=== PATIENT | male | born 1940 | race Caucasian/White ===

== ENCOUNTER → 2018-01-26 08:08 | Outpatient (CLI) | payer MEDICARE, OTHER, SELFPAY ==
[2018-01-26 09:56] LABS: AST(SGOT) 19 U/L (15-37); Alanine Aminotransfer ALT/SGPT 27 U/L (16-61); Albumin, Serum 3.6 g/dL (3.2-5.0); Alkaline Phosphatase 99 U/L (45-117); Bilirubin, Direct 0.08 mg/dL (0.00-0.30); Cholesterol 124 mg/dL (200); Globulin 3.7 g/dL (2.2-4.2); High Density Lipoprotein 25 mg/dL; Protein, Total 7.3 g/dL (6.4-8.2); Triglycerides 168 mg/dL; Very Low Density Lipoprotein 34 mg/dL (5-40)
== END ==
PROVIDERS: Family Provider Family Medicine; PCP Family Medicine; Visit Provider Physician Assistant Medical
DX: E78.5 Hyperlipidemia, unspecified (principal)
CPT/HCPCS: 36415; 80061; 80076

== ENCOUNTER → 2018-05-08 14:08 | Outpatient (CLI) | payer MEDICARE, OTHER, SELFPAY ==
[2018-05-08 14:47] LABS: Absolute Lymphocyte Count 2.24 X10^3/ul (0.83-4.51); Absolute Neutrophil Count 4.7 X10^3/uL (2.0-7.7); Basophil# 0.02 X10^3/uL; Basophil% 0.3 % (0-1); Eosinophil# 0.39 X10^3/uL; Eosinophils% 4.9 % (0-5); Hemoglobin 13.6 g/dl (13.0-16.5); Lymphocyte # 2.24 X10^3/ul (4.0); Lymphocyte % 28.4 % (19-41); Mean Corpuscular Hgb 27.9 pg (27.0-32.0); Monocyte# 0.56 X10^3/uL; Monocyte% 7.1 % (0-10); Neutrophil # 4.66 X10^3/uL (2.7-7.7); Neutrophil % 59.2 % (47-70); Platelet Count 246 K/mm3 (150-450); Red Blood Count 4.88 M/mm3 (4.6-6.2); White Blood Count 7.9 K/mm3 (4.4-11.0)
[2018-05-08 14:50] LABS: POSITIVE COUNT NO; POSITIVE DIFFERENTIAL NO; POSITIVE MORPHOLOGY NO
[2018-05-08 14:59] LABS: Anion Gap 8 (5-15); BUN 22 mg/dL (7-18); BUN/Creat Ratio 13.3 RATIO (10-20); Chloride 106 mmol/L (98-107); Creatinine, Serum 1.66 mg/dL (0.70-1.30); EST Glomerular Filtration Rate 43 mL/min (>60); Est Glom Filt Rate - Afr Amer 52 mL/min (>60); Glucose 273 mg/dL (74-106); Potassium 4.2 mmol/L (3.5-5.1); Sodium Level 138 mmol/L (136-145)
== END ==
PROVIDERS: Family Provider Family Medicine; PCP Family Medicine; Referring Provider Physician Assistant Medical; Visit Provider Physician Assistant Medical
DX: I10 Essential (primary) hypertension (principal); E78.5 Hyperlipidemia, unspecified; I25.10 Atherosclerotic heart disease of native coronary artery without angina pectoris
CPT/HCPCS: 36415; 80048; 85025

== ENCOUNTER → 2018-05-14 05:49 | Outpatient (CLI) | payer MEDICARE, OTHER, SELFPAY ==
--- NOTE | 2018-05-14 08:59 | STRESSREP ---
Stress Test Report Exercise myocardial perfusion stress test. 77-year-old male with a history of chest pain. Stress protocol: Resting EKG demonstrates sinus rhythm with a rate of 56 bpm normal intervals and noted resting blood pressure 148/62 mmHg. The patient exercised according to regular Phuc protocol for a total duration of 7 minutes and 16 seconds. The maximum heart rate attained was 137 bpm which is 94% of maximum predicted heart rate the maximum workload was 8.9 metabolic equivalents. At rest there were no ST or T wave changes noted suggest ischemia peak exercise upsloping ST changes only were noted with no meet the criteria for ischemia. No clinical angina was noted. The resting blood pressures 148/62 with a peak blood pressure 182/72 mmHg. Myocardial perfusion protocol. 11.0 mCi of the dictation by sestamibi was injected at rest. The patient exercised according to regular Phuc protocol for 7 minutes and 16 seconds and at peak exercise 33.0 mCi of technetium 99m sestamibi was injected stress images were obtained stress and rest images were reconstructed and compared in the short axis vertical long horizontal long axis. Gated images were also obtained for next Perfusion SPECT analysis: Review of the stress images demonstrate normal uptake of tracer noted in all areas of myocardium. The resting images similarly demonstrate normal uptake of tracer noted in all areas of myocardium. No areas of reversibility are noted suggest ischemia. Gated SPECT analysis: The gated ejection fraction is noted to be 59%. Conclusion: Normal exercise myocardial perfusion stress test at a moderate workload. Preserved ejection fraction.
== END ==
PROVIDERS: Family Provider Family Medicine; PCP Family Medicine; Referring Provider Internal Medicine Cardiovascular Disease; Visit Provider Internal Medicine Cardiovascular Disease
DX: R07.9 Chest pain, unspecified (principal); I25.10 Atherosclerotic heart disease of native coronary artery without angina pectoris
CPT/HCPCS: 78452; 93017; A9500; A4216

== ENCOUNTER 2019-08-07 20:05 | Observation (INO) | payer MEDICARE, OTHER, SELFPAY ==
[2019-01-25 08:36] VITALS: BMI 28.8
[2019-08-07 20:07] VITALS: BP 159/62; PULSE 77; RESP 18; TEMP 36.9; O2SAT 98; BMI 29.1
--- NOTE | 2019-08-07 20:39 | RAD_ITS ---
STUDY: X-RAY CHEST REASON FOR EXAM: Male, 78 years old. Chest and back pain TECHNIQUE: Single AP portable view of the chest. COMPARISON: October 21, 2011 FINDINGS: There are monitoring devices. The lungs are clear and expanded. There is no demonstrated pleural abnormality. Normal size heart. Normal mediastinum and ramya. Normal visualized pulmonary arteries. Normal visualized aortic arch and descending thoracic aorta. Normal visualized thoracic spine. There is degenerative osteoarthritis of the bilateral shoulders. There is no demonstrated abnormality of the visualized soft tissue structures of the upper abdomen. RAD/Chest 1 View (Portable) IMPRESSION: No acute cardiopulmonary disease. Electronically Signed: Mitchell Pizarro MD at 21:14 EST , Service support ,
--- NOTE | 2019-08-07 20:39 | EKG12_ITS ---
Test Reason : CP Blood Pressure : / mmHG Vent. Rate : 074 BPM Atrial Rate : 074 BPM P-R Int : 152 ms QRS Dur : 086 ms QT Int : 382 ms P-R-T Axes : 016 031 021 degrees QTc Int : 424 ms Normal sinus rhythm Normal ECG Confirmed by RONY MARSHALL, STAN ([id number]), editorial clerk TANYA KNIGHT ([id number]) on 08/09/2019 2:14:59 PM Referred By: Brian Larios Confirmed By:STAN URIBE MD
[2019-08-07 21:24] VITALS: BP 148/73; PULSE 70; RESP 18; O2SAT 95
[2019-08-07 21:29] LABS: Absolute Lymphocyte Count 2.62 X10^3/uL (0.83-4.51); Absolute Neutrophil Count 6.4 X10^3/uL (2.0-7.7); Basophil# 0.03 X10^3/uL; Basophil% 0.3 % (0-1); Eosinophil# 0.57 X10^3/uL; Eosinophils% 5.4 % (0-5); Hematocrit 37.4 % (40-54); Hemoglobin 12.7 g/dL (13.0-16.5); Lymphocyte # 2.62 X10^3/ul (4.0); Lymphocyte % 24.7 % (19-41); Mean Corpuscular Hgb 28.2 pg (27.0-32.0); Mean Corpuscular Volume 83.1 fL (80-94); Mean Platelet Vol. 10.3 fl (6.2-12.0); Monocyte# 0.92 X10^3/uL; Monocyte% 8.7 % (0-10); NRBC Flagged by Analyzer 0 % (0-5); Neutrophil # 6.42 X10^3/uL (2.7-7.7); Neutrophil % 60.5 % (47-70); Platelet Count 224 K/mm3 (150-450); RBC Distribution Width CV 12.7 % (11.6-14.6); RBC Distribution Width SD 38.3 fl (35.1-43.9); White Blood Count 10.6 K/mm3 (4.4-11.0)
[2019-08-07 21:36] LABS: ALB/GLOB Ratio 0.9 RATIO (0.9-2.4); AST(SGOT) 17 U/L (15-37); Alanine Aminotransfer ALT/SGPT 30 U/L (16-61); Albumin, Serum 3.6 g/dL (3.2-5.0); Alkaline Phosphatase 96 U/L (45-117); Anion Gap 8 (5-15); BUN 16 mg/dL (7-18); Chloride 106 mmol/L (98-107); Creatinine, Serum 1.45 mg/dL (0.70-1.30); EST Glomerular Filtration Rate 50 mL/min (>60); Est Glom Filt Rate - Afr Amer 61 mL/min (>60); Estimated Creatinine Clearance 44.75 ml/min; Globulin 3.8 g/dL (2.2-4.2); Glucose 237 mg/dL (74-106); Lipase 219 U/L (73-393); Potassium 4.3 mmol/L (3.5-5.1); Protein, Total 7.4 g/dL (6.4-8.2); Sodium Level 136 mmol/L (136-145)
--- NOTE | 2019-08-07 22:13 | ED.DCSUM_ITS ---
- ER Visit Summary Date of Service: 08/07/19 Chief Complaint: Chest pain History of Present Illness: The patient is a 78 M with bilateral upper chest pain that radiates to his shoulders. It started this morning. Nothing seemed to bring it on. Nothing makes it worse. Nothing makes it better. He took some aspirin. He has a history of hypertension, hyperlipidemia, coronary disease. Last stress test was May 2018 and it was normal. Denies any history of PE or DVT. Denies any history of aortic disease. He is not having any GI symptoms or complaints. Physical Examination: Afebrile and vital signs unremarkable. Alert and oriented. No acute distress. Heart regular. Lungs clear. Abdomen soft nontender. Skin is normal in color. Extremities nontender with no edema. Pulses strong and equal. Test Results: EKG shows sinus rhythm at a rate of 74. No sign of ischemia or infarction pattern. Hemoglobin 12.7, glucose 237, creatinine 1.45, hepatic panel and lipase normal. Troponin normal. Chest x-ray showed nothing acute. Emergency Department Course and Treatment: EKG was done and the patient was placed on a monitor. I treated him with aspirin, but he declined as he had taken it prior to arrival. Pain was subsiding. His work-up was all fairly unremarkable. Because of his age, risk factors, symptoms, I am recommending observation and will contact the hospitalist. His last stress test was normal in May 2018. Treatment Plan: As above Disposition: PCU observation Impression: 1. Chest pain This note was generated with [employer] dictation software. It may contain incorrect words, spelling, and punctuation that were not noted in review of the chart prior to signing ED Disposition - Plan for ED Patient: Referrals: Shivam Cullen MD [Primary Care Provider] -
--- NOTE | 2019-08-07 22:16 | HP.PCM_ITS ---
Problem List (1) Anginal equivalent Status: Acute (2) History of coronary artery stent placement Status: Chronic Comment: PCI-CUATE of proximal to mid RCA w/ 4.0 x 38 mm Ion Stent 05/31/2011 (3) Essential (primary) hypertension Status: Chronic (4) Hyperlipidemia Status: Chronic Qualifiers: Hyperlipidemia type: pure hypercholesterolemia Qualified Code(s): E78.00 - Pure hypercholesterolemia, unspecified; E78.0 - Pure hypercholesterolemia (5) Atherosclerotic heart disease of [place] coronary artery without angina pectoris Status: Chronic Qualifiers: [place] vs. transplanted heart: [place] heart Qualified Code(s): I25.10 - Atherosclerotic heart disease of [place] coronary artery without angina pectoris Comment: PCI-CUATE of proximal to mid RCA w/ 4.0 x 38 mm Ion Stent 05/31/2011 History of Present Illness Date of Admission: 08/07/19 Chief Complaint: Chest Pain The patient is a 78 year old M with a significant history of CAD status post stent; diabetes mellitus; hyperlipidemia and hypertension who presents at the emergency department with chest pain. He described his chest pain as a feeling of gas that begins from his epigastric region and goes to his chest and even into his bilateral shoulders. His chest pain started several hours before presentation. A day before presentation patient ate sauerkraut before going to sleep. When he woke up in the morning his chest pain started at about 6 AM. Patient attributes his chest pain to the sauerkraut that he ate On the day of presentation he took his usual daily dose of baby aspirin in the morning and and a dose of baby aspirin not too long before coming to emergency department. As such he refused any more aspirin at the emergency department. Chest pain increases when he coughs and when he take a deep breath. He took some ruel amy which he thinks helped improve the chest pain. He denies any shortness of breath; nausea; vomiting or diaphoresis. Past Medical History Past Medical History (Chronic Problems): Chronic Problems (Last Reviewed 08/08/19 @ 02:18 by Brian Larios MD) History of coronary artery stent placement (Chronic 05/31/11) PCI-CUATE of proximal to mid RCA w/ 4.0 x 38 mm Ion Stent 05/31/2011 Essential (primary) hypertension (Chronic) Hyperlipidemia (Chronic) Atherosclerotic heart disease of [place] coronary artery without angina pectoris (Chronic) PCI-CUATE of proximal to mid RCA w/ 4.0 x 38 mm Ion Stent 05/31/2011 Medical History: Medical History (Last Reviewed 08/08/19 @ 02:20 by Brian aLrios MD) Essential (primary) hypertension (Chronic) I10 Hyperlipidemia (Chronic) E78.5 Atherosclerotic heart disease of [place] coronary artery without angina pectoris (Chronic) I25.10 PCI-CUATE of proximal to mid RCA w/ 4.0 x 38 mm Ion Stent 05/31/2011 GERD (gastroesophageal reflux disease) K21.9 Type II diabetes mellitus E11.9 Allergies sulfamethoxazole [From Bactrim] Allergy (Severe, Verified 08/07/19 20:06) Shortness of breath severe itching and SOB trimethoprim [From Bactrim] Allergy (Severe, Verified 08/07/19 20:06) Shortness of breath severe itching and SOB acyclovir Allergy (Verified 08/07/19 20:06) Shortness of breath cetirizine HCl [From Zyrtec] Allergy (Verified 08/07/19 20:06) Rash doxepin [Doxepin] Allergy (Verified 08/07/19 20:06) Other fluoxetine HCl [From Prozac] Allergy (Verified 08/07/19 20:06) Other hydromorphone HCl [From Dilaudid] Allergy (Verified 08/07/19 20:06) Other levofloxacin [From Levaquin] Allergy (Verified 08/07/19 20:06) Other losartan [Losartan] Allergy (Verified 08/07/19 20:06) Other ramipril Allergy (Verified 08/07/19 20:06) Other venlafaxine HCl [From Effexor] Allergy (Verified 08/07/19 20:06) Other fluvoxamine maleate [From Luvox] Adverse Reaction (Verified 08/07/19 20:06) Other gemfibrozil [From Lopid] Adverse Reaction (Verified 08/07/19 20:06) Unknown metoprolol Adverse Reaction (Verified 08/07/19 20:06) Other nefazodone HCl [From Serzone] Adverse Reaction (Verified 08/07/19 20:06) Nausea/Vom/Diarrhea nortriptyline [Nortriptyline] Adverse Reaction (Verified 08/07/19 20:06) Other trazodone Adverse Reaction (Verified 08/07/19 20:06) Nausea/Vom/Diarrhea MOLD Adverse Reaction (Uncoded 08/07/19 20:06) Unknown Home Medications: Ambulatory Orders Medication Instructions Recorded Aspirin E.C. [Ecotrin] 81 mg PO DAILY@0800 04/14/14 Pravastatin [Pravachol] 80 mg PO DAILY 04/14/14 amlodipine 10 mg tablet 10 mg PO QDAY 09/05/17 cyanocobalamin (vitamin B-12) 1,000 mcg PO QDAY 09/05/17 1,000 mcg tablet insulin glargine 100 unit/mL 18 unit SC QDAY 09/05/17 subcutaneous solution multivitamin 1 tab PO QDAY 09/05/17 nitroglycerin 0.4 mg sublingual 0.4 mg SUBLINGUAL Q5-15M PRN 09/05/17 tablet valsartan 80 mg tablet 80 mg PO QDAY 09/05/17 clonazepam 0.5 mg tablet 0.5 mg PO BID tab 09/07/17 glipizide 5 mg tablet, extended 5 mg PO DAILY 90 Days #90 tab 05/08/18 release 24 hr metformin 500 mg tablet 1,000 mg PO BIDCM tab 05/08/18 pantoprazole 40 mg tablet,delayed 40 mg PO DAILY #30 tab 02/06/19 release clopidogrel 75 mg tablet 75 mg PO DAILY #30 tab 03/19/19 Surgical History: Surgical History (Last Reviewed 08/08/19 @ 02:18 by Brian Larios MD) History of coronary artery stent placement (Chronic) Onset Date: 05/31/11 Z95.5 PCI-CUATE of proximal to mid RCA w/ 4.0 x 38 mm Ion Stent 05/31/2011 History of left heart catheterization Onset Date: 10/22/11 Z98.890 80% stenosis in the distal LAD. Patent pie-existing stent in the proximal to mid RCA Surgical History: angioplasty, appendectomy, cholecystectomy Smoking Status: Never smoker - *Family History Maternal Family History: Family History (Last Reviewed 08/08/19 @ 02:04 by Brian Larios MD) Father S/P CABG (coronary artery bypass graft), Onset Age: 74 CAD (coronary artery disease) Myocardial infarction Sudden cardiac Mother Diabetes CAD (coronary artery disease) Sudden cardiac Myocardial infarction History Items: No pertinent history Review of Systems Constitutional: Denies: Chills, Fever, Weight Change HEENT: Denies: Head Aches, Sinus Congestion, Sinus Drainage Cardiovascular: Reports: Chest Pain. Denies: Palpitations Respiratory: Denies: Cough, Shortness of breath at rest, Sputum production Gastrointestinal: Reports: Abdominal Pain, Dyspepsia. Denies: Nausea, Vomiting Genitourinary: Denies: Dysuria Musculoskeletal: Reports: Shoulder Pain. Denies: Joint Pain, Joint Tenderness Skin: Denies: Rash, Wounds Neurological: Denies: Numbness, Tingling, Focal weakness Psychiatric: Denies: Anxiety, Depression, Homicidal Ideations, Suicidal Ideations Hematologic/ Lymphatic: Denies: Easy Bruising, Easy Bleeding VTE Information - Inpt Only VTE Present on Admission: No VTE Mechan Device Prophylaxis: SCD's VTE Pharm Prophylaxis ordered?: No Patient Problems: Active and Suspected Problems (Last Reviewed 08/08/19 @ 02:18 by Brian Larios MD) Anginal equivalent (Acute) - Physical Exam Vitals/I&O's: Vital Signs Temp Pulse Resp BP Pulse Ox 98.5 F 70 18 148/73 H 95 08/07/19 20:07 08/07/19 21:24 08/07/19 21:24 08/07/19 21:24 08/07/19 21:24 Oxygen Delivery Method Room Air Weight: 92.1 kg Body Mass Index (BMI) 29.1 Finger Stick Blood Glucose 124 General: Alert, Oriented x3, Cooperative HEENT: Atraumatic, PERRLA, EOMI, Normocephalic Neck: Supple, Trachea Midline Lungs: Clear to auscultation, Normal air movement Cardiovascular: Regular rate, Regular Rhythm, Normal S1, Normal S2, No murmurs Abdomen: Bowel Sounds Present, Soft, Non Tender Extremities: No edema, Capillary Refill Less than 3 Seconds Skin: No rashes, No breakdown Musculoskeletal: No Tenderness to Palpation of Joints or Extremities Neurological: Cranial nerves II-XII grossly intact Psych/Mental Status: Normal Affect, Appropriate Laboratory Results 08/07/19 20:30: WBC 10.6, RBC 4.50 L, Hgb 12.7 L, Hct 37.4 L, MCV 83.1, MCH 28.2, MCHC 34.0, RDW Std Deviation 38.3, RDW Coeff of Cristobal 12.7, Plt Count 224, MPV 10.3, Immature Gran % (Auto) 0.400, Neut % (Auto) 60.5, Lymph % (Auto) 24.7, Mccone % (Auto) 8.7, Eos % (Auto) 5.4 H, Baso % (Auto) 0.3, Absolute Neuts (auto) 6.4, Absolute Lymphs (auto) 2.62, Nucleated RBC % 0 08/07/19 20:30: Sodium 136, Potassium 4.3, Chloride 106, Carbon Dioxide 22.0, Anion Gap 8, BUN 16, Creatinine 1.45 H, Estim Creat Clear Calc 44.75, Est GFR (MDRD) Af Amer 61, Est GFR (MDRD) Non-Af 50 L, BUN/Creatinine Ratio 11.0, Glucose 237 H, Calcium 9.0, Total Bilirubin 0.20, AST 17, ALT 30, Alkaline Phosphatase 96, Troponin I < 0.015, Total Protein 7.4, Albumin 3.6, Globulin 3.8, Albumin/Globulin Ratio 0.9, Lipase 219 Assessment/Plan All Active Problems (Last Reviewed 08/08/19 @ 02:18 by Brian Larios MD) Anginal equivalent (Acute) The patient is a 78 year old M with a significant history of CAD status post stent; diabetes mellitus; hyperlipidemia and hypertension who presents to the emergency department with pain in his epigastric area that radiates to his chest and to his shoulder consistent with anginal equivalent. Anginal equivalent Place on a monitored bed at PCU CXR independently reviewed confirms no acute cardiopulmonary process. EKG independently reviewed confirms sinus rhythm ASA 81 mg p.o. daily continued SL NTG 0.4 mg prn as needed for chest pain We will check lipid panel. Statin: On home pravastatin 80 mg p.o. daily; continued Anti-P2Y12 Receptor antibody: Plavix continued Valsartan continued Serial cardiac enzymes Stat EKG as needed for chest pain Treadmill stress test in the AM if the cardiac enzymes are negative GERD At home patient take Protonix 40 mg daily. Escalate Protonix to 40 mg twice daily for now. Hypertension On presentation his blood pressure was not within goal. Amlodipine and valsartan continued. Trend blood pressure and adjust blood pressure medication as necessary. 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 Patient with hyperglycemia De-escalate dose of long acting insulin since patient will be n.p.o. for stress test. Glipizide continued. Metformin held since it is too early in his admission. Accu-Cheks a.c. and at bedtime and covered with short acting insulin per protocol. Chronic kidney disease stage III CKD Likely from Diabetic nephropathy On presentation his creatinine was 1.45. This is within baseline. Anxiety disorder Wilfridonoeryn continued DVT prophylaxis SCD while planning for cardiac work up for chest pain Code Visit Inpatient E&M: 26726 Init Hosp L3
[2019-08-07 22:38] VITALS: BP 161/77; PULSE 66; RESP 21; O2SAT 97
[2019-08-07 23:05] VITALS: BP 147/68; PULSE 65; RESP 18; TEMP 36.3; O2SAT 98
--- NOTE | 2019-08-07 23:06 | EKG12_ITS ---
Test Reason : CP ADMIT Blood Pressure : / mmHG Vent. Rate : 063 BPM Atrial Rate : 063 BPM P-R Int : 168 ms QRS Dur : 088 ms QT Int : 404 ms P-R-T Axes : 016 041 027 degrees QTc Int : 413 ms Normal sinus rhythm Normal ECG When compared with ECG of 07-AUG-2019 20:15, MANUAL COMPARISON REQUIRED, DATA IS UNCONFIRMED Confirmed by NOE MARSHALL, MANUELITO ([id number]), senior editor TURNER EVANS ([id number]) on 08/13/2019 9:20:21 AM Referred By: Brian Larios Confirmed By:MANUELITO LIU MD
[2019-08-07 23:15] VITALS: PULSE 71
[2019-08-07 23:18] VITALS: BMI 29.0
[2019-08-07 23:24] VITALS: BMI 29.0
[2019-08-07] MEDS: Acetaminophen 325 MG Tablet 650 MG PO (23:43)
[2019-08-07] MEDS: Pantoprazole Sodium 40 MG Tablet PO (23:43)
[2019-08-07 23:51] LABS: Bedside Glucose 96 mg/dL (70-110)
[2019-08-08 02:08] LABS: Absolute Lymphocyte Count 2.37 X10^3/uL (0.83-4.51); Absolute Neutrophil Count 5.5 X10^3/uL (2.0-7.7); Basophil# 0.03 X10^3/uL; Basophil% 0.3 % (0-1); Eosinophil# 0.66 X10^3/uL; Hematocrit 35.4 % (40-54); Hemoglobin 11.9 g/dL (13.0-16.5); Lymphocyte # 2.37 X10^3/ul (4.0); Mean Corp Hgb Conc 33.6 g/dL (32-36); Mean Corpuscular Hgb 27.9 pg (27.0-32.0); Mean Corpuscular Volume 82.9 fL (80-94); Mean Platelet Vol. 9.7 fl (6.2-12.0); Monocyte# 0.89 X10^3/uL; Monocyte% 9.4 % (0-10); NRBC Flagged by Analyzer 0 % (0-5); Neutrophil # 5.49 X10^3/uL (2.7-7.7); Platelet Count 204 K/mm3 (150-450); RBC Distribution Width CV 12.8 % (11.6-14.6); RBC Distribution Width SD 38.5 fl (35.1-43.9); Red Blood Count 4.27 M/mm3 (4.6-6.2); White Blood Count 9.5 K/mm3 (4.4-11.0)
[2019-08-08 02:37] LABS: Anion Gap 8 (5-15); BUN 17 mg/dL (7-18); Calcium,Total 9.1 mg/dL (8.5-10.1); Chloride 109 mmol/L (98-107); Cholesterol 121 mg/dL (200); Creatinine, Serum 1.31 mg/dL (0.70-1.30); EST Glomerular Filtration Rate 56 mL/min (>60); Est Glom Filt Rate - Afr Amer 68 mL/min (>60); Estimated Creatinine Clearance 47.22 ml/min; Glucose 109 mg/dL (74-106); High Density Lipoprotein 24 mg/dL; Potassium 4.1 mmol/L (3.5-5.1); Sodium Level 138 mmol/L (136-145); Triglycerides 246 mg/dL; Very Low Density Lipoprotein 49 mg/dL (5-40)
[2019-08-08 03:15] VITALS: PULSE 66
[2019-08-08 05:15] VITALS: BP 145/68; PULSE 68; RESP 16; TEMP 36.7; O2SAT 98
[2019-08-08] MEDS: Aspirin E.C. 81 MG Tablet PO (05:19)
[2019-08-08] MEDS: Acetaminophen 325 MG Tablet 650 MG PO (05:45)
[2019-08-08 06:40] LABS: Bedside Glucose 139 mg/dL (70-110)
[2019-08-08 07:27] VITALS: PULSE 74
[2019-08-08 08:14] VITALS: O2SAT 96
[2019-08-08 09:30] VITALS: BP 141/79; PULSE 79; RESP 18; TEMP 36.9; O2SAT 97
--- NOTE | 2019-08-08 11:40 | DCINST_ITS ---
- Discharge Diagnoses Current Active Problems: Current Active and Chronic Problems (Last Reviewed 08/08/19 @ 02:20 by Brian Larios MD) Anginal equivalent (Acute) You will use the following diet at home:: Calorie/Carbohydrate Controlled (specify 1200, 1400, etc) - 1600 ADA diet, Cardiac Your food should be the consistency of: Regular Discharge Activity: May Not Drive - for 1 week Weight Bearing Status: Weight bearing as tolerated Call your doctor if you observe: Fever of 101 or Higher, Coldness, Increased Pain, Numbness or Tingling, Inability to urinate, Inability to have a bowel movement, Shortness of breath, Dizziness, Fainting spells, Swelling in the ankles, Chest pain, Increased palpitations (irregular heartbeat), Calf discomfort, Uncontrolled pain Allergies/Adverse Reactions: Allergies sulfamethoxazole [From Bactrim] Allergy (Severe, Verified 08/07/19 20:06) Shortness of breath severe itching and SOB trimethoprim [From Bactrim] Allergy (Severe, Verified 08/07/19 20:06) Shortness of breath severe itching and SOB acyclovir Allergy (Verified 08/07/19 20:06) Shortness of breath cetirizine HCl [From Zyrtec] Allergy (Verified 08/07/19 20:06) Rash doxepin [Doxepin] Allergy (Verified 08/07/19 20:06) Other fluoxetine HCl [From Prozac] Allergy (Verified 08/07/19 20:06) Other hydromorphone HCl [From Dilaudid] Allergy (Verified 08/07/19 20:06) Other levofloxacin [From Levaquin] Allergy (Verified 08/07/19 20:06) Other losartan [Losartan] Allergy (Verified 08/07/19 20:06) Other ramipril Allergy (Verified 08/07/19 20:06) Other venlafaxine HCl [From Effexor] Allergy (Verified 08/07/19 20:06) Other fluvoxamine maleate [From Luvox] Adverse Reaction (Verified 08/07/19 20:06) Other gemfibrozil [From Lopid] Adverse Reaction (Verified 08/07/19 20:06) Unknown metoprolol Adverse Reaction (Verified 08/07/19 20:06) Other nefazodone HCl [From Serzone] Adverse Reaction (Verified 08/07/19 20:06) Nausea/Vom/Diarrhea nortriptyline [Nortriptyline] Adverse Reaction (Verified 08/07/19 20:06) Other trazodone Adverse Reaction (Verified 08/07/19 20:06) Nausea/Vom/Diarrhea MOLD Adverse Reaction (Uncoded 08/07/19 20:06) Unknown Medications to take at Discharge Aspirin E.C. [Ecotrin] 81 mg PO DAILY@0800 04/14/14 amlodipine 10 mg tablet 10 mg PO QDAY 09/05/17 cyanocobalamin (vitamin B-12) 1,000 mcg tablet 1,000 mcg PO QDAY 09/05/17 multivitamin 1 tab PO QDAY 09/05/17 nitroglycerin 0.4 mg sublingual tablet 0.4 mg SUBLINGUAL Q5-15M PRN 09/05/17 valsartan 80 mg tablet 80 mg PO QDAY 09/05/17 clonazepam 0.5 mg tablet 0.5 mg PO BID tab 09/07/17 pantoprazole 40 mg tablet,delayed release 40 mg PO DAILY #30 tab 02/06/19 clopidogrel 75 mg tablet 75 mg PO DAILY #30 tab 03/19/19 Atorvastatin Calcium [Lipitor] 80 mg PO QHS #30 tab 08/08/19 Glipizide [Glucotrol Xl] 10 mg PO BREAKFAST 90 Days #90 tab 08/08/19 Insulin Glargine,Hum.rec.anlog [Lantus] 15 unit SUBCUT QDAY #0 08/08/19 metFORMIN HCl [Glucophage] 500 mg PO BIDCM #0 tab 08/08/19 The following prescriptions were given: Atorvastatin Calcium [Lipitor] 80 mg PO QHS #30 tab Transmission Status: Pending to [facility] Primary Care Physician: Shivam Cullen MD [Primary Care Provider] - Please follow up with your Primary Care Physician in: in 2 week Test Results: Test results from this visit will be discussed in further detail at your follow- up appointment, if applicable. Please Follow Up With: Eamon Duque MD When: as scheduled.
--- NOTE | 2019-08-08 12:15 | STRESSREP_ITS ---
Stress Test Report Exercise myocardial perfusion stress test. 78-year-old man with a history of chest pain. Stress protocol: Resting EKG demonstrates normal sinus rhythm with a rate of 71 bpm normal intervals are noted resting blood pressures 152/76 mmHg. The patient exercised according to regular Phuc protocol for a total duration of 6 minutes and 15 s econds. The maximum heart rate was 137 bpm which was 95% of maximum predicted heart rate the maximum workload was 7.3 metabolic equivalents. At rest there were no ST or T wave changes noted suggest ischemia peak exercise upsloping ST changes were noted with no meet the criteria for ischemia. No clinical angina was noted the test was terminated due to attainment of target heart rate and leg discomfort. Myocardial perfusion protocol. 11.5 mCi of technetium 99m sestamibi was injected at rest. The patient exercised according to regular Phuc protocol for a total duration of 6 minutes and 15 seconds at peak exercise 35.0 mCi of technetium 99m sestamibi was injected stress images were obtained stress and rest images were reconstructed in comparing the short axis vertical and horizontal long axis. Gated images were also obtained Perfusion SPECT analysis: Review of the stress images demonstrate normal uptake of tracer noted in all areas of myocardium the rest images similar demonstrate normal uptake of tracer noted in all areas of myocardium. No areas of reversibility are noted suggest ischemia no previous infarct is noted. Gated SPECT analysis: The gated ejection fraction is noted to be 62%. Conclusion: Normal exercise myocardial perfusion stress test at a moderate workload. Preserved ejection fraction.
[2019-08-08] MEDS: Cyanocobalamin 500 MCG Tablet 1000 MCG PO (12:38)
[2019-08-08] MEDS: Pantoprazole Sodium 40 MG Tablet PO (12:38)
[2019-08-08] MEDS: glipiZIDE XL 5 MG Tablet PO (12:38)
[2019-08-08] MEDS: Multivitamins,Therapeutic Tablet 1 TABLET PO (12:38)
[2019-08-08] MEDS: Clopidogrel Bisulfate 75 MG Tablet PO (12:39)
[2019-08-08] MEDS: amLODIPine 10 MG Tablet PO (12:39)
[2019-08-08] MEDS: clonazePAM 0.5 MG Tablet PO (12:43)
[2019-08-08 12:46] LABS: Bedside Glucose 160 mg/dL (70-110)
--- NOTE | 2019-08-08 13:11 | PCM.DC.SUM ---
Discharge Date and Diagnosis Date of Admission: 08/07/19 Date of Discharge: 08/08/19 - Primary Discharge Diagnosis Active and Suspected Problems (Last Reviewed 08/08/19 @ 02:20 by Brian Larios MD) Anginal equivalent (Acute) - Secondary Discharge Diagnosis Chronic Problems (Last Reviewed 08/08/19 @ 02:20 by Brian Larios MD) History of coronary artery stent placement (Chronic 05/31/11) PCI-CUATE of proximal to mid RCA w/ 4.0 x 38 mm Ion Stent 05/31/2011 Essential (primary) hypertension (Chronic) Hyperlipidemia (Chronic) Atherosclerotic heart disease of [place] coronary artery without angina pectoris (Chronic) PCI-CUATE of proximal to mid RCA w/ 4.0 x 38 mm Ion Stent 05/31/2011 Hospital Course and Treatment Imaging Results: 08/08/19 05:55 Nuclear Stress Test - Treadmil [NM] AM (NON MEDS) Operations: - - Umbilical wound debridement with excision of mesh and small bowel fistula repair x 2 Summary of Care Provided: The patient is a 79 year old M with a significant history of CAD status post stent; diabetes mellitus; hyperlipidemia and hypertension who was admitted through ER for chest pain with radiation to left shoulder, epigastric pain consistent with angina equivalent. 1. Atypical chest pain acute coronary syndrome ruled out. Serial troponin enzymes were negative. Patient had nuclear stress test which was negative for stress-induced ischemia. EKG showed normal sinus rhythm. Chest x-ray no acute cardiopulmonary process. Patient discharged on home medications. GERD: Stable. On Protonix 40 mg twice daily Hypertension: Blood pressure was controlled. 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 The presided XL dose increased to 10 mg daily. Lantus insulin dose increased to 15 units subcu daily. Chronic kidney disease stage III CKD Likely from Diabetic nephropathy On presentation his creatinine was 1.45. This is within baseline. Patient creatinine improved to 1.31. Dyslipidemia: Patient triglyceride is 246, VLDL 49, HDL 24: Patient is on pravastatin 80 mg daily. It seems pravastatin is not controlling his cholesterol. Statin changed to atorvastatin 80 mg daily. Patient does not have history of myalgia or other side effect of statin. Anxiety disorder Klonopin continued Discharge medication reconciliation done. Discharge follow-up instructions completed. Discharge process discussed with the patient and all questions were answered to patient's satisfaction. Holding metformin, good glucose control with glipizide and Lantus insulin and statin was discussed with the patient and patient's . Total time spent, exact 35 minutes on discharge meds reconciliation, examination, review of imaging and blood test and discussion with the patient on follow-up instructions. Laboratory Results 08/07/19 20:30: WBC 10.6, RBC 4.50 L, Hgb 12.7 L, Hct 37.4 L, MCV 83.1, MCH 28.2, MCHC 34.0, RDW Std Deviation 38.3, RDW Coeff of Cristobal 12.7, Plt Count 224, MPV 10.3, Immature Gran % (Auto) 0.400, Neut % (Auto) 60.5, Lymph % (Auto) 24.7, [place] % (Auto) 8.7, Eos % (Auto) 5.4 H, Baso % (Auto) 0.3, Absolute Neuts (auto) 6.4, Absolute Lymphs (auto) 2.62, Nucleated RBC % 0 08/07/19 20:30: Sodium 136, Potassium 4.3, Chloride 106, Carbon Dioxide 22.0, Anion Gap 8, BUN 16, Creatinine 1.45 H, Estim Creat Clear Calc 44.75, Est GFR (MDRD) Af Amer 61, Est GFR (MDRD) Non-Af 50 L, BUN/Creatinine Ratio 11.0, Glucose 237 H, Calcium 9.0, Total Bilirubin 0.20, AST 17, ALT 30, Alkaline Phosphatase 96, Troponin I < 0.015, Total Protein 7.4, Albumin 3.6, Globulin 3.8, Albumin/Globulin Ratio 0.9, Lipase 219 08/07/19 23:42: POC Glucose 96 08/07/19 23:49: Troponin I < 0.015 08/08/19 02:05: Sodium 138, Potassium 4.1, Chloride 109 H, Carbon Dioxide 21.0, Anion Gap 8, BUN 17, Creatinine 1.31 H, Estim Creat Clear Calc 47.22, Est GFR (MDRD) Af Amer 68, Est GFR (MDRD) Non-Af 56 L, BUN/Creatinine Ratio 13.0, Glucose 109 H, Calcium 9.1, Troponin I < 0.015, Triglycerides 246 H, Cholesterol 121, LDL Cholesterol 48, VLDL Cholesterol 49 H, HDL Cholesterol 24 L 08/08/19 02:05: WBC 9.5, RBC 4.27 L, Hgb 11.9 L, Hct 35.4 L, MCV 82.9, MCH 27.9, MCHC 33.6, RDW Std Deviation 38.5, RDW Coeff of Cristobal 12.8, Plt Count 204, MPV 9.7, Immature Gran % (Auto) 0.300, Neut % (Auto) 58.0, Lymph % (Auto) 25.0, [place] % (Auto) 9.4, Eos % (Auto) 7.0 H, Baso % (Auto) 0.3, Absolute Neuts (auto) 5.5, Absolute Lymphs (auto) 2.37, Nucleated RBC % 0 08/08/19 06:34: POC Glucose 139 H 08/08/19 12:38: POC Glucose 160 H Subjective: Seen and examined. Patient does not have chest pain. Hemodynamically stable. Serial troponins are negative - Physical Exam Vitals/I&O's: Vital Signs Temp Pulse Resp BP Pulse Ox 98.5 F 79 18 141/79 H 97 08/08/19 09:30 08/08/19 09:30 08/08/19 09:30 08/08/19 09:30 08/08/19 09:30 Oxygen Delivery Method Room Air Weight: 196 lb 10.437 oz Body Mass Index (BMI) 29.0 Finger Stick Blood Glucose 124 Intake and Output for Last 24 Hours 08/06/19 08/07/19 08/08/19 23:59 23:59 23:59 Intake Total 240 / 240 Balance 240 / 240 General: Alert, Oriented x3, Cooperative HEENT: Atraumatic, PERRLA, EOMI, Normocephalic Neck: Supple, No JVD, Negative Carotid Bruits, - - CABG scar. Lungs: Clear to auscultation, Normal air movement, No rhonchi, No wheeze, No rales Cardiovascular: Regular rate, Regular Rhythm, Normal S2, No murmurs Abdomen: Bowel Sounds Present, Soft, Non Tender, Non-Distended Extremities: No edema, Capillary Refill Less than 3 Seconds Skin: No rashes, No breakdown Musculoskeletal: No Tenderness to Palpation of Joints or Extremities, Arthritic Changes Neurological: Cranial nerves II-XII grossly intact Psych/Mental Status: Normal Affect, Appropriate Laboratory Results 08/07/19 20:30: WBC 10.6, RBC 4.50 L, Hgb 12.7 L, Hct 37.4 L, MCV 83.1, MCH 28.2, MCHC 34.0, RDW Std Deviation 38.3, RDW Coeff of Cristobal 12.7, Plt Count 224, MPV 10.3, Immature Gran % (Auto) 0.400, Neut % (Auto) 60.5, Lymph % (Auto) 24.7, [place] % (Auto) 8.7, Eos % (Auto) 5.4 H, Baso % (Auto) 0.3, Absolute Neuts (auto) 6.4, Absolute Lymphs (auto) 2.62, Nucleated RBC % 0 08/07/19 20:30: Sodium 136, Potassium 4.3, Chloride 106, Carbon Dioxide 22.0, Anion Gap 8, BUN 16, Creatinine 1.45 H, Estim Creat Clear Calc 44.75, Est GFR (MDRD) Af Amer 61, Est GFR (MDRD) Non-Af 50 L, BUN/Creatinine Ratio 11.0, Glucose 237 H, Calcium 9.0, Total Bilirubin 0.20, AST 17, ALT 30, Alkaline Phosphatase 96, Troponin I < 0.015, Total Protein 7.4, Albumin 3.6, Globulin 3.8, Albumin/Globulin Ratio 0.9, Lipase 219 08/07/19 23:42: POC Glucose 96 08/07/19 23:49: Troponin I < 0.015 08/08/19 02:05: Sodium 138, Potassium 4.1, Chloride 109 H, Carbon Dioxide 21.0, Anion Gap 8, BUN 17, Creatinine 1.31 H, Estim Creat Clear Calc 47.22, Est GFR (MDRD) Af Amer 68, Est GFR (MDRD) Non-Af 56 L, BUN/Creatinine Ratio 13.0, Glucose 109 H, Calcium 9.1, Troponin I < 0.015, Triglycerides 246 H, Cholesterol 121, LDL Cholesterol 48, VLDL Cholesterol 49 H, HDL Cholesterol 24 L 08/08/19 02:05: Sodium Cancelled, Potassium Cancelled, Chloride Cancelled, Carbon Dioxide Cancelled, Anion Gap Cancelled, BUN Cancelled, Creatinine Cancelled, Estim Creat Clear Calc Cancelled, Est GFR (MDRD) Af Amer Cancelled, Est GFR (MDRD) Non-Af Cancelled, BUN/Creatinine Ratio Cancelled, Glucose Cancelled, Calcium Cancelled 08/08/19 02:05: WBC 9.5, RBC 4.27 L, Hgb 11.9 L, Hct 35.4 L, MCV 82.9, MCH 27.9, MCHC 33.6, RDW Std Deviation 38.5, RDW Coeff of Cristobal 12.8, Plt Count 204, MPV 9.7, Immature Gran % (Auto) 0.300, Neut % (Auto) 58.0, Lymph % (Auto) 25.0, [place] % (Auto) 9.4, Eos % (Auto) 7.0 H, Baso % (Auto) 0.3, Absolute Neuts (auto) 5.5, Absolute Lymphs (auto) 2.37, Nucleated RBC % 0 08/08/19 06:34: POC Glucose 139 H 08/08/19 12:38: POC Glucose 160 H Current Medications Acetaminophen (Tylenol) 650 mg PO Q6H PRN PRN PRN Reason: Pain Score 1-10/Temp > 100.7 F Last Admin: 08/08/19 05:45 Dose: 650 mg Documented by: Amlodipine Besylate (Norvasc) 10 mg PO DAILY [facility] Last Admin: 08/08/19 12:39 Dose: 10 mg Documented by: Aspirin (Ecotrin) 81 mg PO DAILY@0800 [facility] Last Admin: 08/08/19 05:19 Dose: 81 mg Documented by: Clonazepam (Klonopin) 0.5 mg PO BID [facility] Last Admin: 08/08/19 12:43 Dose: 0.5 mg Documented by: Clopidogrel Bisulfate (Plavix) 75 mg PO DAILY [facility] Last Admin: 08/08/19 12:39 Dose: 75 mg Documented by: Cyanocobalamin (Vitamin B12) 1,000 mcg PO DAILY [facility] Last Admin: 08/08/19 12:38 Dose: 1,000 mcg Documented by: [facility] Last Admin: 08/08/19 12:38 Dose: 5 mg Documented by: Glucagon () 1 mg IM .X1 PRN PRN Reason: Hypoglycemia Sodium Chloride () 250 mls @ 15 mls/hr IV .[id number] PRN PRN Reason: Saline Flush Sodium Chloride () 250 mls @ 15 mls/hr IV .[id number] PRN PRN Reason: Additional IVPB Infusion Dextrose (Dextrose 10%-Water) 250 mls @ 999 mls/hr IV .Q16M PRN; Protocol PRN Reason: HYPOGLYCEMIA Insulin Glargine (Lantus ([facility])) 12 units SC DAILY [facility] Last Admin: 08/08/19 12:39 Dose: 12 u Documented by: Insulin Human Lispro (Humalog Kwikpen ([facility])) 0 unit SC ACHS [facility]; Protocol Last Admin: 08/08/19 13:03 Dose: Not Given Documented by: Multivitamins (Multivitamin) 1 tablet PO DAILY@0800 [facility] Last Admin: 08/08/19 12:38 Dose: 1 tablet Documented by: Nitroglycerin (Nitrostat) 0.4 mg SUBLINGUAL Q5M PRN PRN Reason: CARDIAC/CHEST PAIN Pantoprazole Sodium (Protonix) 40 mg PO BID [facility] Last Admin: 08/08/19 12:38 Dose: 40 mg Documented by: Pravastatin Sodium (Pravachol) 80 mg PO QHS [facility] Sodium Chloride () 10 - 40 ml IV UD PRN PRN Reason: SALINE FLUSH Valsartan (Diovan) 80 mg PO DAILY [facility] Discharge Activity: May Not Drive - for 1 week Weight Bearing Status: Weight bearing as tolerated Call your doctor if you observe: Fever of 101 or Higher, Coldness, Increased Pain, Numbness or Tingling, Inability to urinate, Inability to have a bowel movement, Shortness of breath, Dizziness, Fainting spells, Swelling in the ankles, Chest pain, Increased palpitations (irregular heartbeat), Calf discomfort, Uncontrolled pain Home Medications: Medications to take at Discharge Aspirin E.C. [Ecotrin] 81 mg PO DAILY@0800 04/14/14 amlodipine 10 mg tablet 10 mg PO QDAY 09/05/17 cyanocobalamin (vitamin B-12) 1,000 mcg tablet 1,000 mcg PO QDAY 09/05/17 multivitamin 1 tab PO QDAY 09/05/17 nitroglycerin 0.4 mg sublingual tablet 0.4 mg SUBLINGUAL Q5-15M PRN 09/05/17 valsartan 80 mg tablet 80 mg PO QDAY 09/05/17 clonazepam 0.5 mg tablet 0.5 mg PO BID tab 09/07/17 pantoprazole 40 mg tablet,delayed release 40 mg PO DAILY #30 tab 02/06/19 clopidogrel 75 mg tablet 75 mg PO DAILY #30 tab 03/19/19 Atorvastatin Calcium [Lipitor] 80 mg PO QHS #30 tab 08/08/19 Glipizide [Glucotrol Xl] 10 mg PO BREAKFAST 90 Days #90 tab 08/08/19 Insulin Glargine,Hum.rec.anlog [Lantus] 15 unit SUBCUT QDAY #0 08/08/19 metFORMIN HCl [Glucophage] 500 mg PO BIDCM #0 tab 08/08/19 Following Prescrptions Were Given to Patient: Atorvastatin Calcium [Lipitor] 80 mg PO QHS #30 tab Transmission Status: Received by [facility] [facility] Primary Care Physician: Shivam Cullen MD [Primary Care Provider] - Please follow up with your Primary Care Physician in: in 2 week Please Follow Up With: Eamon Duque MD When: as scheduled. Medical Necessity - Tobacco Use Smoking Status: Former smoker Tobacco Use: Cigars Meaningful Use Info Meaningful Use Diagnoses (Choose all that apply): None applicable Code Visit OBSV E&M: 09028 Observation care discharge
--- NOTE | 2019-08-08 14:25 | PHA.DC.MR ---
Pharmacy Service has performed discharge medication reconciliation for this patient. Home Medications Aspirin E.C. [Ecotrin] 81 mg PO DAILY@0800 04/14/14 amlodipine 10 mg tablet 10 mg PO QDAY 09/05/17 cyanocobalamin (vitamin B-12) 1,000 mcg tablet 1,000 mcg PO QDAY 09/05/17 multivitamin 1 tab PO QDAY 09/05/17 nitroglycerin 0.4 mg sublingual tablet 0.4 mg SUBLINGUAL Q5-15M PRN 09/05/17 valsartan 80 mg tablet 80 mg PO QDAY 09/05/17 clonazepam 0.5 mg tablet 0.5 mg PO BID tab 09/07/17 pantoprazole 40 mg tablet,delayed release 40 mg PO DAILY #30 tab 02/06/19 clopidogrel 75 mg tablet 75 mg PO DAILY #30 tab 03/19/19 Atorvastatin Calcium [Lipitor] 80 mg PO QHS #30 tab 08/08/19 Glipizide [Glucotrol Xl] 10 mg PO BREAKFAST 90 Days #90 tab 08/08/19 Insulin Glargine,Hum.rec.anlog [Lantus] 15 unit SUBCUT QDAY #0 08/08/19 metFORMIN HCl [Glucophage] 500 mg PO BIDCM #0 tab 08/08/19 The patient's discharge medication list was reviewed for discrepancies and discrepancies were resolved.
== END 2019-08-08 13:10 | disposition home or self-care (01) ==
LOC: ED 21:08 → PCU 22:39
PROVIDERS: Admitting Provider Hospitalist; Emergency Provider Emergency Medicine; Family Provider Family Medicine; PCP Family Medicine; Referring Provider Hospitalist; Visit Provider Internal Medicine
DX: I25.118 Atherosclerotic heart disease of native coronary artery with other forms of angina pectoris (principal); E78.5 Hyperlipidemia, unspecified; K21.9 Gastro-esophageal reflux disease without esophagitis; I12.9 Hypertensive chronic kidney disease with stage 1 through stage 4 chronic kidney disease, or unspecified chronic kidney disease; N18.3 Chronic kidney disease, stage 3 (moderate); F41.9 Anxiety disorder, unspecified; E11.22 Type 2 diabetes mellitus with diabetic chronic kidney disease; Z79.899 Other long term (current) drug therapy; Z79.82 Long term (current) use of aspirin; Z79.02 Long term (current) use of antithrombotics/antiplatelets; Z79.4 Long term (current) use of insulin; Z87.891 Personal history of nicotine dependence
CPT/HCPCS: 36415; 71045; 78452; 80048; 80053; 80061; 82962; 83690; 84484; 85025; 93005; 93017; 97161; 99218; 99285; A9500; A4216; G0378

== ENCOUNTER 2020-03-26 17:54 | Emergency (ER) | payer MEDICARE, OTHER, SELFPAY ==
[2020-01-30 09:28] VITALS: BMI 28.2
[2020-03-26 17:54] VITALS: BP 150/74; PULSE 59; RESP 18; TEMP 36.6; O2SAT 98; BMI 27.7
--- NOTE | 2020-03-26 18:37 | EKG12_ITS ---
Test Reason : DIZZY Blood Pressure : / mmHG Vent. Rate : 054 BPM Atrial Rate : 054 BPM P-R Int : 164 ms QRS Dur : 084 ms QT Int : 436 ms P-R-T Axes : 000 039 037 degrees QTc Int : 413 ms Sinus bradycardia Otherwise normal ECG Confirmed by RIA MARSHALL, PEYMAN ([id number]), news video editor TURNER EVANS ([id number]) on 04/03/2020 11:18:46 A M Referred By: MARYCRUZ Confirmed By:DONI ROLLINS MD
--- NOTE | 2020-03-26 18:50 | RAD_ITS ---
STUDY: X-RAY CHEST REASON FOR EXAM: Male, 79 years old. DIZZINESS TECHNIQUE: PA and lateral views of the chest. COMPARISON: August 07, 2019 FINDINGS: The lungs are clear and expanded. There is no demonstrated pleural abnormality. There are coronary artery endovascular stent(s) present. Normal mediastinum and ramya. Normal visualized pulmonary arteries. Normal visualized aortic arch and descending thoracic aorta. Normal visualized thoracic spine. Normal visualized ribs, clavicles, and shoulders. There are surgical clips in the right upper abdomen. RAD/Chest PA and Lateral IMPRESSION: Degenerative changes, as described above. No demonstrated acute cardiopulmonary process. Electronically Signed: Mitchell Pizarro MD at 19:10 EDT , Service support ,
--- NOTE | 2020-03-26 19:36 | CT_ITS ---
STUDY: CTA HEAD AND NECK WITH CONTRAST REASON FOR EXAM: Male, 79 years old. DIZZY PAIN IN BACk OF HEAD AND NECK. RADIATION DOSAGE (If Supplied By Facility): CTDIvol = ( 31.02 ) mGy, DLP = ( 1518.36 ) mGycm TECHNIQUE: CT angiography was performed with a multi-detector CT scanner. Data acquisition was obtained from the skull base through the vertex following intravenous administration of 100ml isovue 370. MIP images were reconstructed from the axial data set. Post-processing of the angiographic images was performed, with multiplanar reformation and 3D reconstruction. Individualized dose optimization techniques were used for this CT. COMPARISON: No relevant priors. FINDINGS: Normal bilateral petrous carotid arteries. Normal right cavernous carotid artery with a normal supraclinoid bifurcation. Normal left cavernous carotid artery with a normal supraclinoid bifurcation. Normal right A1 segments of the anterior cerebral artery. Normal left A1 segments of the anterior cerebral artery. Normal intact anterior communicating artery (ACOM). Normal bilateral A2 segments of the anterior cerebral arteries. There is an accessory anterior cerebral artery. Normal right M1 and M2 segments of the middle cerebral arteries, with a normal M1 bifurcation. Normal left M1 and M2 segments of the middle cerebral arteries, with a normal M1 bifurcation. Normal right posterior communicating artery (PCOM). Normal left posterior communicating artery (PCOM). Normal bilateral vertebral arteries. Normal basilar artery with a normal basilar bifurcation. The visualized bilateral superior cerebellar (SCA) arteries are normal. Normal bilateral P1, P2 and visualized P3 segments of the posterior cerebral arteries. There is no demonstrated aneurysm of the [place]. There is involutional change with atrophy and periventricular microangiopathy of the visualized brain. AORTIC ARCH: Normal visualized aortic arch. Normal origins of the brachiocephalic, left common carotid, and left subclavian arteries. RIGHT CAROTID ARTERIES: Normal right common carotid artery (CCA). Normal right common carotid bulb. Normal origin of the right internal carotid (ICA) artery without a hemodynamically significant stenosis. Normal visualized cervical portion of the right internal carotid artery. Normal origin of the right external carotid artery (ECA). LEFT CAROTID ARTERIES: Normal left common carotid artery (CCA). There is mild atherosclerotic plaque formation with minimal narrowing of the left carotid bulb. Normal origin of the left internal carotid (ICA) artery without a hemodynamically significant stenosis. Normal visualized cervical portion of the left internal carotid artery. Normal origin of the left external carotid artery (ECA). VERTEBRAL ARTERIES: Normal bilateral vertebral arteries. CT/CTA Head AND Neck W/ Contrast IMPRESSION: No aneurysm or high-grade narrowing. Intracranial structures demonstrate involutional change. Electronically Signed: Mitchell Pizarro MD at 21:01 EDT , Service support ,
--- NOTE | 2020-03-26 19:37 | ED.VIS.GEN ---
History of Present Illness Chief Complaint: Dizziness Informant: Patient Onset: Days Timing: Intermittent Narrative: Patient presents secondary to intermittent dizziness. 1 week ago he got up around 3 AM to go the bathroom. He states when he laid back down in bed the room started spinning. He got up and sat in his chair and when he woke in the morning the symptoms seem to be resolved. Over the past week he has had intermittent very mild similar symptoms. He had some nausea the first episode, but none since. Patient was seen by ENT yesterday and he reports a normal exam at that time. He did state they tilted me way back on a table and turned my head side to side but were unable to re-create my dizziness. Patient does complain of some posterior neck pain that he has had chronically but it is somewhat worse over the past week. - Past Medical History (1) GERD (gastroesophageal reflux disease) Status: Chronic (2) Atherosclerotic heart disease of [place] coronary artery without angina pectoris Status: Chronic (3) Essential (primary) hypertension Status: Chronic (4) History of coronary artery stent placement Status: Chronic Comment: PCI-CUATE of proximal to mid RCA w/ 4.0 x 38 mm Ion Stent 05/31/2011 (5) Hyperlipidemia Status: Chronic Past Medical History - Allergies and Home Meds Allergies/Adverse Reactions: Allergies sulfamethoxazole [From Bactrim] Allergy (Severe, Verified 03/26/20 17:59) Shortness of breath severe itching and SOB trimethoprim [From Bactrim] Allergy (Severe, Verified 03/26/20 17:59) Shortness of breath severe itching and SOB acyclovir Allergy (Verified 03/26/20 17:59) Shortness of breath cetirizine HCl [From Zyrtec] Allergy (Verified 03/26/20 17:59) Rash doxepin [Doxepin] Allergy (Verified 03/26/20 17:59) Other fluoxetine HCl [From Prozac] Allergy (Verified 03/26/20 17:59) Other hydromorphone HCl [From Dilaudid] Allergy (Verified 03/26/20 17:59) Other levofloxacin [From Levaquin] Allergy (Verified 03/26/20 17:59) Other losartan [Losartan] Allergy (Verified 03/26/20 17:59) Other ramipril Allergy (Verified 03/26/20 17:59) Other venlafaxine HCl [From Effexor] Allergy (Verified 03/26/20 17:59) Other fluvoxamine maleate [From Luvox] Adverse Reaction (Verified 03/26/20 17:59) Other gemfibrozil [From Lopid] Adverse Reaction (Verified 03/26/20 17:59) Unknown metoprolol Adverse Reaction (Verified 03/26/20 17:59) Other nefazodone HCl [From Serzone] Adverse Reaction (Verified 03/26/20 17:59) Nausea/Vom/Diarrhea nortriptyline [Nortriptyline] Adverse Reaction (Verified 03/26/20 17:59) Other trazodone Adverse Reaction (Verified 03/26/20 17:59) Nausea/Vom/Diarrhea MOLD Adverse Reaction (Uncoded 03/26/20 17:59) Unknown Primary Care Physician: Shivam Cullen MD [Primary Care Provider] - Prior records reviewed: Yes Surgical History: angioplasty, appendectomy, cholecystectomy Lives: Spouse/ Significant Other Smoking Status: Former smoker - Family History Maternal Family History: Family History (Last Reviewed 01/30/20 @ 10:[address] Eamon Duque MD) Father S/P CABG (coronary artery bypass graft), Onset Age: 74 CAD (coronary artery disease) Myocardial infarction Sudden cardiac Mother Diabetes CAD (coronary artery disease) Sudden cardiac Myocardial infarction Family History: Reports: No pertinent history Review of Systems General: Denies: Chills, Fever Eyes: Denies: Visual changes - bilaterally ENT: Denies: Bilateral ear pain Cardiovascular: Denies: Chest pain, Palpitations Respiratory: Denies: Dyspnea, Cough Gastrointestinal: Reports: Nausea. Denies: Abdominal pain, Vomiting Musculoskeletal: Reports: Neck pain Skin: Denies: Rash Neurological: Denies: Headache Hematologic: Denies: Easy bruising, Easy bleeding Allergy: Denies: Uticaria Physical Exam Vital Signs/Narrative: Vital Signs Temp Pulse Resp BP Pulse Ox 03/26/20 17:54 98 F 59 L 18 150/74 H 98 Inital Vital Signs reviewed: Yes General: Well nourished, Well developed Head: Normocephalic Eyes: Perrl, EOMI ENT: Moist mucous membranes Neck: Supple Cardiovascular: Regular rate, Regular rhythm Respiratory: No distress, CTA bilaterally Abdomen: Soft, Nontender Skin: Normal color Neurological: Alert, Oriented x3, Normal Strength, Normal Sensation Psychological: Normal affect Diagnostic/Tx/Re-eval Impressions Chest X-Ray 03/26/20 18:50 IMPRESSION: Degenerative changes, as described above. No demonstrated acute cardiopulmonary process. Electronically Signed: Mitchell Pizarro MD at 19:10 EDT , Service support , Head/Neck CTA 03/26/20 19:36 IMPRESSION: No aneurysm or high-grade narrowing. Intracranial structures demonstrate involutional change. Electronically Signed: Mitchell Pizarro MD at 21:01 EDT , Service support , 03/26/20 18:50 Chest PA and Lateral [RAD] Stat 03/26/20 19:36 CTA Head AND Neck W/ Contrast [CT] Stat Laboratory Results 03/26/20 03/26/20 03/26/20 19:26 19:26 19:26 WBC 10.4 RBC 4.66 Hgb 13.4 Hct 39.5 L MCV 84.8 MCH 28.8 MCHC 33.9 RDW Std Deviation 37.5 RDW Coeff of Cristobal 12.4 Plt Count 260 MPV 9.7 Immature Gran % (Auto) 0.400 Neut % (Auto) 56.3 Lymph % (Auto) 29.5 [place] % (Auto) 8.0 Eos % (Auto) 5.2 H Baso % (Auto) 0.6 Absolute Neuts (auto) 5.8 Absolute Lymphs (auto) 3.06 Nucleated RBC % 0 PT 12.5 INR 1.0 APTT 27.8 Sodium 138 Potassium 4.0 Chloride 108 H Carbon Dioxide 25.0 Anion Gap 5 BUN 24 H Creatinine 1.51 H Estim Creat Clear Calc 40.97 Est GFR (MDRD) Af Amer 58 L Est GFR (MDRD) Non-Af 48 L BUN/Creatinine Ratio 15.9 Glucose 135 H Calcium 9.1 - EKG Initial EKG Interpretation: Sinus Bradycardia - Sinus bradycardia 54 bpm. No acute ischemia. - Medical Decision Making Patient was given IV fluids in the ED. CTA head and neck is unremarkable. I believe his symptoms are consistent with peripheral vertigo. He will be given a prescription for Antivert that he can use. He is to follow with his primary care physician. ED Disposition - Plan for ED Patient: Disposition: Home or Assisted Living Diagnosis: Vertigo Instructions: ED BPV Vertigo Prescriptions: Meclizine HCl [Antivert] 0.5 - 1 tab PO 4X/DAY PRN PRN #20 tab PRN Reason: Dizziness Transmission Status: Pending to [facility] [facility] Referrals: Shivam Cullen MD [Primary Care Provider] - 1 Week
[2020-03-26 19:41] LABS: Absolute Lymphocyte Count 3.06 X10^3/uL (0.83-4.51); Absolute Neutrophil Count 5.8 X10^3/uL (2.0-7.7); Basophil# 0.06 X10^3/uL; Basophil% 0.6 % (0-1); Eosinophil# 0.54 X10^3/uL; Eosinophils% 5.2 % (0-5); Hematocrit 39.5 % (40-54); Hemoglobin 13.4 g/dL (13.0-16.5); Lymphocyte # 3.06 X10^3/ul (4.0); Lymphocyte % 29.5 % (19-41); Mean Corp Hgb Conc 33.9 g/dL (32-36); Mean Corpuscular Hgb 28.8 pg (27.0-32.0); Mean Corpuscular Volume 84.8 fL (80-94); Mean Platelet Vol. 9.7 fl (6.2-12.0); Monocyte# 0.83 X10^3/uL; NRBC Flagged by Analyzer 0 % (0-5); Neutrophil # 5.83 X10^3/uL (2.7-7.7); Neutrophil % 56.3 % (47-70); Platelet Count 260 K/mm3 (150-450); RBC Distribution Width CV 12.4 % (11.6-14.6); RBC Distribution Width SD 37.5 fl (35.1-43.9); Red Blood Count 4.66 M/mm3 (4.6-6.2); White Blood Count 10.4 K/mm3 (4.4-11.0)
[2020-03-26 19:49] LABS: Anion Gap 5 (5-15); BUN 24 mg/dL (7-18); BUN/Creat Ratio 15.9 RATIO (10-20); Calcium,Total 9.1 mg/dL (8.5-10.1); Chloride 108 mmol/L (98-107); Creatinine, Serum 1.51 mg/dL (0.70-1.30); EST Glomerular Filtration Rate 48 mL/min (>60); Est Glom Filt Rate - Afr Amer 58 mL/min (>60); Estimated Creatinine Clearance 40.97 ml/min; Glucose 135 mg/dL (74-106); Sodium Level 138 mmol/L (136-145)
[2020-03-26 19:50] LABS: Prothrombin Time (Protime)PT. 12.5 SECONDS (11.7-14.9)
[2020-03-26 19:51] LABS: Partial Thromboplast Time 27.8 Seconds (24.1-36.2)
[2020-03-26 19:58] VITALS: BP 164/64; PULSE 73; RESP 22
[2020-03-26] MEDS: 0.9% Normal Saline 1,000 ML 50 ML IV (19:59)
--- NOTE | 2020-03-26 20:06 | ED.RN ---
discussed [facility] order with Dr. Gilliam. Orders to discontinue
[2020-03-26] MEDS: Meclizine 12.5 MG Tablet PO (22:39)
[2020-03-26 22:42] VITALS: BP 177/66; PULSE 56; RESP 18
== END 2020-03-26 22:47 | disposition home or self-care (01) ==
PROVIDERS: Emergency Provider Emergency Medicine; PCP Family Medicine
DX: R42 Dizziness and giddiness (principal); E78.5 Hyperlipidemia, unspecified; I10 Essential (primary) hypertension; I25.10 Atherosclerotic heart disease of native coronary artery without angina pectoris; M54.2 Cervicalgia; R00.1 Bradycardia, unspecified; R11.0 Nausea; K21.9 Gastro-esophageal reflux disease without esophagitis; Z82.49 Family history of ischemic heart disease and other diseases of the circulatory system; Z87.891 Personal history of nicotine dependence; Z88.1 Allergy status to other antibiotic agents; Z88.2 Allergy status to sulfonamides; Z88.5 Allergy status to narcotic agent; Z90.49 Acquired absence of other specified parts of digestive tract; Z95.5 Presence of coronary angioplasty implant and graft; M54.9 Dorsalgia, unspecified
CPT/HCPCS: 70496; 70498; 71046; 80048; 85025; 85610; 85730; 93005; 99285; J7030; Q9967; A4216

== ENCOUNTER → 2020-12-10 | Outpatient (CLI) | payer MEDICARE, OTHER, SELFPAY ==
[2020-12-10 12:33] LABS: Protein, Urine (Random) 26.4 mg/dL (<11.9); Protein:Creat Ratio 266 mg/g CRE (0-200)
== END | disposition home or self-care (01) ==
LOC: LABSPEC 11:59
PROVIDERS: PCP Family Medicine; Visit Provider Internal Medicine Nephrology
DX: N18.30 Chronic kidney disease, stage 3 unspecified (principal)
CPT/HCPCS: 82570; 84156

== ENCOUNTER → 2020-12-14 14:04 | Outpatient (CLI) | payer MEDICARE, OTHER, SELFPAY ==
--- NOTE | 2020-12-14 14:08 | US_ITS ---
STUDY: RENAL ULTRASOUND - COMPLETE REASON FOR EXAM: Male, 80 years old. Elevated BUN/creatinine TECHNIQUE: Ultrasound evaluation of the kidneys was performed with real-time and static leone-scale imaging. COMPARISON: None. FINDINGS: RIGHT KIDNEY: Normal location of the right kidney, which is normal in size. The right kidney measures 11 x 4.8 x 4.7 cm. There is a normal cortex of the right kidney. The renal cortex measures 1.4 cm. There is no right renal mass or cyst. There are no right renal calculi. There is no right hydronephrosis. DISTAL RIGHT URETER: There is non-visualization of the distal right ureter. There is no demonstrated right ureterovesical junction calculus. There is a visualized right ureteral jet. LEFT KIDNEY: Normal location of the left kidney, which is normal in size. The left kidney measures 9.97 x 5.50 x 5 cm. There is a normal cortex of the left kidney. The renal cortex measures 1.9 cm. There is a simple 0.9 cm midpole cyst. There are no left renal calculi. There is no left hydronephrosis. DISTAL LEFT URETER: There is non-visualization of the distal left ureter. There is no demonstrated left ureterovesical junction calculus. There is a visualized left ureteral jet. AORTA: There is no elongation or tortuosity of the abdominal aorta. I.V.C.: The IVC is patent. BLADDER: The bladder is sonographically normal US/Kidney and Bladder IMPRESSION: No suspicious sonographic findings, simple left renal cyst, no specific follow-up needed Electronically Signed: Drew Mosqueda MD at 10:38 EDT , Service support ,
== END ==
PROVIDERS: PCP Family Medicine; Referring Provider Internal Medicine Nephrology; Visit Provider Internal Medicine Nephrology
DX: N18.30 Chronic kidney disease, stage 3 unspecified (principal)
CPT/HCPCS: 76770

== ENCOUNTER → 2020-12-30 09:57 | Outpatient (CLI) | payer MEDICARE, OTHER, SELFPAY ==
[2020-12-30 10:59] LABS: Albumin, Serum 3.5 g/dL (3.2-5.0); BUN 24 mg/dL (7-18); BUN/Creat Ratio 14.9 RATIO (10-20); Calcium,Total 8.5 mg/dL (8.5-10.1); Chloride 106 mmol/L (98-107); Creatinine, Serum 1.61 mg/dL (0.70-1.30); EST Glomerular Filtration Rate 44 mL/min (>60); Est Glom Filt Rate - Afr Amer 54 mL/min (>60); Glucose 265 mg/dL (74-106); Potassium 4.3 mmol/L (3.5-5.1); Sodium Level 136 mmol/L (136-145)
== END ==
PROVIDERS: PCP Family Medicine; Visit Provider Internal Medicine Nephrology
DX: N18.30 Chronic kidney disease, stage 3 unspecified (principal)
CPT/HCPCS: 36415; 80069

== ENCOUNTER → 2021-05-12 09:54 | Outpatient (CLI) | payer MEDICARE, OTHER, SELFPAY ==
--- NOTE | 2021-05-12 09:55 | VDLE_ITS ---
Reason For Study: Swelling RIGHT LEFT CFV is compressible, spontaneous, phasic, GSV is normal. competent and demonstrates normal CFV is compressible, spontaneous, phasic, augmentation. competent, and demonstrates normal Procedure augmentation. This is a venous duplex using B-mode, color FV is compressible, spontaneous, phasic, flow and spectral Doppler. competent and demonstrates normal Exam performed in department. augmentation. A preliminary report was called and/or faxed POP V is compressible, spontaneous, phasic, to Liliana. competent and demonstrates normal augmentation. T/P Trunk is compressible. PTV is compressible. LT PerV is compressible. VL/Venous Duplex US, Unilateral Interpretation Summary There is no evidence of left lower extremity deep vein thrombosis. Left great s aphenous vein appears patent and compressible segmentally. Normal flow patterns right common femoral vein Ordering Physician: Toribio Higgins Referring Physician: Sav Cullen Performed By: Shabana Almaraz RVT
[2021-05-12 11:10] LABS: Albumin, Serum 3.4 g/dL (3.2-5.0); BUN 26 mg/dL (7-18); BUN/Creat Ratio 16.4 RATIO (10-20); Calcium,Total 8.8 mg/dL (8.5-10.1); Chloride 107 mmol/L (98-107); Creatinine, Serum 1.59 mg/dL (0.70-1.30); EST Glomerular Filtration Rate 45 mL/min (>60); Est Glom Filt Rate - Afr Amer 54 mL/min (>60); Glucose 163 mg/dL (74-106); Phosphorus 3.6 mg/dL (2.5-4.9); Potassium 4.6 mmol/L (3.5-5.1); Sodium Level 138 mmol/L (136-145)
[2021-05-12 12:14] LABS: Protein, Urine (Random) 37.7 mg/dL (<11.9); Protein:Creat Ratio 227 mg/g CRE (0-200)
== END ==
PROVIDERS: Internal Medicine Nephrology; PCP Family Medicine; Referring Provider Surgery; Visit Provider Surgery
DX: M79.605 Pain in left leg (principal); M79.89 Other specified soft tissue disorders; N18.31 Chronic kidney disease, stage 3a; E11.22 Type 2 diabetes mellitus with diabetic chronic kidney disease
CPT/HCPCS: 36415; 80069; 82570; 84156; 93971

== ENCOUNTER 2021-05-28 07:32 | Day surgery (SDC) | payer MEDICARE, OTHER, SELFPAY ==
[2021-05-28 08:22] VITALS: BP 137/68; PULSE 67; RESP 18; TEMP 35.9; O2SAT 98; BMI 27.3
--- NOTE | 2021-05-28 08:26 | HP.PCM_ITS ---
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 Required: No Is patient in pain?: No Allergies sulfamethoxazole [From Bactrim] Allergy (Severe, Verified 05/12/21 09:15) Shortness of breath trimethoprim [From Bactrim] Allergy (Severe, Verified 05/12/21 09:15) Shortness of breath acyclovir Allergy (Verified 05/12/21 09:15) Shortness of breath cetirizine HCl [From Zyrtec] Allergy (Verified 05/12/21 09:15) Rash doxepin [Doxepin] Allergy (Verified 05/12/21 09:15) Other fluoxetine HCl [From Prozac] Allergy (Verified 05/12/21 09:15) Other hydromorphone HCl [From Dilaudid] Allergy (Verified 05/12/21 09:15) Other levofloxacin [From Levaquin] Allergy (Verified 05/12/21 09:15) Other losartan [Losartan] Allergy (Verified 05/12/21 09:15) Other ramipril Allergy (Verified 05/12/21 09:15) Other venlafaxine HCl [From Effexor] Allergy (Verified 05/12/21 09:15) Other fluvoxamine maleate [From Luvox] Adverse Reaction (Verified 05/12/21 09:15) Other gemfibrozil [From Lopid] Adverse Reaction (Verified 05/12/21 09:15) Unknown metoprolol Adverse Reaction (Verified 05/12/21 09:15) Other nefazodone HCl [From Serzone] Adverse Reaction (Verified 05/12/21 09:15) Nausea/Vom/Diarrhea nortriptyline [Nortriptyline] Adverse Reaction (Verified 05/12/21 09:15) Other trazodone Adverse Reaction (Verified 05/12/21 09:15) Nausea/Vom/Diarrhea MOLD Adverse Reaction (Uncoded 01/28/21 09:32) Unknown Medications aspirin 81 mg PO DAILY@0800 14 [History Confirmed 05/12/21] amlodipine 10 mg tablet 10 mg PO QDAY 09/05/17 [History Confirmed 05/12/21] cyanocobalamin (vitamin B-12) 1,000 mcg tablet 1,000 mcg PO QDAY 09/05/17 [History Confirmed 05/12/21] multivitamin 1 tab PO QDAY 09/05/17 [History Confirmed 05/12/21] clonazepam 0.5 mg tablet 0.5 mg PO BID tab 09/07/17 [History Confirmed 05/12/21] atorvastatin 80 mg PO QHS #30 tab 08/08/19 [Rx Confirmed 05/12/21] insulin glargine 15 unit SUBCUT QDAY #0 08/08/19 [Rx Confirmed 05/12/21] dicyclomine 10 mg capsule 10 mg PO TID cap 01/30/20 [History Confirmed 05/12/21] nitroglycerin 0.4 mg sublingual tablet 0.4 mg SUBLINGUAL Q5-15M PRN #25 tab 11/09/20 [Rx Confirmed 05/12/21] clopidogrel 75 mg tablet 75 mg PO DAILY #90 tablet 11/12/20 [Rx Confirmed 05/12/21] pantoprazole 40 mg tablet,delayed release 40 mg PO DAILY #30 tab 01/05/21 [Rx Confirmed 05/12/21] finasteride 5 mg tablet 5 mg PO DAILY tab 01/28/21 [History Confirmed 05/12/21] glipizide 10 mg tablet, extended release 24 hr 10 mg PO DAILY tab 01/28/21 [History Confirmed 05/12/21] valsartan 80 mg tablet 80 mg PO BID #180 tab 02/02/21 [Rx Confirmed 05/12/21] [facility] Medical History (Updated 05/12/21 @ 09:[address] Toribio Higgins MD) Atherosclerotic heart disease of [place] coronary artery without angina pectoris BPH (benign prostatic hyperplasia) CKD (chronic kidney disease) stage 3, GFR 30-59 ml/min Essential (primary) hypertension GERD (gastroesophageal reflux disease) History of DVT (deep vein thrombosis) History of intestinal obstruction Hyperlipidemia Left leg pain Neuralgia Obstructive sleep apnea Swelling of left lower extremity TIA (transient ischemic attack) Type II diabetes mellitus Surgical History History of appendectomy History of cholecystectomy History of coronary artery stent placement (05/31/11) History of herniorrhaphy History of left heart catheterization (10/22/11) Family History Father , age 79 of [place] S/P CABG (coronary artery bypass graft), Onset Age: 74 CAD (coronary artery disease) Myocardial infarction Sudden cardiac Mother , age not mentioned, sudden cardiac Diabetes CAD (coronary artery disease) Sudden cardiac Myocardial infarction Social History Smoking Status: Former smoker HPI HPI HPI: JESUS CASTANEDA, is a 80 M who presents to the office today for surgical consultation regarding abdominal pain. 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 She had previously had a mesh repair at that area in 2001. The mesh was removed and the bowel loops were repaired. He has a history of cholecystectomy umbilical hernia repair 2001 appendectomy 1992. He had a right inguinal hernia repair 2009 and then the umbilical small bowel fistula surgery April 15, 2014 he was admitted to the hospital Dr. Get Velasquez consulted April 21, 2015 because of abdominal pain. An etiology of the abdominal pain was not determined at that time. The patient is currently being referred by Dr. Sav Cullen because of ongoing concerns regarding abdominal pain. The patient is being treated with Protonix twice daily because of a complaint of abdominal pain and burning sensation in his chest. He was additionally complaining of bloating and lightheadedness. The most recent colonoscopy was recorded October 2009. As of May 03, 2021 hemoglobin A1c was 8.5. White blood cell count was 6.3 and hemoglobin 13.5 with hematocrit of 39.8 and a platelet count of 200,000. Liver function tests were normal except for an alkaline phosphatase of 184. BUN is 23 and creatinine 1.87. Potassium was 4.5 Patient states that he will have bouts of significant pain. After eating he will get nauseated sweaty almost feel like he is going to faint and then he will move his bowels and that will pass. He states that he will have in the morning frequent small bowel movements that incompletely empty. This is been a change in his bowel habit. He claims he previously was on Metformin and after being taken off of that he improved but now symptoms are increasing. He states that several days ago he was in so much discomfort he almost went to the emergency room. He denies bright red blood per rectum or melena. He has not had any weight loss. He has not had COVID-19. He received one of the vaccinations and developed a red blotchy response and so was told not to have the second dosing. 3 weeks ago while mowing the lawn he had his left foot drop into a hole. He has ankle pain and swelling of the left leg. He is complaining of buttock and sacral pain from where he fell. ROS General General: No weight change, appetite, fatigue, colon cancer, breast cancer or weakness HEENT HEENT: No difficulty swallowing, eye injury, eye surgery, swollen glands or hoarseness Endo Endocrine: Yes diabetes mellitus; No thyroid disease, thyroid cancer, Hair loss, heat intolerance or cold intolerance Musc Musculoskeletal: Yes back problems and arthritis; No rheumatoid arthritis, gout or joint pain Cardio Cardiovascular: Yes heart disease, high blood pressure and heart stent; No murmur, pacemaker, atrial fibrillation, heart attack, palpitations, shortness of breat with exertion or chest pain Psych Psychiatric: No depression, anxiety or hearing voices Resp Respiratory: No shortness of breath, No sleep apnea, Yes cough, No COPD, No asthma, No emphysema and No wheezing Gastro Gastrointestinal: Yes abdominal pain, No nausea or vomiting, Yes diarrhea, No constipation, No blood in stool, Yes acid reflux, No hemorrhoids, No ulcers, No gallbladder problem and No black,tarry stools Art Hematologic: Yes blood thinners, No blood disorders, No bleeding, No anemia and Yes blood clots Neuro Neurologic: No weakness Exam Const General: cooperative, healthy appearing, comfortable and no acute distress Nutritional Appearance: overweight Orientation: alert and awake [facility] Head: normal to inspection Eyes General: appearance normal, both eyes and all related structures Resp Effort & Inspection: normal respiratory effort Auscultation: clear to auscultation bilaterally Cardio Rate: regular rate Rhythm: regular rhythm GI Palpation: soft and no hepatosplenomegaly Other: Healed transverse incision right lower quadrant from perforated appendicitis. Healed umbilical incision Generally mildly distended with diffuse nonspecific left-sided tenderness. Bowel sounds present unremarkable Musc Cervical Spine: normal cervical lordosis Neuro General: patient alert and patient awake Extrem Other: Tender left ankle. 1+ swelling left distal lower leg. No palpable cords left calf Psych Appearance: grossly normal Assessment and Plan Assessment and Plan (1) Swelling of left lower extremity: Status: Acute (2) Left leg pain: Status: Acute (3) Abdominal pain: Status: Acute (4) Change in bowel habit: Status: Acute Orders: Orders: Venous Duplex US, Unilateral Today M79.89, M79.605 Plan - Dr. Toribio Higgins MD: The patient has history of trauma to the left lower extremity. He has a remote history of DVT of that left lower extremity that occurred during care for his ruptured appendicitis. He had a very prolonged postoperative course. I recommend to him a left lower extremity venous duplex scan to assess for possible left lower extremity DVT at this time. The patient's abdominal pain episode of unclear etiology. I propose for him a combined esophagogastroduodenoscopy and colonoscopy with possible biopsy or polypectomy as indicated. He has had a change of bowel habits. He has generalized pain. Almost sounds like possible intermittent partial obstruction however that would not explain the epigastric component over the change of stool caliber. The patient has chronic renal insufficiency. I would propose for him if he has another severe bout of abdominal pain that at that setting we get an oral contrasted CT scan of the abdomen and pelvis. I would not recommend IV contrast because of his chronic renal failure. He has had a previous cholecystectomy and previous appendectomy so those would not be etiologic. It is possible that he is having intermittent bouts of small bowel obstruction. He has had an opportunity ask and have questions answered. I appreciate the ongoing opportunity of assisting with surgical care. Copy: Dr. Sav Higgins M.D., F.A.C.S. I have re-examined the patient. There are no clinical changes since date of exam.
[2021-05-28] MEDS: Lactated Ringers 1,000 ML 100 ML IV (08:34)
[2021-05-28 08:40] LABS: Bedside Glucose 144 mg/dL (70-110)
--- NOTE | 2021-05-28 09:00 | EGD_PTH ---
PATIENT: JESUS CASTANEDA LOC: EN U#:[id number] AGE/SX: 80/M ROOM: RE05/28/[address]: Dr. Toribio Higgins MD : 1940 BED: DIS: 05/28/2021 SPEC #: [id number] RECD: 05/28/21 10:01 STATUS: ELEONORA MICHELE #: [id number] MONA: 05/28/21 09:[address]: Toribio Higgins DEPT: SURGICAL PATHOLOGY RECD BY: Ana Pizarro ENTERED: 05/28/21 11:41 SP TYPE: EGD BIOPSY [facility] DR: Dr. Shivam Cullen MD Tissues: A - Gastric mucous membrane B - Stomach, NOS C - Esophagus, NOS Procedures: Special Stain Group II Surgery Specimen Level IV Alcian Blue/PAS (control) HEADER OPERATION: Colonoscopy, EGD ([facility] [place]) PRE-OP DIAGNOSIS: Abdominal pain, change of bowel habit TISSUE SUBMITTED: A ? Biopsy antrum for H. pylori and path, B ? Biopsy greater curvature polyp, C ? Biopsy distal esophagus MICROSCOPIC DIAGNOSIS A. Gastric antrum, biopsy: Mild chronic gastritis. See comment. B. Stomach, greater curvature polyp, biopsy: Polypoid fragments of benign gastric mucosa with minimal chronic inflammation. C. Distal esophagus, biopsy: Fragment of benign squamous mucosa. No evidence of goblet cell metaplasia. See comment. AM:shea 05/31/2021 COMMENT A. The results of immunohistochemistry for Helicobacter pylori will be reported separately ([id number]). C. Alcian blue/PAS stain with matched control supports the above diagnosis. MICROSCOPIC DESCRIPTION Slides are reviewed. GROSS DESCRIPTION A - Received in fixative is one container labeled with the patient's name and designated antrum biopsy. The specimen consists of one irregular fragment of light perez soft tissue that measures 0.5 x 0.5 x 0.1 cm. The specimen is totally submitted in one cassette. B - Received in fixative is one container labeled with the patient's name and designated greater curvature polyp biopsy. The specimen consists of one irregular fragment of light perez soft tissue that measures 0.5 x 0.3 x 0.1 cm. The specimen is totally submitted in one cassette. C - Received in fixative is one container labeled with the patient's name and designated biopsy distal esophagus. The specimen consists of one irregular fragment of light perez soft tissue that measures 0.3 x 0.3 x 0.1 cm. The specimen is totally submitted in one cassette. / SJ:rg 05/28/21 TC:3 CPT: 22752 x3, [id number]
--- NOTE | 2021-05-28 09:00 | IMM_PTH ---
PATIENT: JESUS CASTANEDA LOC: EN U#:[id number] AGE/SX: 80/M ROOM: RE05/28/[address]: Dr. Toribio Higgins MD : 1940 BED: DIS: 05/28/2021 SPEC #: [id number] RECD: 05/28/21 14:07 STATUS: ELEONORA REJosué #: [id number] MONA: 05/28/21 09:[address]: Toribio Higgins DEPT: IMMUNOHISTOCHEMISTRY RECD BY: Elizabeth Roque ENTERED: 05/28/21 14:07 SP TYPE: IMMUNO OTHR DR: Dr. Shivam Cullen MD Tissues: A - Stomach, NOS Procedures: H Pylori (initial) PHYSICIAN & INSTITUTION [place] [id number] SPECIMEN INFORMATION: Tissue Source: A ? Antrum biopsy Clinical Info: Abdominal pain, change of bowel habit Specimen Number: [id number] CPT code: 12240 METHODOLOGY: Deparaffinized sections of prefer/formalin-fixed tissue or PAP/DQ stained slides are incubated with monoclonal/polyclonal antibodies/oligonucleotide probes. Localization is made via biotin free immunoperoxidase method. Appropriate controls are performed and reacted as expected. Results on target cell population are indicated in the following table: RESULTS: ANTIBODY / CLONE RESULT Block A H Pylori (polyclonal) negative These tests were developed and their performance characteristics determined by [facility]. They may not have been cleared or approved by the U.S. Food and Drug Administration. The FDA has determined that such clearance or approval is not necessary. INTERPRETATION: A. Antrum biopsy: Negative for Helicobacter pylori organisms. AM:shea 05/31/2021
[2021-05-28 09:45] VITALS: BP 101/53; BP 137/68; PULSE 67; RESP 16; TEMP 36.2; O2SAT 98
--- NOTE | 2021-05-28 09:46 | OP.CCLET_ITS ---
05/28/2021 Shivam Cullen Re : Upper GI endoscopy procedure for Jeet Elkins Marvar Subhash This procedure was performed on Friday, May 28, 2021. My impressions and recommendations are as follows: Impressions : - Reflux esophagitis. Biopsied. - Small hiatal hernia. - Gastritis. Biopsied. - Normal examined duodenum. - Multiple gastric polyps. Resected and retrieved. Recommendations : - Await pathology results. - Use sucralfate tablets 1 gram PO QID. - Continue present medications. My findings are described in the full procedure note, which is enclosed. If I can be of further assistance, please feel free to contact me at Doctor phone number(s): Work: . Sincerely, Toribio Higgins MD 05/28/2021 9:45:49 AM This report has been signed electronically.
--- NOTE | 2021-05-28 09:46 | OP.EGD_ITS ---
Patient Name: Jeet Elkins Procedure Date: 05/28/2021 9:10 AM Date of : 1940 Age: 80 Procedure: Upper GI endoscopy Indications: Epigastric abdominal pain Providers: Toribio Higgins MD Referring MD: Toribio Higgins MD Medicines: See the Anesthesia note for documentation of the administered medications Complications: No immediate complications. Procedure: Pre-Anesthesia Assessment: - Prior to the procedure, a History and Physical was performed, and patient medications and allergies were reviewed. The patient's tolerance of previous anesthesia was also reviewed. The risks and benefits of the procedure and the sedation options and risks were discussed with the patient. All questions were answered, and informed consent was obtained. Prior Anticoagulants: The patient has taken no previous anticoagulant or antiplatelet agents. ASA Grade Assessment: II - A patient with mild systemic disease. After reviewing the risks and benefits, the patient was deemed in satisfactory condition to undergo the procedure. After obtaining informed consent, the endoscope was passed under direct vision. Throughout the procedure, the patient's blood pressure, pulse, and oxygen saturations were monitored continuously. The Endoscope was introduced through the mouth, and advanced to the second part of duodenum. The upper GI endoscopy was accomplished without difficulty. The patient tolerated the procedure well. Scope In: 9:17:53 AM Scope Out: 9:23:07 AM Total Procedure Duration Time 0 hours 5 minutes 14 seconds Findings: Esophagitis with no bleeding was found 39 cm from the incisors. Biopsies were taken with a cold forceps for histology. A small hiatal hernia was present. Localized moderate inflammation characterized by adherent blood was found in the gastric body. Biopsies were taken with a cold forceps for histology. The examined duodenum was normal. Multiple 2 mm sessile polyps with no stigmata of recent bleeding were found on the greater curvature of the stomach. The polyp was removed with a cold biopsy forceps. Resection and retrieval were complete. Impression: - Reflux esophagitis. Biopsied. - Small hiatal hernia. - Gastritis. Biopsied. - Normal examined duodenum. - Multiple gastric polyps. Resected and retrieved. Recommendation: - Await pathology results. - Use sucralfate tablets 1 gram PO QID. - Continue present medications. Procedure Code(s): --- Professional --- 88006, Esophagogastroduodenoscopy, flexible, transoral; with biopsy, single or multiple Diagnosis Code(s): --- Professional --- K21.0, Gastro-esophageal reflux disease with esophagitis K44.9, Diaphragmatic hernia without obstruction or gangrene K29.70, Gastritis, unspecified, without bleeding K31.7, Polyp of stomach and duodenum R10.13, Epigastric pain CPT copyright 2017 [employer]. All rights reserved. The codes documented in this report are preliminary and upon gas analyst review may be revised to meet current compliance requirements. Toribio Higgins MD 05/28/2021 9:45:49 AM This report has been signed electronically. Number of Addenda: 0 Note Initiated On: 05/28/2021 9:10 AM
--- NOTE | 2021-05-28 09:49 | OP.COLON_ITS ---
Patient Name: Jeet Elkins Procedure Date: 05/28/2021 9:24 AM Date of : 1940 Age: 80 Procedure: Colonoscopy Indications: Generalized abdominal pain Providers: Toribio Higgins MD Referring MD: Toribio Higgins MD Patient Profile: Last Colonoscopy: 10 years ago. Complications: No immediate complications. Procedure: Pre-Anesthesia Assessment: - Prior to the procedure, a History and Physical was performed, and patient medications and allergies were reviewed. The patient's tolerance of previous anesthesia was also reviewed. The risks and benefits of the procedure and the sedation options and risks were discussed with the patient. All questions were answered, and informed consent was obtained. Prior Anticoagulants: The patient has taken no previous anticoagulant or antiplatelet agents. ASA Grade Assessment: II - A patient with mild systemic disease. After reviewing the risks and benefits, the patient was deemed in satisfactory condition to undergo the procedure. After I obtained informed consent, the scope was passed under direct vision. Throughout the procedure, the patient's blood pressure, pulse, and oxygen saturations were monitored continuously. The pediatric colonoscope was introduced through the anus and advanced to the cecum, identified by appendiceal orifice and ileocecal valve. The colonoscopy was performed without difficulty. The patient tolerated the procedure well. The quality of the bowel preparation was good. The ileocecal valve was photographed. Scope In: 9:26:20 AM Scope Withdrawal Time 0 hours 7 minutes 13 seconds Scope Out: 9:39:04 AM Total Procedure Duration Time 0 hours 12 minutes 44 seconds Findings: The digital rectal exam findings include non-thrombosed external hemorrhoids, non-thrombosed internal hemorrhoids and internal hemorrhoids that prolapse with straining, but spontaneously regress to the resting position (Grade II). Pertinent negatives include normal prostate (size, shape, and consistency). The colon (entire examined portion) appeared normal. Impression: - Non-thrombosed external hemorrhoids, non-thrombosed internal hemorrhoids and internal hemorrhoids that prolapse with straining, but spontaneously regress to the resting position (Grade II) found on digital rectal exam. - The entire examined colon is normal. - No specimens collected. Recommendation: - Discharge patient to home. - Resume previous diet. - Continue present medications. - Repeat colonoscopy is not recommended due to current age (66 years or older) for screening purposes. Procedure Code(s): --- Professional --- 36183, Colonoscopy, flexible; diagnostic, including collection of specimen(s) by brushing or washing, when performed (separate procedure) Diagnosis Code(s): --- Professional --- K64.1, Second degree hemorrhoids K64.4, Residual hemorrhoidal skin tags R10.84, Generalized abdominal pain CPT copyright 2017 [employer]. All rights reserved. The codes documented in this report are preliminary and upon joy operator helper review may be revised to meet current compliance requirements. Toribio Higgins MD 05/28/2021 9:49:17 AM This report has been signed electronically. Number of Addenda: 0 Note Initiated On: 05/28/2021 9:24 AM
--- NOTE | 2021-05-28 09:49 | OP.CCLET_ITS ---
05/28/2021 Shivam Cullen Re : Colonoscopy procedure for Jeet Rosales Subhash This procedure was performed on Friday, May 28, 2021. My impressions and recommendations are as follows: Impressions : - Non-thrombosed external hemorrhoids, non-thrombosed internal hemorrhoids and internal hemorrhoids that prolapse with straining, but spontaneously regress to the resting position (Grade II) found on digital rectal exam. - The entire examined colon is normal. - No specimens collected. Recommendations : - Discharge patient to home. - Resume previous diet. - Continue present medications. - Repeat colonoscopy is not recommended due to current age (66 years or older) for screening purposes. My findings are described in the full procedure note, which is enclosed. If I can be of further assistance, please feel free to contact me at Doctor phone number(s): Work: . Sincerely, Toribio Higgins MD 05/28/2021 9:49:17 AM This report has been signed electronically.
[2021-05-28 09:50] VITALS: BP 117/68; BP 137/68; PULSE 69; RESP 16; O2SAT 98
[2021-05-28 09:55] VITALS: BP 131/63; BP 137/68; PULSE 74; RESP 16; O2SAT 98
[2021-05-28 10:00] VITALS: BP 124/67; BP 137/68; PULSE 74; RESP 16; TEMP 36.6; O2SAT 97
[2021-05-28 10:35] VITALS: BP 137/68
== END 2021-05-28 10:38 ==
LOC: EN 07:35 → AC 07:36
PROVIDERS: PCP Family Medicine; Referring Provider Surgery; Visit Provider Surgery
PROC: 0DJD8ZZ Inspection of Lower Intestinal Tract, Via Natural or Artificial Opening Endoscopic (ICD-10-PCS; CPT 45378; principal; 2021-05-28 08:55)
DX: K29.50 Unspecified chronic gastritis without bleeding (principal); K64.1 Second degree hemorrhoids; K44.9 Diaphragmatic hernia without obstruction or gangrene; K31.7 Polyp of stomach and duodenum; K64.4 Residual hemorrhoidal skin tags; K21.00 Gastro-esophageal reflux disease with esophagitis, without bleeding; I25.10 Atherosclerotic heart disease of native coronary artery without angina pectoris; N40.0 Benign prostatic hyperplasia without lower urinary tract symptoms; I12.9 Hypertensive chronic kidney disease with stage 1 through stage 4 chronic kidney disease, or unspecified chronic kidney disease; E11.22 Type 2 diabetes mellitus with diabetic chronic kidney disease; N18.30 Chronic kidney disease, stage 3 unspecified; K21.9 Gastro-esophageal reflux disease without esophagitis; E78.5 Hyperlipidemia, unspecified; G47.33 Obstructive sleep apnea (adult) (pediatric); Z86.718 Personal history of other venous thrombosis and embolism; Z87.19 Personal history of other diseases of the digestive system; Z86.73 Personal history of transient ischemic attack (TIA), and cerebral infarction without residual deficits; Z79.4 Long term (current) use of insulin; Z79.82 Long term (current) use of aspirin; Z79.899 Other long term (current) drug therapy; Z87.891 Personal history of nicotine dependence
CPT/HCPCS: 43239; 45378; 82962; 87426; 88305; 88313; 88342; C9803; J7120; J2405

== ENCOUNTER → 2021-06-14 14:37 | Outpatient (CLI) | payer MEDICARE, OTHER, SELFPAY ==
--- NOTE | 2021-06-14 14:46 | CT_ITS ---
STUDY: CT ABDOMEN AND PELVIS WITHOUT CONTRAST REASON FOR EXAM: Male, 80 years old. Abdominal pain RADIATION DOSAGE (If Supplied By Facility): CTDIvol = ( 14.23 ) mGy, DLP = ( 718.07 ) mGycm TECHNIQUE: Transaxial images were obtained from the dome of the diaphragm to the symphysis pubis without oral contrast, and without intravenous contrast. Sagittal and coronal images were reconstructed. Individualized dose optimization techniques were used for this CT. COMPARISON: Comparison is made with prior study 04/21/2015. FINDINGS: The visualized lung bases are unremarkable. Coronary artery calcification. Normal liver. There are surgical clips in the gallbladder fossa consistent with a prior cholecystectomy. Normal spleen. Normal pancreas. Normal bilateral adrenal glands. Stable appearance of a 2 cm x 2.4 cm hypodense nodule in the anterior medial portion of the right kidney suggestive of a cyst. Minimal peripheral calcification is seen along its peripheral posterior wall. This is unchanged. Normal left kidney. There is a small hiatal hernia. Normal small intestine. Large amount of fecal material is seen in the right hemicolon. Scattered sigmoid diverticula. The appendix is visualized and appears normal. There is diffuse atherosclerotic calcification of the abdominal aorta, without a demonstrated aneurysm. Normal inferior vena cava. Normal retroperitoneum. Normal urinary bladder. There are prostatic calcifications. Normal abdominal wall. There are diffuse degenerative changes of the visualized lumbar spine. CT/Abdomen/Pel W ORAL Cont Only IMPRESSION: Stable examination. No acute abnormality is seen. Electronically Signed: Raj Perez MD at 15:28 EST , Service support ,
== END ==
PROVIDERS: PCP Family Medicine; Visit Provider Physician Assistant
DX: R10.9 Unspecified abdominal pain (principal)
CPT/HCPCS: 74176

== ENCOUNTER → 2021-08-04 15:08 | Outpatient (CLI) | payer MEDICARE, OTHER, SELFPAY ==
[2021-08-04 15:40] LABS: Basophil# 0.06 X10^3/uL; Basophil% 0.6 % (0-1); Eosinophil# 0.43 X10^3/uL; Eosinophils% 4.5 % (0-5); Hematocrit 39.6 % (40-54); Hemoglobin 13.5 g/dL (13.0-16.5); Mean Corp Hgb Conc 34.1 g/dL (32-36); Mean Corpuscular Hgb 28.2 pg (27.0-32.0); Mean Corpuscular Volume 82.7 fL (80-94); Mean Platelet Vol. 9.9 fl (6.2-12.0); Monocyte# 0.63 X10^3/uL; Monocyte% 6.6 % (0-10); NRBC Flagged by Analyzer 0 % (0-5); Neutrophil # 6.04 X10^3/uL (2.7-7.7); Platelet Count 221 K/mm3 (150-450); RBC Distribution Width CV 12.1 % (11.6-14.6); RBC Distribution Width SD 36.7 fl (35.1-43.9); Red Blood Count 4.79 M/mm3 (4.6-6.2); White Blood Count 9.6 K/mm3 (4.4-11.0)
[2021-08-04 15:55] LABS: BNP,B-Type NATRIURETIC PEPTIDE 44.9 pg/mL (0-100)
[2021-08-04 15:59] LABS: Anion Gap 6 (5-15); BUN 23 mg/dL (7-18); BUN/Creat Ratio 14.6 RATIO (10-20); Calcium,Total 8.8 mg/dL (8.5-10.1); Chloride 103 mmol/L (98-107); Creatinine, Serum 1.57 mg/dL (0.70-1.30); EST Glomerular Filtration Rate 46 mL/min (>60); Est Glom Filt Rate - Afr Amer 55 mL/min (>60); Glucose 202 mg/dL (74-106); Potassium 4.1 mmol/L (3.5-5.1); Sodium Level 136 mmol/L (136-145)
== END ==
PROVIDERS: PCP Family Medicine; Visit Provider Internal Medicine Cardiovascular Disease
DX: R06.02 Shortness of breath (principal)
CPT/HCPCS: 36415; 80048; 83880; 85025

== ENCOUNTER → 2021-12-13 | Outpatient (CLI) | payer MEDICARE, OTHER, SELFPAY ==
[2021-12-13 09:19] LABS: Protein, Urine (Random) 32.7 mg/dL (<11.9); Protein:Creat Ratio 264 mg/g CRE (0-200)
[2021-12-13 09:42] LABS: PTHIN 34.5 pg/mL (18.4-80.1)
[2021-12-13 09:47] LABS: Albumin, Serum 3.5 g/dL (3.2-5.0); BUN 26 mg/dL (7-18); BUN/Creat Ratio 18.4 RATIO (10-20); Calcium,Total 8.7 mg/dL (8.5-10.1); Chloride 108 mmol/L (98-107); Creatinine, Serum 1.41 mg/dL (0.70-1.30); EST Glomerular Filtration Rate 52 mL/min (>60); Est Glom Filt Rate - Afr Amer 62 mL/min (>60); Glucose 189 mg/dL (74-106); Potassium 4.2 mmol/L (3.5-5.1); Sodium Level 139 mmol/L (136-145)
== END | disposition home or self-care (01) ==
LOC: LAB 08:29
PROVIDERS: PCP Family Medicine; Referring Provider Internal Medicine Nephrology; Visit Provider Internal Medicine Nephrology
DX: N18.31 Chronic kidney disease, stage 3a (principal); E11.40 Type 2 diabetes mellitus with diabetic neuropathy, unspecified; E11.22 Type 2 diabetes mellitus with diabetic chronic kidney disease
CPT/HCPCS: 36415; 80069; 82570; 83970; 84156

== ENCOUNTER 2022-04-13 11:53 | Emergency (ER) | payer MEDICARE, OTHER, SELFPAY ==
[2022-04-13 11:54] VITALS: BP 150/58; PULSE 62; RESP 18; TEMP 37.1; O2SAT 98; BMI 27.8
[2022-04-13 12:10] VITALS: BMI 27.8
--- NOTE | 2022-04-13 12:56 | CT_ITS ---
STUDY: CT BRAIN WITHOUT CONTRAST REASON FOR EXAM: Male, 81 years old. Weakness. Dizziness and visual changes. RADIATION DOSAGE (If Supplied By Facility): CTDIvol = ( 47.06 ) mGy, DLP = ( 816.74 ) mGycm TECHNIQUE: Transaxial CT imaging of the brain was performed without administration of intravenous contrast material. Individualized dose optimization techniques were used for this CT. COMPARISON: Comparison is made with prior study dated 03/26/2020. FINDINGS: Normal soft tissue structures. Normal calvarium. There is mild cerebral atrophy with widening of the extra-axial spaces and ventricular dilatation. There are areas of decreased attenuation within the white matter tracts of the supratentorial brain, consistent with microvascular disease changes. Old lacunar infarct in the insular cortex of the right temporal lobe. Normal brainstem. Normal cerebellum. There is no intracranial hemorrhage. There are no findings of an acute ischemic infarction. Normal visualized paranasal sinuses. CT/Brain/Head without Contrast IMPRESSION: Chronic involutional changes of the brain. Electronically Signed: Raj Perez MD at 13:43 EDT ,
--- NOTE | 2022-04-13 12:57 | CT_ITS ---
STUDY: CT CERVICAL SPINE WITHOUT CONTRAST REASON FOR EXAM: Male, 81 years old. Cervical pain following a fall. RADIATION DOSAGE (If Supplied By Facility): CTDIvol = ( 19.73 ) mGy, DLP = ( 399.74 ) mGycm TECHNIQUE: High resolution transaxial imaging was performed without contrast material. Sagittal and coronal images were reconstructed. Individualized dose optimization techniques were used for this CT. COMPARISON: None FINDINGS: Normal craniovertebral junction. There are degenerative changes of the anterior atlantoaxial articulation. Normal odontoid process. There is straightening of the normal cervical lordosis. Normal vertebral bodies and posterior osseous elements. C2-3: Normal endplates. Normal disc height and morphology. Normal central canal and intervertebral neuroforamina. C3-4: Moderate degree of disc space narrowing and spondylosis. Uncovertebral arthrosis. Mild degree of left neural foraminal stenosis. C4-5: The disc spaces relatively well maintained. No evidence of a neural foraminal stenosis. C5-6: There is a marked degree of disc space narrowing with posterior spondylosis. Uncovertebral arthrosis. Mild degree of bilateral neural foraminal stenosis right greater than left. C6-7: Normal endplates. Normal disc height and morphology. Normal central canal and intervertebral neuroforamina. C7-T1: Normal endplates. Normal disc height and morphology. Normal central canal and intervertebral neuroforamina. Atherosclerotic plaque formation of the carotid bifurcations bilaterally. CT/Spine Cervical without Contras IMPRESSION: Multilevel degenerative changes, as described above. Electronically Signed: Raj Perez MD at 13:45 EDT ,
[2022-04-13 13:16] VITALS: BP 130/61; BP 134/90; BP 141/59; PULSE 56; PULSE 57; PULSE 68
[2022-04-13 13:18] LABS: Absolute Lymphocyte Count 1.82 X10^3/uL (0.83-4.51); Basophil# 0.06 X10^3/uL; Basophil% 0.6 % (0-1); Eosinophil# 0.36 X10^3/uL; Eosinophils% 3.6 % (0-5); Hematocrit 39.7 % (40-54); Hemoglobin 13.3 g/dL (13.0-16.5); Lymphocyte # 1.82 X10^3/ul (0.83-4.51); Lymphocyte % 18.1 % (19-41); Mean Corp Hgb Conc 33.5 g/dL (32-36); Mean Corpuscular Hgb 28.1 pg (27.0-32.0); Mean Corpuscular Volume 83.8 fL (80-94); Mean Platelet Vol. 10.1 fl (6.2-12.0); Monocyte% 7.9 % (0-10); NRBC Flagged by Analyzer 0 % (0-5); Neutrophil # 7.01 X10^3/uL (2.7-7.7); Neutrophil % 69.5 % (47-70); Platelet Count 249 K/mm3 (150-450); RBC Distribution Width CV 13.3 % (11.6-14.6); RBC Distribution Width SD 40.7 fl (35.1-43.9); Red Blood Count 4.74 M/mm3 (4.6-6.2); White Blood Count 10.1 K/mm3 (4.4-11.0)
[2022-04-13 13:34] LABS: AST(SGOT) 22 U/L (15-37); Alanine Aminotransfer ALT/SGPT 34 U/L (16-61); Albumin, Serum 3.6 g/dL (3.2-5.0); Alkaline Phosphatase 111 U/L (45-117); Anion Gap 7 (5-15); BUN 23 mg/dL (7-18); BUN/Creat Ratio 12.9 RATIO (10-20); Chloride 105 mmol/L (98-107); Creatinine, Serum 1.78 mg/dL (0.70-1.30); EST Glomerular Filtration Rate 39 mL/min (>60); Est Glom Filt Rate - Afr Amer 48 mL/min (>60); Estimated Creatinine Clearance 33.65 ml/min; Globulin 3.5 g/dL (2.2-4.2); Glucose 179 mg/dL (74-106); Lipase 252 U/L (73-393); Potassium 4.8 mmol/L (3.5-5.1); Protein, Total 7.1 g/dL (6.4-8.2); Sodium Level 138 mmol/L (136-145); Troponin-I HS 7 pg/mL (3.0-78.0)
--- NOTE | 2022-04-13 13:35 | RAD_ITS ---
STUDY: X-RAY CHEST REASON FOR EXAM: Male, 81 years old. Chest pain TECHNIQUE: Single AP portable view of the chest. COMPARISON: Comparison is made with prior study dated 03/26/2020. FINDINGS: EKG electrodes are seen. The lungs are clear and expanded. There is no demonstrated pleural abnormality. Normal size heart. Normal mediastinum and ramya. Normal visualized pulmonary arteries. There is atherosclerotic tortuosity of the aortic arch and descending thoracic aorta. There are degenerative changes of the visualized thoracic spine. Normal visualized ribs, clavicles, and shoulders. There is no demonstrated abnormality of the visualized soft tissue structures of the upper abdomen. RAD/Chest 1 View (Portable) IMPRESSION: No acute abnormality is seen. The lungs are clear. Electronically Signed: Raj Perez MD at 13:46 EDT ,
[2022-04-13 14:06] VITALS: PULSE 56; RESP 14; O2SAT 96
[2022-04-13 15:16] LABS: Mucous, Urine 0 SEEN /hpf (<or=2+); Red Blood Cells-Urine 0 SEEN /hpf (0-5); Squamous Epithelial Cells - UA 0 SEEN /hpf (0-5); White Blood Cells 0 SEEN /hpf (0-5)
[2022-04-13 15:24] LABS: Color, Urine Yellow (Yellow); Glucose, Dipstick Normal (Normal); Ketone-Dipstick Negative (Negative); Leukocyte Esterase-Dipstick Negative /ul (Negative); Nitrite-Dipstick Negative (Negative); Occult Blood-Urine Negative /ul (Negative); Protein-Dipstick Negative (Negative); Specific Gravity, Urine 1.005 (1.002-1.030); Urine Bilirubin Dipstick Negative (Negative); Urine Clarity Clear (Clear); Urine Urobilinogen Normal (Normal)
--- NOTE | 2022-04-13 15:32 | EDS_ITS ---
HPI History of Present Illness Chief Complaint: Neuro S/Sx Informant: patient Narrative Narrative: Patient is a 81-year-old male with history of hypertension, CKD 3, hyperlipidemia, coronary artery stent and dizziness presenting with multiple complaints. Patient states the past 4 to 5 days he has had numbness and tingling in the back of his head. Its more on the right side. Said sometimes his vision does not feel like his vision is focusing. This morning he felt a little nauseous. He felt like he might pass out this morning. He states he felt clammy yesterday. 2 nights ago he had about a 4 to 5-second episode of sharp chest pain. He has been belching more frequently. Today when he was at the grocery store he felt like he was going to pass out and his legs felt like rubber. He called his primary care doctor who felt that he be better served coming to the ER initially for evaluation to rule out any emergencies. Patient states when he lays down he feels fine. He currently has no complaints. He does, that about a week ago he was working on a car and was at an odd angle with his right arm and maybe that is why his neck in shoulder hurting in that area. [facility] Medical History Anxiety Arthritis Atherosclerotic heart disease of [place] coronary artery without angina pectoris BPH (benign prostatic hyperplasia) Cardiology follow-up encounter Chronic cough CKD (chronic kidney disease) stage 3, GFR 30-59 ml/min Diabetes DVT (deep venous thrombosis) Dysmetabolic syndrome X Easy bruising Essential (primary) hypertension Excessive bleeding Former smoker Gastric reflux GERD (gastroesophageal reflux disease) High cholesterol History of DVT (deep vein thrombosis) History of edema History of IBS History of intestinal obstruction History of pain when walking History of stress test Hyperlipidemia Hypertension Injury of head and neck Insulin dependent diabetes mellitus Left leg pain Neuralgia Obstructive sleep apnea Panic attack Rosacea Swelling of left lower extremity TIA (transient ischemic attack) Type II diabetes mellitus Wears dentures Wears glasses Wears hearing aid Home Medications aspirin 81 mg tablet,delayed release 81 mg PO DAILY@0800 heart health 04/14/14 [History Last Taken 04/13/22] amlodipine 10 mg tablet 10 mg PO DAILY blood pressure 09/05/17 [History Last Taken 04/13/22] cyanocobalamin (vitamin B-12) 1,000 mcg tablet (Vitamin B-12) 1,000 mcg PO DAILY vitamin 09/05/17 [History Last Taken 04/13/22] clonazepam 0.5 mg tablet 0.5 mg PO .SEE anxiety 09/07/17 [History Last Taken 04/12/22] dicyclomine 10 mg capsule 10 mg PO TID ibs 01/30/20 [History Last Taken 04/13/22] nitroglycerin 0.4 mg sublingual tablet 0.4 mg sublingual Q5-15M PRN pain #25 tabs 11/09/20 [Rx Last Taken Unknown] finasteride 5 mg tablet 5 mg PO DAILY prostate 01/28/21 [History Last Taken 04/12/22] pantoprazole 40 mg tablet,delayed release 40 mg PO BID 05/25/21 [History Last Taken 04/13/22] clopidogrel 75 mg tablet 75 mg PO DAILY #90 tabs 10/25/21 [Rx Last Taken 04/13/22] atorvastatin 80 mg tablet 80 mg PO DAILY 01/27/22 [History Last Taken 04/12/22] insulin glargine 100 unit/mL subcutaneous solution 26 unit subcut DAILY dm 01/27/22 [History Last Taken 04/13/22] cholecalciferol (vitamin D3) 50 mcg (2,000 unit) capsule 50 mcg PO DINNER 04/13/22 [History Last Taken 04/12/22] insulin lispro 100 unit/mL subcutaneous pen 8 unit subcut TIDCM dm 04/13/22 [History Last Taken 04/13/22] uwyhnuci-twk-qrqtw acid 300 mcg-lycopene 600 mcg-lutein 300 mcg tablet (Centrum Silver Men) 1 tab PO DAILY supplement 04/13/22 [History Last Taken 04/13/22] simethicone 80 mg chewable tablet 80 mg PO DAILY PRN PRN gas relief 04/13/22 [History Last Taken Unknown] sucralfate 1 gram tablet 1 g PO TID stomach 04/13/22 [History Last Taken 04/13/22] valsartan 320 mg tablet 320 mg PO DAILY heart 04/13/22 [History Last Taken 04/13/22] Allergy/AdvReac Type Severity Reaction Status Date / Time sulfamethoxazole Allergy Severe Shortness Verified 04/13/22 11:57 [From Bactrim] of breath trimethoprim [From Bactrim] Allergy Severe Shortness Verified 04/13/22 11:57 of breath acyclovir Allergy Shortness Verified 04/13/22 11:57 of breath cephalexin [From Keflex] Allergy Other Verified 04/13/22 11:57 cetirizine HCl [From Zyrtec] Allergy Rash Verified 04/13/22 11:57 doxepin [Doxepin] Allergy Other Verified 04/13/22 11:57 fluoxetine [From Prozac] Allergy Other Verified 04/13/22 11:57 fluoxetine HCl [From Prozac] Allergy Other Verified 04/13/22 11:57 hydromorphone HCl Allergy Other Verified 04/13/22 11:57 [From Dilaudid] levofloxacin [From Levaquin] Allergy Other Verified 04/13/22 11:57 losartan [Losartan] Allergy Other Verified 04/13/22 11:57 ramipril Allergy Other Verified 04/13/22 11:57 tamsulosin [From Flomax] Allergy Other Verified 04/13/22 11:57 venlafaxine HCl Allergy Other Verified 04/13/22 11:57 [From Effexor] alfuzosin AdvReac Abd Verified 04/13/22 11:57 cramps/diarrhea fluvoxamine maleate AdvReac Other Verified 04/13/22 11:57 [From Luvox] gemfibrozil [From Lopid] AdvReac Unknown Verified 04/13/22 11:57 metformin AdvReac Other Verified 04/13/22 11:57 metoprolol AdvReac Other Verified 04/13/22 11:57 mold AdvReac NEEDS Verified 04/13/22 11:57 FOLLOW-UP nefazodone HCl [From Serzone] AdvReac Nausea/Vom/ Verified 04/13/22 11:57 Diarrhea nortriptyline [Nortriptyline] AdvReac Other Verified 04/13/22 11:57 trazodone AdvReac Nausea/Vom/ Verified 04/13/22 11:57 Diarrhea Family History Father , age 79 of [place] S/P CABG (coronary artery bypass graft), Onset Age: 74 CAD (coronary artery disease) Myocardial infarction Sudden cardiac Mother , age not mentioned, sudden cardiac Diabetes CAD (coronary artery disease) Sudden cardiac Myocardial infarction Surgical History History of appendectomy History of cholecystectomy History of coronary artery stent placement (05/31/11) History of herniorrhaphy History of left heart catheterization (10/22/11) Social History Smoking Status: Former smoker ROS ROS ED Constitutional Constitutional ED: Reports sweats; Denies chills or fever(s) Eyes Eyes: Reports change in vision; Denies blurry vision or diplopia ENT ENT ED: Denies rhinorrhea or sore throat Cardiovascular Cardiovascular: Reports chest pain; Denies palpitations Respiratory/Chest Respiratory/Chest: Denies cough or dyspnea Gastrointestinal Gastrointestinal: Reports nausea; Denies abdominal pain, constipation, diarrhea or vomiting Genitourinary Genitourinary ED: Denies dysuria, hematuria or urinary frequency Musculoskeletal Musculoskeletal: Reports neck pain; Denies arthralgias or myalgias Integumentary Denies Abrasions or rash Neurologic Neurologic: Reports paresthesias; Denies headache(s) or weakness Psychiatric Psychiatric: Denies anxiety Hematologic/Lymphatic Hematologic/Lymphatic: Denies easy bleeding or easy bruising EXAM Physical Exam Const Vital Signs: 04/13/22 11:54 04/13/22 13:16 04/13/22 14:06 Temperature 98.7 F Temperature Source Temporal Pulse Rate 62 56 L Pulse Rate [Lying] 57 L Pulse Rate [Sitting (for 1 minute prior to obtaining)] 56 L Pulse Rate [Standing (for 1 minute prior to obtaining)] 68 Respiratory Rate 18 14 Blood Pressure 150/58 H Blood Pressure [Lying] 134/90 H Blood Pressure [Sitting (for 1 minute prior to obtaining)] 130/61 H Blood Pressure [Standing (for 1 minute prior to obtaining)] 141/59 H Blood Pressure Mean 88 Blood Pressure Mean [Lying] 104 Blood Pressure Mean [Sitting (for 1 minute prior to obtaining)] 84 Blood Pressure Mean [Standing (for 1 minute prior to obtaining)] 86 Pulse Ox 98 96 Oxygen Delivery Method Room Air Positive well nourished and well developed General Appearance ED: well developed and NAD HEENT Reports moist mucous membranes Negative for trauma Eyes PERRL and EOMs intact bilaterally Neck supple and no JVD Neck Narrative: No midline tenderness. Some mild right lateral tenderness to palpation Chest Wall inspection of chest normal and palpation of chest normal Resp normal respiratory effort and clear to auscultation bilaterally Cardio regular rate, regular rhythm and no murmurs GI normal to inspection, nondistended, normoactive bowel sounds and non-tender Extremity normal to inspection General Extremety ED: Negative for edema or tenderness General Extremity: Negative for edema Neuro oriented x3, CN's II-XII intact bilaterally and no sensory deficits noted Neuro Narrative: Normal coordination. NIH equals 0 Motor Exam: strength 5/5 throughout; Negative for general weakness Psych mental status grossly normal Skin no rashes or lesions noted MDM MDM MDM Narrative Medical decision making narrative: Patient is evaluated for multiple complaints including numbness on the back of his head, nausea and intermittent chest pain. Patient appears nontoxic in no acute distress. Vital signs are significant for only mild hypertension. Orthostatics are negative. Head CT, C-spine, CBC and high-sensitivity troponin are largely unremarkable. Creatinine is mildly elevated at 1.78 however this ap pears to be near his baseline. Urinalysis is normal with no signs of infection. Chest x-ray attempted by myself as well as radiology does not show any acute process. Patient does not have any acute ischemic EKG changes and has had since her troponin is 7. I do not think this is ACS. Patient is stable with ambulation in the ER. Will be discharged home to follow-up with primary care doctor. Not exactly sure what caused his symptoms but I do think he stable for outpatient follow-up and does not require admission at this time. He does comment that he is been having a little bit of neck and shoulder pain since working on car a week ago at an awkward angle. Is possible he has some muscle skeletal pain that is causing this numbness and discomfort in the back of his scalp. He is informed of this. Lab Data Attestation: I reviewed the patient's lab results. Labs: Laboratory Results - last 24 hr 04/13/22 04/13/22 04/13/22 12:57 12:57 15:12 WBC 10.1 RBC 4.74 Hgb 13.3 Hct 39.7 L MCV 83.8 MCH 28.1 MCHC 33.5 RDW Std Deviation 40.7 RDW Coeff of Cristobal 13.3 Plt Count 249 MPV 10.1 Immature Gran % (Auto) 0.300 Neut % (Auto) 69.5 Lymph % (Auto) 18.1 L [place] % (Auto) 7.9 Eos % (Auto) 3.6 Baso % (Auto) 0.6 Absolute Neuts (auto) 7.0 Absolute Lymphs (auto) 1.82 Nucleated RBC % 0 Sodium 138 Potassium 4.8 Chloride 105 Carbon Dioxide 26.0 Anion Gap 7 BUN 23 H Creatinine 1.78 H Estim Creat Clear Calc 33.65 Est GFR (MDRD) Af Amer 48 L Est GFR (MDRD) Non-Af 39 L BUN/Creatinine Ratio 12.9 Glucose 179 H Calcium 9.0 Total Bilirubin 0.30 AST 22 ALT 34 Alkaline Phosphatase 111 Troponin I High Sens 7 Total Protein 7.1 Albumin 3.6 Globulin 3.5 Albumin/Globulin Ratio 1.0 Lipase 252 Urine Color Yellow Urine Clarity Clear Urine pH 6.0 Ur Specific [place] 1.005 Urine Protein Negative Urine Glucose (UA) Normal Urine Ketones Negative Urine Occult Blood Negative Urine Nitrite Negative Urine Bilirubin Negative Urine Urobilinogen Normal Ur Leukocyte Esterase Negative Urine RBC 0 SEEN Urine WBC 0 SEEN Ur Squamous Epith Cells 0 SEEN Urine Bacteria RARE Urine Mucus 0 SEEN Radiography Diagnostic Testing: Clinical Impression(s) from Imaging Studies Brain CT 04/13/22 12:56 IMPRESSION: Chronic involutional changes of the brain. Electronically Signed: Raj Perez MD at 13:43 EDT Reading Location ID and State: [address] [place] [address] , Service support , Cervical Spine CT 04/13/22 12:57 IMPRESSION: Multilevel degenerative changes, as described above. Electronically Signed: Raj Perez MD at 13:45 EDT , Chest X-Ray 04/13/22 13:35 IMPRESSION: No acute abnormality is seen. The lungs are clear. Electronically Signed: Raj Perez MD at 13:46 EDT , Rhythm Strip Rhythm Strip: Sinus bradycardia Rate: 52 Ectopy: None EKG Initial EKG: Attestation: I personally reviewed and interpreted this EKG as follows: Interpretation: Sinus Bradycardia Comments: Sinus bradycardia at a rate of 52 with sinus arrhythmia Normal axis Normal intervals Normal ST segments Prior: Unchanged Discharge Plan Triage Chief Complaint: Neuro S/Sx ED Provider: Gloria Langley Dx/Rx/DC Orders Clinical Impression: Dizziness, Fatigue, Weakness Instructions: ED Weakness (Uncertain Cause) Prescriptions: No Action amlodipine 10 mg tablet 10 mg PO DAILY cyanocobalamin (vitamin B-12) [Vitamin B-12] 1,000 mcg tablet 1,000 mcg PO DAILY dicyclomine 10 mg capsule 10 mg PO TID finasteride 5 mg tablet 5 mg PO DAILY atorvastatin 80 mg tablet 80 mg PO DAILY aspirin 81 MG tablet 81 mg PO DAILY@0800 Label Comments: anticoagulation clonazepam 0.5 MG tablet 0.5 mg PO .SEE Label Comments: ANXIETY, TAKE 0.5 tab ON TU & FR AM, EVERY NIGHT EXCEPT MONDAY pantoprazole 40 mg tablet,delayed release (DR/EC) 40 mg PO BID insulin glargine 100 unit/mL solution 26 unit SC DAILY valsartan 320 mg tablet 320 mg PO DAILY Label Comments: take 1 tablet by mouth once daily simethicone 80 mg tablet,chewable 80 mg PO DAILY PRN PRN (Reason: gas relief) Label Comments: CHEW AND SWALLOW 1 tablet by mouth every 6 hours if needed insulin lispro [Humalog Pen] 100 unit/mL Insulin Pen 8 unit SUBCUT TIDCM cholecalciferol (vitamin D3) 50 mcg (2,000 unit) Capsule 50 mcg PO DINNER Centrum Silver Men 300-600-300 mcg Tablet 1 tab PO DAILY sucralfate 1 gram tablet 1 g PO TID nitroglycerin 0.4 mg tablet, sublingual 0.4 mg SUBLINGUAL Q5-15M PRN (Reason: pain) Qty: 25 3RF clopidogrel 75 mg tablet 75 mg PO DAILY Qty: 90 3RF Primary Care Provider: Shivam Cullen Referrals: Shivam Cullen MD [Primary Care Provider] - Activity Restrictions/Additional Instructions: Your work-up is normal today. The cause of your generalized weakness is not clear. Patient is drinking plenty of fluids. There is no obvious infection or stroke today. Disposition Disposition: Home, Self Care
--- NOTE | 2022-04-13 15:38 | EKG12_ITS ---
Test Reason : CHEST PAIN Blood Pressure : / mmHG Vent. Rate : 052 BPM Atrial Rate : 053 BPM P-R Int : 142 ms QRS Dur : 078 ms QT Int : 452 ms P-R-T Axes : 000 019 031 degrees QTc Int : 420 ms Sinus bradycardia with sinus arrhythmia Otherwise normal ECG Confirmed by RIA MARSHALL, PEYMAN ([id number]), food editor TURNER EVANS ([id number]) on 04/15/2022 11:52:20 AM Referred By: RICARDO Confirmed By:DONI ROLLINS MD
[2022-04-13 15:41] LABS: Bacteria RARE /hpf (None Seen)
[2022-04-13 16:07] VITALS: BP 139/88; PULSE 72; RESP 15; O2SAT 98
== END 2022-04-13 16:10 | disposition home or self-care (01) ==
PROVIDERS: Emergency Provider Emergency Medicine; PCP Family Medicine; Visit Provider Emergency Medicine
DX: R42 Dizziness and giddiness (principal); E11.22 Type 2 diabetes mellitus with diabetic chronic kidney disease; Z79.4 Long term (current) use of insulin; N18.30 Chronic kidney disease, stage 3 unspecified; R53.1 Weakness; M25.519 Pain in unspecified shoulder; E78.5 Hyperlipidemia, unspecified; R07.9 Chest pain, unspecified; E78.00 Pure hypercholesterolemia, unspecified; I12.9 Hypertensive chronic kidney disease with stage 1 through stage 4 chronic kidney disease, or unspecified chronic kidney disease; R14.2 Eructation; R53.83 Other fatigue; Z87.891 Personal history of nicotine dependence; I25.10 Atherosclerotic heart disease of native coronary artery without angina pectoris; G47.33 Obstructive sleep apnea (adult) (pediatric); Z95.5 Presence of coronary angioplasty implant and graft
CPT/HCPCS: 70450; 71045; 72125; 80053; 81001; 83690; 84484; 85025; 87811; 93005; 99285; J7030; A4216

== ENCOUNTER → 2022-04-25 | Outpatient (CLI) | payer MEDICARE, OTHER, SELFPAY ==
--- NOTE | 2022-04-25 18:54 | STRESSREP_ITS ---
Stress Test Report Exercise myocardial perfusion stress test. 81-year-old male with a history of chest pain. Stress protocol: Resting EKG demonstrates normal sinus rhythm with a rate of 58 bpm normal intervals are noted resting blood pressure is 138/66 mmHg. The patient exercised according to the regular Phuc protocol for total duration of 7 minutes and 31 seconds. Patient completed 1 minute and 31 seconds into stage III of the Phuc protocol the maximum heart rate attained was 131 bpm which was 92% of max impacted heart rate the maximum workload was 10.1 metabolic equivalents. At rest there were no ST or T wave changes noted suggest ischemia and at peak exercise upsloping ST changes were noted with did not meet the criteria for ischemia. No clinical angina was noted the peak blood pressure was 172/58 mmHg rate-pressure part was 22,100. Myocardial perfusion protocol. 11.6 mCi of technetium 99m sestamibi was injected at rest. The patient exe rcised according to regular Phuc protocol for 7-1/2 minutes and at peak exercise 33.4 mCi of technetium 99m sestamibi was injected stress images were obtained stress and rest images were reconstructed in comparing the short axis vertical long and horizontal long axis. Gated images were also obtained. Perfusion SPECT analysis: Review of the stress images demonstrate normal uptake of tracer noted in all areas of the myocardium. The resting images similar demonstrate normal uptake of tracer noted in all areas of the myocardium. No reversibility is noted to suggest ischemia no previous infarct is noted. Gated SPECT analysis: The gated ejection fraction is 64%. Conclusion: Normal exercise myocardial perfusion stress test at a moderate workload. Preserved ejection fraction.
== END | disposition home or self-care (01) ==
PROVIDERS: PCP Family Medicine; Referring Provider Internal Medicine Cardiovascular Disease; Visit Provider Internal Medicine Cardiovascular Disease
DX: R07.9 Chest pain, unspecified (principal); R53.83 Other fatigue; R42 Dizziness and giddiness; I25.10 Atherosclerotic heart disease of native coronary artery without angina pectoris; Z95.5 Presence of coronary angioplasty implant and graft
CPT/HCPCS: 78452; 93017; A9500; A4216

== ENCOUNTER → 2022-09-20 | Outpatient (CLI) | payer MEDICARE, OTHER, SELFPAY ==
[2022-09-20 08:48] LABS: Hematocrit 40.6 % (40-54); Hemoglobin 13.4 g/dL (13.0-16.5); Mean Corpuscular Hgb 28.2 pg (27.0-32.0); Mean Corpuscular Volume 85.3 fL (80-94); Mean Platelet Vol. 10.1 fl (6.2-12.0); Platelet Count 227 K/mm3 (150-450); RBC Distribution Width CV 12.9 % (11.6-14.6); RBC Distribution Width SD 39.9 fl (35.1-43.9); Red Blood Count 4.76 M/mm3 (4.6-6.2); White Blood Count 8.2 K/mm3 (4.4-11.0)
[2022-09-20 09:14] LABS: Albumin, Serum 3.5 g/dL (3.2-5.0); BUN 24 mg/dL (7-18); BUN/Creat Ratio 15.1 RATIO (10-20); Calcium,Total 8.7 mg/dL (8.5-10.1); Chloride 110 mmol/L (98-107); Creatinine, Serum 1.59 mg/dL (0.70-1.30); EST Glomerular Filtration Rate 45 mL/min (>60); Est Glom Filt Rate - Afr Amer 54 mL/min (>60); Glucose 204 mg/dL (74-106); Phosphorus 2.4 mg/dL (2.5-4.9); Potassium 4.4 mmol/L (3.5-5.1); Sodium Level 140 mmol/L (136-145)
== END | disposition home or self-care (01) ==
LOC: LAB.FUTURE 08:01 → LAB 08:05
PROVIDERS: PCP Family Medicine; Referring Provider Internal Medicine Nephrology; Visit Provider Internal Medicine Nephrology
DX: N18.31 Chronic kidney disease, stage 3a (principal)
CPT/HCPCS: 36415; 80069; 83970; 85027

== ENCOUNTER → 2023-02-13 | Outpatient (CLI) | payer MEDICARE, OTHER, SELFPAY ==
[2023-02-13 13:12] LABS: Troponin-I HS 6 pg/mL (3.0-78.0)
[2023-02-13 13:15] LABS: BNP,B-Type NATRIURETIC PEPTIDE 36.4 pg/mL (0-100)
== END | disposition home or self-care (01) ==
LOC: LABSPEC 12:45
PROVIDERS: PCP Family Medicine; Referring Provider Nurse Practitioner Family; Visit Provider Nurse Practitioner Family
DX: R06.02 Shortness of breath (principal)
CPT/HCPCS: 83880; 84484

== ENCOUNTER → 2023-06-13 | Outpatient (CLI) | payer MEDICARE, OTHER, SELFPAY ==
[2023-06-13 08:15] LABS: Hematocrit 40.7 % (40-54); Hemoglobin 13.5 g/dL (13.0-16.5); Mean Corp Hgb Conc 33.2 g/dL (32-36); Mean Corpuscular Hgb 28.3 pg (27.0-32.0); Mean Corpuscular Volume 85.3 fL (80-94); Mean Platelet Vol. 9.8 fl (6.2-12.0); Platelet Count 213 K/mm3 (150-450); RBC Distribution Width CV 12.5 % (11.6-14.6); RBC Distribution Width SD 38.7 fl (35.1-43.9); Red Blood Count 4.77 M/mm3 (4.6-6.2); White Blood Count 8.1 K/mm3 (4.4-11.0)
[2023-06-13 08:33] LABS: Protein, Urine (Random) 22.2 mg/dL (<11.9); Protein:Creat Ratio 216 mg/g CRE (0-200)
[2023-06-13 08:40] LABS: Albumin, Serum 3.6 g/dL (3.2-5.0); BUN 21 mg/dL (7-18); BUN/Creat Ratio 12.9 RATIO (10-20); Calcium,Total 8.5 mg/dL (8.5-10.1); Chloride 108 mmol/L (98-107); Creatinine, Serum 1.63 mg/dL (0.70-1.30); EST Glomerular Filtration Rate 43 mL/min (>60); Est Glom Filt Rate - Afr Amer 53 mL/min (>60); Glucose 161 mg/dL (74-106); Phosphorus 3.6 mg/dL (2.5-4.9); Potassium 4.1 mmol/L (3.5-5.1); Sodium Level 139 mmol/L (136-145)
== END | disposition home or self-care (01) ==
LOC: LAB 07:59
PROVIDERS: PCP Family Medicine; Referring Provider Internal Medicine Nephrology; Visit Provider Internal Medicine Nephrology
DX: N18.31 Chronic kidney disease, stage 3a (principal); E11.22 Type 2 diabetes mellitus with diabetic chronic kidney disease
CPT/HCPCS: 36415; 80069; 82570; 84156; 85027

== ENCOUNTER → 2023-07-26 | Outpatient (CLI) | payer MEDICARE, OTHER, SELFPAY ==
--- NOTE | 2023-07-26 08:43 | US_ITS ---
STUDY: SCROTUM ULTRASOUND REASON FOR EXAM: Male, 82 years old. Testicular swelling TECHNIQUE: Ultrasound evaluation of the scrotum was performed with color Doppler and static garcía-scale imaging. COMPARISON: None. FINDINGS: RIGHT TESTICLE INTRATESTICULAR: There is a normal size of the right testicle. The right testicle measures 4.5 cm x 3 cm x 2.8 cm. There is a homogenous echotexture. There is normal arterial and normal venous vascularity. There is no demonstrated right testicular mass or cyst. EXTRATESTICULAR: The epididymis is normal in size. The epididymis head measures 0.8 cm x 1.2 cm x 1 cm. There is normal vascularity of the epididymis. There is a well-defined cystic structure within the epididymis, without internal echoes, consistent with an epididymal cyst. This measures 7 mm x 7 mm x 6 mm. There is no demonstrated hydrocele. There is no demonstrated varicocele. There is no demonstrated extratesticular mass or cyst. LEFT TESTICLE INTRATESTICULAR: There is a normal size of the left testicle. The left testicle measures 4.4 cm x 2.8 cm x 2.8 cm. There is a homogenous echotexture. There is normal arterial and normal venous vascularity. There is no demonstrated left testicular mass or cyst. EXTRATESTICULAR: The epididymis is normal in size. The epididymis head measures 0.8 cm x 0.8 cm x 0.9 cm. There is normal vascularity of the epididymis. There is a well-defined cystic structure within the epididymis, without internal echoes, consistent with an epididymal cyst. This measures 5 mm x 5 mm x 6 mm. There is a large hydrocele. There is no demonstrated varicocele. There is no demonstrated extratesticular mass or cyst. US/Testicular with Arterial Flow IMPRESSION: Large left hydrocele. Small bilateral epididymal cysts. Electronically Signed: Raj Peerz MD at 14:50 EST ,
--- NOTE | 2023-07-26 08:50 | CT_ITS ---
STUDY: CT ABDOMEN AND PELVIS WITHOUT CONTRAST REASON FOR EXAM: Male, 82 years old. 2 month history of lower abdominal pain. Diarrhea. RADIATION DOSAGE (If Supplied By Facility): CTDIvol = ( 10.93 ) mGy, DLP = ( 573.37 ) mGycm TECHNIQUE: Transaxial images were obtained from the dome of the diaphragm to the symphysis pubis without oral contrast, and without intravenous contrast. Sagittal and coronal images were reconstructed. Individualized dose optimization techniques were used for this CT. COMPARISON: Comparison is made with prior study dated June 14, 2021. FINDINGS: The visualized lung bases are unremarkable. Coronary artery calcification. Normal liver. There are surgical clips in the gallbladder fossa consistent with a prior cholecystectomy. Normal spleen. Normal pancreas. Normal bilateral adrenal glands. Stable 1.5 cm hypodense nodule in the upper pole of the right kidney suggestive of a cyst. Normal left kidney. There is a small hiatal hernia. Normal small intestine. Moderate amount of fecal material is seen in the colon. The patient is status post appendectomy. There is diffuse atherosclerotic calcification of the abdominal aorta and its major visceral branches, without a demonstrated aneurysm. Normal inferior vena cava. Normal retroperitoneum. Normal urinary bladder. There are prostatic calcifications. Normal abdominal wall. There are degenerative changes of the visualized lumbar spine. CT/Abdomen/Pel W ORAL Cont Only IMPRESSION: Moderate amount of fecal material is seen in the colon. Stable examination. Electronically Signed: Raj Perez MD at 14:10 EST ,
== END | disposition home or self-care (01) ==
PROVIDERS: PCP Family Medicine; Referring Provider Surgery; Visit Provider Surgery
DX: N50.89 Other specified disorders of the male genital organs (principal); R10.9 Unspecified abdominal pain
CPT/HCPCS: 74176; 76870; 93976

== ENCOUNTER → 2023-09-20 | Outpatient (CLI) | payer MEDICARE, OTHER, SELFPAY ==
[2023-09-20 12:54] LABS: Erythrocyte Sedimentation Rate 7 mm/hr (0-20)
[2023-09-20 13:04] LABS: CRP < 2.90 mg/L (0.0-3.0); Lipase 54 U/L (13-75)
== END | disposition home or self-care (01) ==
LOC: LABSPEC 12:23
PROVIDERS: PCP Family Medicine; Referring Provider Family Medicine; Visit Provider Family Medicine
DX: R10.31 Right lower quadrant pain (principal)
CPT/HCPCS: 83690; 85652; 86140

== ENCOUNTER 2023-10-10 09:04 | Outpatient (CLI) | payer MEDICARE, OTHER, SELFPAY ==
[2023-10-10 09:28] LABS: Hematocrit 43.8 % (40-54); Hemoglobin 14.4 g/dL (13.0-16.5); Mean Corp Hgb Conc 32.9 g/dL (32-36); Mean Corpuscular Hgb 27.7 pg (27.0-32.0); Mean Corpuscular Volume 84.2 fL (80-94); Mean Platelet Vol. 9.8 fl (6.2-12.0); Platelet Count 231 K/mm3 (150-450); RBC Distribution Width CV 12.7 % (11.6-14.6); RBC Distribution Width SD 38.6 fl (35.1-43.9); White Blood Count 11.8 K/mm3 (4.4-11.0)
[2023-10-10 10:06] LABS: Anion Gap 6 (5-15); BUN 18 mg/dL (7-18); BUN/Creat Ratio 10.4 RATIO (10-20); Calcium,Total 9.4 mg/dL (8.5-10.1); Chloride 107 mmol/L (98-107); Creatinine, Serum 1.73 mg/dL (0.70-1.30); EST Glomerular Filtration Rate 41 mL/min (>60); Est Glom Filt Rate - Afr Amer 49 mL/min (>60); Glucose 197 mg/dL (74-106); Potassium 4.5 mmol/L (3.5-5.1); Sodium Level 140 mmol/L (136-145)
== END 2023-10-10 23:59 | disposition home or self-care (01) ==
LOC: LAB 09:07
PROVIDERS: PCP Family Medicine; Referring Provider Urology; Visit Provider Urology
DX: Z01.812 Encounter for preprocedural laboratory examination (principal); R10.9 Unspecified abdominal pain
CPT/HCPCS: 36415; 80048; 85027

== ENCOUNTER → 2023-11-15 | Outpatient (CLI) | payer MEDICARE, OTHER, SELFPAY ==
--- NOTE | 2023-11-15 10:53 | ECHOD_ITS ---
Reason For Study: SHORTNESS OF BREATH Procedure This was a 2D Doppler, Color Flow transthoracic echocardiogram. Exam performed in department. Left Ventricle Normal LV size. Mild concentric left ventricular hypertrophy. Left ventricular systolic function is normal. The estimated ejection fraction is 65 %. Stage 1 diastolic dysfunction. No regional wall motion abnormalities noted. Right Ventricle Normal RV size. Normal systolic function. Atria Normal left atrium. Normal right atrium. Mitral Valve Normal mitral valve. Tricuspid Valve Normal tricuspid valve. Aortic Valve Trisinus/trileaflet aortic valve. Pulmonic Valve Normal pulmonic valve. Great Vessels Normal aortic root. The pulmonary artery is normal size. Inferior vena cava collapse with respiration. Pericardium/Pleural No pericardial effusion. MMode/2D Measurements & Calculations LVIDd: 4.6 cm IVSd: 1.2 cm LVOT diam: 2.0 cm LVIDs: 2.6 cm LVPWd: 1.3 cm LVOT area: 3.2 cm2 RVDd: 4.0 cm FS: 42.8 % Ao root diam: 3.6 cm LAV(MOD-bp): 49.1 ml LVAd ap4: 28.9 cm2 LAV(MOD-bp) Indexed: 24.6 ml/m2 LVLd ap4: 7.8 cm LAV(MOD-sp2): 51.9 ml EDV(MOD-sp4): 86.6 ml LAV(MOD-sp4): 40.6 ml EDV(sp4-el): 90.5 ml LVAs ap4: 14.9 cm2 LVLs ap4: 6.0 cm ESV(MOD-sp4): 31.2 ml ESV(sp4-el): 31.4 ml EF(MOD-sp4): 63.9 % EF(sp4-el): 65.3 % LVAd ap2: 27.4 cm2 SV(MOD-sp4): 55.4 ml SV(MOD-sp2): 41.6 ml LVLd ap2: 8.3 cm EDV(MOD-sp2): 74.5 ml EDV(sp2-el): 76.2 ml LVAs ap2: 15.7 cm2 LVLs ap2: 6.9 cm ESV(MOD-sp2): 32.9 ml ESV(sp2-el): 30.3 ml EF(MOD-sp2): 55.9 % SV(sp4-el): 59.1 ml LA dimension(2D): 4.0 cm LA A4 area: 15.8 cm2 RA A4 area: 16.5 cm2 TAPSE: 2.3 cm Time Measurements MV dec time: 0.23 sec Doppler Measurements & Calculations MV E max walter: 79.6 cm/sec Lat Peak E' Walter: 8.7 cm/sec Med Peak E' Walter: 6.5 cm/sec MV A max walter: 87.2 cm/sec E/E' lat: 9.1 E/E' med: 12.3 MV E/A: 0.91 Ao V2 max: 184.7 cm/sec LV V1 max: 102.9 cm/sec MV dec slope: 339.8 cm/sec2 Ao max P.6 mmHg LV V1 max P.2 mmHg Ao V2 mean: 126.0 cm/sec LV V1 mean P.4 mmHg Ao mean P.3 mmHg LV V1 mean: 73.0 cm/sec Ao V2 VTI: 42.1 cm LV V1 VTI: 25.6 cm AV (velocity ratio): 0.61 EMILY(I,D): 2.0 cm2 EMILY(V,D): 1.8 cm2 SV(LVOT): 82.7 ml PA V2 max: 94.8 cm/sec PA max PG (full): 2.1 mmHg ECHO/Echo Complete Interpretation Summary Normal LV size. Left ventricular systolic function is normal. The estimated ejection fraction is 65 %. Mild concentric left ventricular hypertrophy. Stage 1 diastolic dysfunction. Ordering Physician: Eamon Duque Referring Physician: Eamon Duque MD Performed By: Angela Em RDCS
== END | disposition home or self-care (01) ==
LOC: CVS 10:51
PROVIDERS: PCP Family Medicine; Referring Provider Internal Medicine Cardiovascular Disease; Visit Provider Internal Medicine Cardiovascular Disease
DX: R06.02 Shortness of breath (principal); N18.30 Chronic kidney disease, stage 3 unspecified; R42 Dizziness and giddiness; I25.10 Atherosclerotic heart disease of native coronary artery without angina pectoris; Z95.5 Presence of coronary angioplasty implant and graft; E78.00 Pure hypercholesterolemia, unspecified; I12.9 Hypertensive chronic kidney disease with stage 1 through stage 4 chronic kidney disease, or unspecified chronic kidney disease
CPT/HCPCS: 93306

== ENCOUNTER → 2023-11-29 | Outpatient (CLI) | payer MEDICARE, OTHER, SELFPAY | END | disposition home or self-care (01) | LOC: MTLAB 11:22 | PROVIDERS: PCP Family Medicine; Referring Provider Internal Medicine Gastroenterology; Visit Provider Internal Medicine Gastroenterology | DX: R19.7 Diarrhea, unspecified (principal) | CPT/HCPCS: 36415; 82653; 82705; 82784; 83516; 83993; 86140; 86255 ==

== ENCOUNTER → 2023-12-21 | Outpatient (CLI) | payer MEDICARE, OTHER, SELFPAY ==
[2023-12-21 11:15] LABS: PSA,Total - Annual Screen 0.84 ng/mL (0.00-4.00)
== END | disposition home or self-care (01) ==
LOC: LAB 10:15
PROVIDERS: PCP Family Medicine; Referring Provider Urology; Visit Provider Urology
DX: Z12.5 Encounter for screening for malignant neoplasm of prostate (principal)
CPT/HCPCS: 36415; 84153; G0103

== ENCOUNTER → 2023-12-29 | Outpatient (CLI) | payer MEDICARE, OTHER, SELFPAY | END | disposition home or self-care (01) | LOC: MTLAB 10:44 | PROVIDERS: PCP Family Medicine; Referring Provider Internal Medicine Gastroenterology; Visit Provider Internal Medicine Gastroenterology | DX: K52.9 Noninfective gastroenteritis and colitis, unspecified (principal) | CPT/HCPCS: 83993 ==

== ENCOUNTER → 2024-02-13 | Outpatient (CLI) | payer MEDICARE, OTHER, SELFPAY ==
[2024-02-13 10:12] LABS: Albumin, Serum 3.5 g/dL (3.2-5.0); BUN 23 mg/dL (7-18); BUN/Creat Ratio 13.9 RATIO (10-20); Calcium,Total 9.1 mg/dL (8.5-10.1); Chloride 108 mmol/L (98-107); Creatinine, Serum 1.65 mg/dL (0.70-1.30); EST Glomerular Filtration Rate 43 mL/min (>60); Est Glom Filt Rate - Afr Amer 52 mL/min (>60); Glucose 165 mg/dL (74-106); Phosphorus 3.2 mg/dL (2.5-4.9); Sodium Level 139 mmol/L (136-145)
== END | disposition home or self-care (01) ==
LOC: LAB.FUTURE 08:39 → LAB 08:40
PROVIDERS: PCP Family Medicine; Referring Provider Internal Medicine Nephrology; Visit Provider Internal Medicine Nephrology
DX: N18.31 Chronic kidney disease, stage 3a (principal)
CPT/HCPCS: 36415; 80069

== ENCOUNTER 2024-03-13 20:48 | Emergency (ER) | payer MEDICARE, OTHER, SELFPAY ==
[2024-03-13 20:48] VITALS: BP 178/74; PULSE 82; RESP 16; TEMP 36.7; O2SAT 98; BMI 28.8
--- NOTE | 2024-03-13 21:00 | CT_ITS ---
INDICATION: pleuritic chest pain, recent DVT dx EXAMINATION: CT CHEST WITH CONTRAST - CTA Chest WO/W Contrast Injection TECHNIQUE: Helically acquired images were obtained of the chest following IV contrast timed in the pulmonary arterial phase with sagittal and coronal reconstructed images. Post-processing of the angiographic images was performed with multiplanar reformation and 3D reconstruction. Individualized dose optimization techniques were used for this CT. IV contrast dosage and agent: 100 mL of Isovue-370. COMPARISON: None. FINDINGS: LUNGS, PLEURA AND LARGE AIRWAYS: No consolidation or edema. No pulmonary nodule. No pleural effusion. No pneumothorax. THYROID: Unremarkable. HEART AND PERICARDIUM: Coronary artery calcifications are present. No pericardial effusion. No evidence of right heart strain. Right ventricle to left ventricle ratio measures less than 1. MEDIASTINUM AND NGUYEN: No mediastinal or hilar adenopathy. Esophagus is unremarkable. No hiatal hernia. VESSELS: No pulmonary embolism. No thoracic aortic aneurysm. UPPER ABDOMEN: The visualized upper abdomen is unremarkable. BONES: No acute abnormality. CT/CTA Chest W/WO Contrast IMPRESSION: 1. No pulmonary embolism. 2. No evidence of acute cardiopulmonary disease. Electronically Signed: Fernando Apple DO at 22:15 EDT ,
--- NOTE | 2024-03-13 21:00 | EKG12_ITS ---
Test Reason : CP Blood Pressure : / mmHG Vent. Rate : 082 BPM Atrial Rate : 082 BPM P-R Int : 174 ms QRS Dur : 084 ms QT Int : 376 ms P-R-T Axes : 039 012 040 degrees QTc Int : 439 ms Normal sinus rhythm Normal ECG Confirmed by RIA MARSHALL, PEYMAN ([id number]), editorial manager RADHA VALENTE ([id number]) on 03/18/2024 8:42:42 AM Referred By: Confirmed By:DONI ROLLINS MD
--- NOTE | 2024-03-13 21:02 | ED.VIS.CHEST ---
HPI History of Present Illness Chief Complaint: Chest Pain Informant: patient and family Narrative Narrative: 83-year-old male with a history of coronary stent 19 states he was resting in his chair watching TV about 1 hour ago suddenly started having central sharp pleuritic chest discomfort that making him feel little short of breath. No recent cough. He has had some pain behind his left knee lately and states he was diagnosed with a DVT there a month or so ago. States that his left arm was bothering him after this started a little while ago but that part stopped. He states he tried some Pepto-Bismol and it did not help tonight so he came in. [facility] Medical History History of hydrocele Rosacea Dysmetabolic syndrome X Anxiety Wears dentures Wears hearing aid Wears glasses Panic attack Insulin dependent diabetes mellitus Diabetes Arthritis High cholesterol DVT (deep venous thrombosis) Easy bruising Excessive bleeding Injury of head and neck History of IBS Gastric reflux Former smoker Chronic cough History of pain when walking History of edema History of stress test Hypertension Cardiology follow-up encounter Swelling of left lower extremity Left leg pain History of intestinal obstruction TIA (transient ischemic attack) History of DVT (deep vein thrombosis) Neuralgia BPH (benign prostatic hyperplasia) CKD (chronic kidney disease) stage 3, GFR 30-59 ml/min Obstructive sleep apnea Essential (primary) hypertension Hyperlipidemia Atherosclerotic heart disease of hoh coronary artery without angina pectoris GERD (gastroesophageal reflux disease) Type II diabetes mellitus Home Medications ?Medication ?Instructions ?Recorded ?Last Taken ?Type amlodipine 10 mg tablet 10 mg PO DAILY blood pressure 09/05/17 04/13/22 History cyanocobalamin (vitamin B-12) 1,000 mcg PO DAILY vitamin 09/05/17 04/13/22 History 1,000 mcg tablet (Vitamin B-12) clonazepam 0.5 mg tablet 0.5 mg PO .SEE anxiety 09/07/17 04/12/22 History dicyclomine 10 mg capsule 10 mg PO TID ibs 01/30/20 04/13/22 History nitroglycerin 0.4 mg sublingual 0.4 mg sublingual Q5-15M PRN pain 11/09/20 Unknown Rx tablet #25 tabs finasteride 5 mg tablet 5 mg PO DAILY prostate 01/28/21 04/12/22 History pantoprazole 40 mg tablet,delayed 40 mg PO BID 05/25/21 04/13/22 History release atorvastatin 80 mg tablet 80 mg PO DAILY 01/27/22 04/12/22 History insulin glargine 100 unit/mL 32 unit subcut DAILY dm 01/27/22 04/13/22 History subcutaneous solution cholecalciferol (vitamin D3) 50 50 mcg PO DINNER 04/13/22 04/12/22 History mcg (2,000 unit) capsule insulin lispro 100 unit/mL 9 unit subcut TIDCM dm 04/13/22 04/13/22 History subcutaneous pen [id number] 300 mcg-K 60 1 tab PO DAILY supplement 04/13/22 04/13/22 History mcg-lycop 600 mcg-lutein 300 mcg tablet (Centrum Silver Men) simethicone 80 mg chewable tablet 80 mg PO DAILY PRN PRN gas relief 04/13/22 Unknown History valsartan 320 mg tablet 320 mg PO DAILY heart 04/13/22 04/13/22 History clopidogrel 75 mg tablet 75 mg PO DAILY #90 tabs 09/07/23 Unknown Rx aspirin 81 mg tablet,delayed 81 mg PO DAILY 03/07/24 Unknown History release (Adult Aspirin Regimen) tamsulosin 0.4 mg capsule 0.4 mg PO QDAY 03/07/24 Unknown History Allergy/AdvReac Type Severity Reaction Status Date / Time sulfamethoxazole (From Allergy Severe Shortness Verified 03/13/24 20:49 Bactrim) of breath trimethoprim (From Bactrim) Allergy Severe Shortness Verified 03/13/24 20:49 of breath acyclovir Allergy Shortness Verified 03/13/24 20:49 of breath cephalexin (From Keflex) Allergy Other Verified 03/13/24 20:49 cetirizine HCl (From Zyrtec) Allergy Rash Verified 03/13/24 20:49 doxepin (Doxepin) Allergy Other Verified 03/13/24 20:49 fluoxetine (From Prozac) Allergy Other Verified 03/13/24 20:49 fluoxetine HCl (From Prozac) Allergy Other Verified 03/13/24 20:49 hydromorphone HCl (From Allergy Other Verified 03/13/24 20:49 Dilaudid) levofloxacin (From Levaquin) Allergy Other Verified 03/13/24 20:49 losartan (Losartan) Allergy Other Verified 03/13/24 20:49 ramipril Allergy Other Verified 03/13/24 20:49 tamsulosin (From Flomax) Allergy Other Verified 03/13/24 20:49 venlafaxine HCl (From Allergy Other Verified 03/13/24 20:49 Effexor) alfuzosin AdvReac Abd Verified 03/13/24 20:49 cramps/diarrhea fluvoxamine maleate (From AdvReac Other Verified 03/13/24 20:49 Luvox) gemfibrozil (From Lopid) AdvReac Unknown Verified 03/13/24 20:49 metformin AdvReac Other Verified 03/13/24 20:49 metoprolol AdvReac Other Verified 03/13/24 20:49 mold AdvReac NEEDS Verified 03/13/24 20:49 FOLLOW-UP nefazodone HCl (From Serzone) AdvReac Nausea/Vom/ Verified 03/13/24 20:49 Diarrhea nortriptyline (Nortriptyline) AdvReac Other Verified 03/13/24 20:49 trazodone AdvReac Nausea/Vom/ Verified 03/13/24 20:49 Diarrhea Family History Father , age 79 of [place] S/P CABG (coronary artery bypass graft), Onset Age: 74 CAD (coronary artery disease) Myocardial infarction Sudden cardiac Mother , age not mentioned, sudden cardiac Diabetes CAD (coronary artery disease) Sudden cardiac Myocardial infarction Surgical History History of hydrocelectomy History of appendectomy History of cholecystectomy History of herniorrhaphy History of coronary artery stent placement (05/31/11) History of left heart catheterization (10/22/11) Social History Smoking Status: Former smoker ROS ROS ED Constitutional Constitutional ED: Denies chills or fever(s) Eyes Eyes: Denies change in vision or diplopia ENT ENT ED: Denies rhinorrhea or sore throat Cardiovascular Cardiovascular: Reports chest pain; Denies palpitations Respiratory/Chest Respiratory/Chest: Reports dyspnea; Denies cough Gastrointestinal Gastrointestinal: Denies abdominal pain, diarrhea, nausea or vomiting Genitourinary Genitourinary ED: Denies dysuria or hematuria Musculoskeletal Musculoskeletal: Reports extremity pain; Denies back pain or neck pain Integumentary Denies abscess or rash Neurologic Neurologic: Denies headache(s), paresthesias or weakness Psychiatric Psychiatric: Denies suicidal thoughts EXAM Physical Exam Const Vital Signs: 03/13/24 20:48 03/13/24 20:57 03/13/24 21:00 Temperature 98.0 F Temperature Source Temporal Pulse Rate 82 Respiratory Rate 16 Respiratory Effort Short of Breath Blood Pressure 178/74 H Blood Pressure Mean 108 Pulse Ox 98 Oxygen Delivery Method Room Air Room Air 03/13/24 21:35 03/13/24 21:48 03/13/24 22:00 Temperature Temperature Source Pulse Rate 64 70 66 Respiratory Rate 18 18 Respiratory Effort Blood Pressure 143/69 H 142/65 H 117/58 L Blood Pressure Mean 90 77 Pulse Ox 94 94 Oxygen Delivery Method Room Air Room Air 03/13/24 22:59 Temperature Temperature Source Pulse Rate 68 Respiratory Rate 16 Respiratory Effort Blood Pressure 145/65 H Blood Pressure Mean 91 Pulse Ox 94 Oxygen Delivery Method Room Air Positive well nourished and well developed General Appearance ED: well developed and NAD HEENT Reports moist mucous membranes normocephalic and atraumatic Eyes PERRL and EOMs intact bilaterally Neck full ROM and supple Chest Wall inspection of chest normal and palpation of chest normal Chest Narrative: Some splinting with deep inspiration due to pain, and tender mid to lower sternal, a little bit in the epigastrium Resp normal respiratory effort Resp Narrative: High-pitched rhonchi at the bases/diminished. Equal bilaterally. Cardio regular rate, regular rhythm and no murmurs GI non-distended GI Narrative: Mildly tender in epigastrium without guarding or rebound, no pulsatile mass, equal pulses in both feet, otherwise benign abdomen. Auscultation: normoactive bowel sounds Palpation: soft Back/Spine no CVA tenderness General Back: other FROM Extremity normal to inspection General Extremety ED: Negative for edema, pulses abnormal or tenderness General Extremity: Negative for edema or pulses abnormal Neuro oriented x3, CN's II-XII intact bilaterally and no sensory deficits noted Sensorium / Orientation: awake and alert Motor Exam: strength 5/5 throughout Psych Mood & Affect: anxious Skin no rashes or lesions noted and no wounds Heart Score History: Moderately Suspicious ECG: Normal Age: >/= 65 years Risk Factors: >/= 3 Risk Factors or History of CAD Troponin: </= Normal Limit Score: 5 MDM MDM MDM Narrative Medical decision making narrative: Patient having significant discomfort but his EKG is completely normal. Initially gave him some morphine while we obtain task, as a differential here includes esophageal discomfort, PE given he had a blood clot diagnosed in his leg relatively recently according to him, acute coronary syndrome given he has a history of CAD, could also be myocarditis or musculoskeletal etiologies. He has equal pulses in his arms, less likely to be a dissection is not radiating into his back or feeling like a tearing sensation. Given the pleuritic nature of his pain and him telling me he recently was diagnosed with a blood clot and he is not on anticoagulants just dual antiplatelet therapy, I skip chest x-ray and went to CT angiography of the chest. I reviewed the images and the report. I agree with it. This is normal no pulmonary embolus, no pneumonia no dissection noted. EKG is normal. His initial troponin is normal as is his BNP. He has a bit of a leukocytosis. He does not have a cough and I see no evidence of pneumonia on the chest x-ray. He states the morphine helped a little bit but it was only for 5 minutes or so and then he really complain of severe pain again so we tried a nitroglycerin he said initially that helped a little to but then he was back to having relatively severe pain so given that his troponin came back normal and his CT is normal, I gave him a GI cocktail. He said it helped some but he wanted another dose of morphine which was given. This helped a lot more. Chest a little tender, second troponin came back lower than the initial, both in the single digits. Given his normal EKG and 2 negative troponins, the last time he had a heart cath he had an RCA stent with a 30% proximal LAD lesion, I have a hard time believing this is acute coronary syndrome in this context. He is feeling much better, I offered admission he declines and is comfortable going home with blood pressures better, he has an appoint with his doctor tomorrow, which is perfect for follow-up. Lab Data Attestation: I reviewed the patient's lab results. Labs: Laboratory Results - last 24 hr 03/13/24 03/13/24 21:00 23:17 WBC 14.3 H RBC 5.05 Hgb 13.9 Hct 41.7 MCV 82.6 MCH 27.5 MCHC 33.3 RDW Std Deviation 37.1 RDW Coeff of Cristobal 12.4 Plt Count 228 MPV 10.0 Immature Gran % (Auto) 0.400 Neut % (Auto) 58.4 Lymph % (Auto) 28.4 [place] % (Auto) 6.3 Eos % (Auto) 6.0 H Baso % (Auto) 0.5 Absolute Neuts (auto) 8.3 H Absolute Lymphs (auto) 4.05 Nucleated RBC % 0 Sodium 137 Potassium 4.2 Chloride 108 H Carbon Dioxide 21.0 Anion Gap 8 BUN 27 H Creatinine 1.62 H Estim Creat Clear Calc 39.37 Est GFR (MDRD) Af Amer 53 L Est GFR (MDRD) Non-Af 44 L BUN/Creatinine Ratio 16.7 Glucose 251 H Calcium 8.8 Troponin I High Sens 9 8 B-Natriuretic Peptide 33.0 Radiography Diagnostic Testing: Clinical Impression(s) from Imaging Studies Chest CTA 03/13/24 21:00 IMPRESSION: 1. No pulmonary embolism. 2. No evidence of acute cardiopulmonary disease. Electronically Signed: Fernando Apple DO at 22:15 EDT , Rhythm Strip Rhythm Strip: Sinus Rhythm Rate: 80 Ectopy: None EKG Initial EKG: Attestation: I personally reviewed and interpreted this EKG as follows: Interpretation: Sinus Rhythm and No Acute Injury Pattern Comments: nml EKG Discharge Plan Triage Chief Complaint: Chest Pain ED Provider: Mitchell Reese Dx/Rx/DC Orders Clinical Impression: Chest pain, unspecified Instructions: ED Chest Pain, Noncardiac Prescriptions: No Action amlodipine 10 mg tablet 10 mg PO DAILY cyanocobalamin (vitamin B-12) [Vitamin B-12] 1,000 mcg tablet 1,000 mcg PO DAILY dicyclomine 10 mg capsule 10 mg PO TID finasteride 5 mg tablet 5 mg PO DAILY atorvastatin 80 mg tablet 80 mg PO DAILY aspirin [Adult Aspirin Regimen] 81 mg tablet,delayed release (DR/EC) 81 mg PO DAILY tamsulosin 0.4 mg capsule 0.4 mg PO QDAY clonazepam 0.5 MG tablet 0.5 mg PO .SEE Patient Comments: ANXIETY, TAKE 0.5 tab ON & AM, EVERY NIGHT EXCEPT MONDAY pantoprazole 40 mg tablet,delayed release (DR/EC) 40 mg PO BID insulin glargine 100 unit/mL solution 32 unit SC DAILY valsartan 320 mg tablet 320 mg PO DAILY Patient Comments: take 1 tablet by mouth once daily simethicone 80 mg tablet,chewable 80 mg PO DAILY PRN PRN (Reason: gas relief) Patient Comments: CHEW AND SWALLOW 1 tablet by mouth every 6 hours if needed insulin lispro 100 unit/mL Insulin Pen 9 unit SUBCUT TIDCM cholecalciferol (vitamin D3) 50 mcg (2,000 unit) Capsule 50 mcg PO DINNER Centrum Silver Men 300-600-300 mcg Tablet 1 tab PO DAILY nitroglycerin 0.4 mg tablet, sublingual 0.4 mg SUBLINGUAL Q5-15M PRN (Reason: pain) Qty: 25 3RF clopidogrel 75 mg tablet 75 mg PO DAILY Qty: 90 3RF Primary Care Provider: Shivam Cullen Referrals: Shivam Cullen MD [Primary Care Provider] - Keep Jeanie appointment Print Language: Divehi Disposition Disposition: Home, Self Care
[2024-03-13] MEDS: Morphine 4 MG/ML Syringe IV ×2 (21:09→23:20)
[2024-03-13] MEDS: 0.9% Normal Saline (1000mL) 1,000 ML 150 ML IV (21:09)
[2024-03-13] MEDS: Ondansetron 4 MG/2 ML Vial IV (21:09)
[2024-03-13 21:17] LABS: Absolute Lymphocyte Count 4.05 X10^3/uL (0.83-4.51); Absolute Neutrophil Count 8.3 X10^3/uL (2.0-7.7); Basophil# 0.07 X10^3/uL; Basophil% 0.5 % (0-1); Eosinophil# 0.86 X10^3/uL; Hematocrit 41.7 % (40-54); Hemoglobin 13.9 g/dL (13.0-16.5); Lymphocyte # 4.05 X10^3/ul (0.83-4.51); Lymphocyte % 28.4 % (19-41); Mean Corp Hgb Conc 33.3 g/dL (32-36); Mean Corpuscular Hgb 27.5 pg (27.0-32.0); Mean Corpuscular Volume 82.6 fL (80-94); Monocyte% 6.3 % (0-10); NRBC Flagged by Analyzer 0 % (0-5); Neutrophil # 8.32 X10^3/uL (2.7-7.7); Neutrophil % 58.4 % (47-70); Platelet Count 228 K/mm3 (150-450); RBC Distribution Width CV 12.4 % (11.6-14.6); RBC Distribution Width SD 37.1 fl (35.1-43.9); Red Blood Count 5.05 M/mm3 (4.6-6.2); White Blood Count 14.3 K/mm3 (4.4-11.0)
[2024-03-13 21:29] LABS: Anion Gap 8 (5-15); BUN 27 mg/dL (7-18); BUN/Creat Ratio 16.7 RATIO (10-20); Calcium,Total 8.8 mg/dL (8.5-10.1); Chloride 108 mmol/L (98-107); Creatinine, Serum 1.62 mg/dL (0.70-1.30); EST Glomerular Filtration Rate 44 mL/min (>60); Est Glom Filt Rate - Afr Amer 53 mL/min (>60); Estimated Creatinine Clearance 39.37 ml/min; Glucose 251 mg/dL (74-106); Potassium 4.2 mmol/L (3.5-5.1); Sodium Level 137 mmol/L (136-145); Troponin-I HS (w/2H Reflex) 9 pg/mL (3.0-78.0)
[2024-03-13 21:35] VITALS: BP 143/69; PULSE 64
[2024-03-13] MEDS: Nitroglycerin SL (ED/IMG/CATH) 0.4 MG TABLET SL (21:35)
[2024-03-13 21:48] VITALS: BP 142/65; PULSE 70; RESP 18; O2SAT 94
[2024-03-13 22:00] VITALS: BP 117/58; PULSE 66; RESP 18; O2SAT 94
[2024-03-13] MEDS: Lidocaine 2% Viscous15 ML UDC 15 ML PO (22:23)
[2024-03-13] MEDS: Mag /Aluminum/Simeth WCH UDC 30 ML ORAL.SUSP PO (22:23)
[2024-03-13 22:59] VITALS: BP 145/65; PULSE 68; RESP 16; O2SAT 94
[2024-03-13 23:09] LABS: Reflex Troponin-HS? (from REC) Y
[2024-03-13 23:50] LABS: Troponin-I HS 8 pg/mL (3.0-78.0)
[2024-03-14] VITALS: BP 148/70; PULSE 77; RESP 21; O2SAT 95
[2024-03-14 00:18] VITALS: BP 148/70; PULSE 78; RESP 20; TEMP 37.4; O2SAT 94
== END 2024-03-14 00:23 | disposition home or self-care (01) ==
PROVIDERS: Emergency Provider Emergency Medicine; PCP Family Medicine; Visit Provider Emergency Medicine
DX: R07.89 Other chest pain (principal); E11.22 Type 2 diabetes mellitus with diabetic chronic kidney disease; Z79.4 Long term (current) use of insulin; N18.30 Chronic kidney disease, stage 3 unspecified; E78.00 Pure hypercholesterolemia, unspecified; I25.10 Atherosclerotic heart disease of native coronary artery without angina pectoris; I12.9 Hypertensive chronic kidney disease with stage 1 through stage 4 chronic kidney disease, or unspecified chronic kidney disease; R06.02 Shortness of breath; Z95.5 Presence of coronary angioplasty implant and graft; Z79.02 Long term (current) use of antithrombotics/antiplatelets; Z79.82 Long term (current) use of aspirin; Z79.899 Other long term (current) drug therapy; Z87.891 Personal history of nicotine dependence
CPT/HCPCS: 71275; 80048; 83880; 84484; 85025; 93005; 96361; 96374; 96375; 96376; 99284; J7030; Q9967; A4216; J2405

== ENCOUNTER 2024-04-24 07:28 | Emergency (ER) | payer MEDICARE, OTHER, SELFPAY ==
[2024-04-24 07:30] VITALS: BP 146/64; PULSE 64; RESP 18; TEMP 36.7; O2SAT 98; BMI 28.0
[2024-04-24 07:32] VITALS: BP 146/64; PULSE 64; RESP 18; TEMP 36.7; O2SAT 98
--- NOTE | 2024-04-24 07:39 | RAD_ITS ---
STUDY: X-RAY CHEST REASON FOR EXAM: Male, 83 years old. , Respiratory symptoms TECHNIQUE: PA and lateral views of the chest. COMPARISON: Comparison is made with prior study dated April 13, 2022. FINDINGS: The lungs are clear and expanded. There is no demonstrated pleural abnormality. Normal size heart. Normal mediastinum and ramya. Normal visualized pulmonary arteries. Normal visualized aortic arch and descending thoracic aorta. There are mild degenerative changes of the visualized thoracic spine. There is degenerative osteoarthritis of the bilateral shoulders. There is no demonstrated abnormality of the visualized soft tissue structures of the upper abdomen. RAD/Chest PA and Lateral IMPRESSION: Stable examination. No acute abnormality is seen. Electronically Signed: Raj Perez MD at 9:08 EDT ,
--- NOTE | 2024-04-24 07:39 | EDS_ITS ---
HPI History of Present Illness Chief Complaint: General Illness Detail of Chief Complaint: Cough, congestion, URTI Informant: patient Onset/Context/Timing Onset: Days (Onset April 19) Context: Sudden Onset Timing: Continuous and Waxes and wanes Quality: Upper respiratory tract infectious symptoms Location: Upper respiratory Current Severity: Mild Maximum Severity: Moderate Worsened by: Difficulty breathing out of his nose Relieved by: Nothing Associated Symptoms Associated Symptoms: Change in voice, nonproductive cough Narrative Narrative: Patient is a 83-year-old male with history of diabetes, hypertension and coronary disease who presents with upper respiratory tract infection symptoms that started April 19. [place] was initially sneezing and then coughing. He felt cold compared to others and wore a jacket when everyone else was wearing a T-shirt. He does endorse congestion. He denies sore throat. His cough is nonproductive. He does endorse change in voice. He denies headache. He denies ear pain. He denies GI symptoms. He denies history of pneumonia. He does report mild shortness of breath. He was recently seen for chest pain, March 13, 2024. Workup was negative for cardiac. Prior similar symptoms: No Recent Illness/Hospitalization: Yes [facility] Medical History History of hydrocele Rosacea Dysmetabolic syndrome X Anxiety Wears dentures Wears hearing aid Wears glasses Panic attack Insulin dependent diabetes mellitus Diabetes Arthritis High cholesterol DVT (deep venous thrombosis) Easy bruising Excessive bleeding Injury of head and neck History of IBS Gastric reflux Former smoker Chronic cough History of pain when walking History of edema History of stress test Hypertension Cardiology follow-up encounter Swelling of left lower extremity Left leg pain History of intestinal obstruction TIA (transient ischemic attack) History of DVT (deep vein thrombosis) Neuralgia BPH (benign prostatic hyperplasia) CKD (chronic kidney disease) stage 3, GFR 30-59 ml/min Obstructive sleep apnea Essential (primary) hypertension Hyperlipidemia Atherosclerotic heart disease of [place] coronary artery without angina pectoris GERD (gastroesophageal reflux disease) Type II diabetes mellitus Home Medications ?Medication ?Instructions ?Recorded ?Last Taken ?Type amlodipine 10 mg tablet 10 mg PO DAILY blood pressure 09/05/17 04/13/22 History cyanocobalamin (vitamin B-12) 1,000 mcg PO DAILY vitamin 09/05/17 04/13/22 History 1,000 mcg tablet (Vitamin B-12) clonazepam 0.5 mg tablet 0.5 mg PO .SEE anxiety 09/07/17 04/12/22 History dicyclomine 10 mg capsule 10 mg PO TID ibs 01/30/20 04/13/22 History nitroglycerin 0.4 mg sublingual 0.4 mg sublingual Q5-15M PRN pain 11/09/20 Unknown Rx tablet #25 tabs finasteride 5 mg tablet 5 mg PO DAILY prostate 01/28/21 04/12/22 History pantoprazole 40 mg tablet,delayed 40 mg PO BID 05/25/21 04/13/22 History release atorvastatin 80 mg tablet 80 mg PO DAILY 01/27/22 04/12/22 History insulin glargine 100 unit/mL 32 unit subcut DAILY dm 01/27/22 04/13/22 History subcutaneous solution cholecalciferol (vitamin D3) 50 50 mcg PO DINNER 04/13/22 04/12/22 History mcg (2,000 unit) capsule insulin lispro 100 unit/mL 9 unit subcut TIDCM dm 04/13/22 04/13/22 History subcutaneous pen [id number] 300 mcg-K 60 1 tab PO DAILY supplement 04/13/22 04/13/22 History mcg-lycop 600 mcg-lutein 300 mcg tablet (Centrum Silver Men) simethicone 80 mg chewable tablet 80 mg PO DAILY PRN PRN gas relief 04/13/22 Unknown History valsartan 320 mg tablet 320 mg PO DAILY heart 04/13/22 04/13/22 History clopidogrel 75 mg tablet 75 mg PO DAILY #90 tabs 09/07/23 Unknown Rx aspirin 81 mg tablet,delayed 81 mg PO DAILY 03/07/24 Unknown History release (Adult Aspirin Regimen) tamsulosin 0.4 mg capsule 0.4 mg PO QDAY 03/07/24 Unknown History Allergy/AdvReac Type Severity Reaction Status Date / Time sulfamethoxazole (From Allergy Severe Shortness Verified 04/24/24 07:30 Bactrim) of breath trimethoprim (From Bactrim) Allergy Severe Shortness Verified 04/24/24 07:30 of breath acyclovir Allergy Shortness Verified 04/24/24 07:30 of breath cephalexin (From Keflex) Allergy Other Verified 04/24/24 07:30 cetirizine HCl (From Zyrtec) Allergy Rash Verified 04/24/24 07:30 doxepin (Doxepin) Allergy Other Verified 04/24/24 07:30 fluoxetine (From Prozac) Allergy Other Verified 04/24/24 07:30 fluoxetine HCl (From Prozac) Allergy Other Verified 04/24/24 07:30 hydromorphone HCl (From Allergy Other Verified 03/13/24 20:49 Dilaudid) levofloxacin (From Levaquin) Allergy Other Verified 03/13/24 20:49 losartan (Losartan) Allergy Other Verified 03/13/24 20:49 ramipril Allergy Other Verified 03/13/24 20:49 tamsulosin (From Flomax) Allergy Other Verified 03/13/24 20:49 venlafaxine HCl (From Allergy Other Verified 03/13/24 20:49 Effexor) alfuzosin AdvReac Abd Verified 03/13/24 20:49 cramps/diarrhea fluvoxamine maleate (From AdvReac Other Verified 03/13/24 20:49 Luvox) gemfibrozil (From Lopid) AdvReac Unknown Verified 03/13/24 20:49 metformin AdvReac Other Verified 03/13/24 20:49 metoprolol AdvReac Other Verified 03/13/24 20:49 mold AdvReac NEEDS Verified 03/13/24 20:49 FOLLOW-UP nefazodone HCl (From Serzone) AdvReac Nausea/Vom/ Verified 03/13/24 20:49 Diarrhea nortriptyline (Nortriptyline) AdvReac Other Verified 03/13/24 20:49 trazodone AdvReac Nausea/Vom/ Verified 03/13/24 20:49 Diarrhea Family History Father , age 79 of [place] S/P CABG (coronary artery bypass graft), Onset Age: 74 CAD (coronary artery disease) Myocardial infarction Sudden cardiac Mother , age not mentioned, sudden cardiac Diabetes CAD (coronary artery disease) Sudden cardiac Myocardial infarction Surgical History History of hydrocelectomy History of appendectomy History of cholecystectomy History of herniorrhaphy History of coronary artery stent placement (05/31/11) History of left heart catheterization (10/22/11) Social History Smoking Status: Former smoker ROS ROS ED Constitutional Constitutional ED: Denies chills, fever(s), subjective or sweats Eyes Eyes: Denies blurry vision or change in vision ENT ENT ED: Reports other Details: Nasal congestion and hoarse voice ; Denies ear pain, rhinorrhea or sore throat Cardiovascular Cardiovascular: Denies chest pain, orthopnea, palpitations or paroxysmal nocturnal dyspnea Respiratory/Chest Respiratory/Chest: Reports cough and dyspnea; Denies dyspnea on exertion, orthopnea, paroxysmal nocturnal dyspnea or sputum Gastrointestinal Gastrointestinal: Denies nausea or vomiting Musculoskeletal Musculoskeletal: Denies arthralgias or myalgias Integumentary Denies rash Neurologic Neurologic: Reports weakness; Denies headache(s) Hematologic/Lymphatic Hematologic/Lymphatic: Reports systems reviewed and no addt'l complaints, except as documented EXAM Physical Exam Const Vital Signs: 04/24/24 07:30 04/24/24 07:32 04/24/24 07:43 Temperature 98.1 F 98.1 F Temperature Source Oral Oral Pulse Rate 64 64 Respiratory Rate 18 18 Respiratory Effort Short of Breath Respiratory Pattern Normal Blood Pressure 146/64 H 146/64 H Blood Pressure Mean 91 91 Pulse Ox 98 98 Oxygen Delivery Method Room Air Room Air Positive well nourished and well developed Constitutional Narrative: Patient does have a hoarse voice. His vital signs reveal slight elevation in blood pressure otherwise unremarkable. General Appearance ED: well developed and NAD; Negative for pallor HEENT Reports TM's clear and moist mucous membranes HEENT Narrative: Ears normal. External auditory canal normal. Nares patent with slight boggy mucosa and drainage noted. Posterior pharynx is normal. Uvula is midline. There is no deviation or protrusion. Tympanic Membrane ED: Yes TM's clear Eyes PERRL and EOMs intact bilaterally General Eye ED: Yes scleral icterus Neck no lymphadenopathy, supple and no JVD Neck Narrative: Trachea is midline. There is no stridor. Resp normal respiratory effort and clear to auscultation bilaterally Cardio regular rate, regular rhythm, S1 normal heart sound, S2 normal heart sound and no murmurs Extremity normal to inspection Neuro oriented x3 and CN's II-XII intact bilaterally Sensorium / Orientation: alert Psych mental status grossly normal Skin no rashes or lesions noted, no wounds and skin turgor normal General Skin Exam: Negative for jaundice or pallor MDM MDM MDM Narrative Medical decision making narrative: Differential diagnosis would include viral upper respiratory tract infection versus pneumonia. Will obtain chest x-ray. Since patient denies fever or chills laboratory tests were not obtained specifically CBC. With no fever myalgias arthralgias rapid antigen for influenza and COVID were not obtained. History & Record Review Additional record(s) reviewed:: Prior ED visit (Seen March 13, 2024 for chest pain. Patient was discharged and told not cardiac.) and Prior labs Radiography Chest X-Ray - ED: 2 View, Normal, Heart, Lungs (Minimal chronic changes noted on PA view. Lateral is unremarkable. [id number]), Mediastinum, Bony Structures and No Acute Disease Discharge Plan Triage Chief Complaint: General Illness ED Provider: Kavya Sánchezo Dx/Rx/DC Orders Clinical Impression: Upper respiratory infection with cough and congestion, Essential (primary) hypertension, History of coronary artery stent placement, CKD (chronic kidney disease) stage 3, GFR 30-59 ml/min, Hyperlipidemia, Hoarseness of voice Instructions: ED URI, Viral, No Abx (Adult) Prescriptions: No Action amlodipine 10 mg tablet 10 mg PO DAILY cyanocobalamin (vitamin B-12) [Vitamin B-12] 1,000 mcg tablet 1,000 mcg PO DAILY dicyclomine 10 mg capsule 10 mg PO TID finasteride 5 mg tablet 5 mg PO DAILY atorvastatin 80 mg tablet 80 mg PO DAILY aspirin [Adult Aspirin Regimen] 81 mg tablet,delayed release (DR/EC) 81 mg PO DAILY tamsulosin 0.4 mg capsule 0.4 mg PO QDAY clonazepam 0.5 MG tablet 0.5 mg PO .SEE Patient Comments: ANXIETY, TAKE 0.5 tab ON & AM, EVERY NIGHT EXCEPT MONDAY pantoprazole 40 mg tablet,delayed release (DR/EC) 40 mg PO BID insulin glargine 100 unit/mL solution 32 unit SC DAILY valsartan 320 mg tablet 320 mg PO DAILY Patient Comments: take 1 tablet by mouth once daily simethicone 80 mg tablet,chewable 80 mg PO DAILY PRN PRN (Reason: gas relief) Patient Comments: CHEW AND SWALLOW 1 tablet by mouth every 6 hours if needed insulin lispro 100 unit/mL Insulin Pen 9 unit SUBCUT TIDCM cholecalciferol (vitamin D3) 50 mcg (2,000 unit) Capsule 50 mcg PO DINNER Centrum Silver Men 300-600-300 mcg Tablet 1 tab PO DAILY nitroglycerin 0.4 mg tablet, sublingual 0.4 mg SUBLINGUAL Q5-15M PRN (Reason: pain) Qty: 25 3RF clopidogrel 75 mg tablet 75 mg PO DAILY Qty: 90 3RF Primary Care Provider: Shivam Cullen Referrals: Shivam Cullen MD [Primary Care Provider] - 1 Week if not improving Print Language: Citizen Of [place] Disposition Disposition: Home, Self Care
[2024-04-24 08:01] VITALS: BP 128/58; PULSE 65; RESP 16; TEMP 36.8; O2SAT 96
== END 2024-04-24 08:02 | disposition home or self-care (01) ==
PROVIDERS: Emergency Provider Emergency Medicine; PCP Family Medicine; Visit Provider Emergency Medicine
DX: J06.9 Acute upper respiratory infection, unspecified (principal); E11.22 Type 2 diabetes mellitus with diabetic chronic kidney disease; Z79.4 Long term (current) use of insulin; N18.30 Chronic kidney disease, stage 3 unspecified; E78.5 Hyperlipidemia, unspecified; I12.9 Hypertensive chronic kidney disease with stage 1 through stage 4 chronic kidney disease, or unspecified chronic kidney disease; Z95.5 Presence of coronary angioplasty implant and graft; I25.10 Atherosclerotic heart disease of native coronary artery without angina pectoris; R06.02 Shortness of breath; Z87.891 Personal history of nicotine dependence; R05.9 Cough, unspecified; Z90.49 Acquired absence of other specified parts of digestive tract; Z86.73 Personal history of transient ischemic attack (TIA), and cerebral infarction without residual deficits; Z86.718 Personal history of other venous thrombosis and embolism
CPT/HCPCS: 71046; 99282

== ENCOUNTER → 2024-09-28 | Outpatient (CLI) | payer MEDICARE, OTHER, SELFPAY ==
[2024-09-28 08:09] LABS: Protein, Urine (Random) 24.9 mg/dL (<11.9); Protein:Creat Ratio 213 mg/g CRE (0-200)
[2024-09-28 08:52] LABS: Albumin, Serum 3.4 g/dL (3.2-5.0); BUN 26 mg/dL (7-18); BUN/Creat Ratio 15.4 RATIO (10-20); Calcium,Total 9.1 mg/dL (8.5-10.1); Chloride 110 mmol/L (98-107); Creatinine, Serum 1.69 mg/dL (0.70-1.30); EST Glomerular Filtration Rate 42 mL/min (>60); Est Glom Filt Rate - Afr Amer 50 mL/min (>60); Glucose 167 mg/dL (74-106); Phosphorus 3.2 mg/dL (2.5-4.9); Potassium 4.4 mmol/L (3.5-5.1); Sodium Level 137 mmol/L (136-145)
== END | disposition home or self-care (01) ==
LOC: LAB 07:01
PROVIDERS: PCP Family Medicine; Referring Provider Internal Medicine Nephrology; Visit Provider Internal Medicine Nephrology
DX: E11.22 Type 2 diabetes mellitus with diabetic chronic kidney disease (principal); N18.31 Chronic kidney disease, stage 3a
CPT/HCPCS: 36415; 80069; 82570; 84156

== ENCOUNTER → 2025-05-06 | Outpatient (CLI) | payer MEDICARE, OTHER, SELFPAY ==
--- OUTSIDE RECORDS SUMMARY | 2025-03-20 08:49 | XMS RPT_ITS ---
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 Name Role Phone LUISITO CULLEN Primary Care Unavailab LUISITO Boggs Referring Unavailab LUISITO Boggs Primary Care Unavailab LUISITO Boggs Attending Unavailab LUISITO Boggs Primary Care Unavailab LUISITO Boggs Primary Care Unavailab LUISITO Boggs Primary Care Unavailab LUISITO Boggs Referring Unavailab LUISITO Boggs Primary Care Unavailab LUISITO Boggs Attending Unavailab LUISITO Boggs Primary Care Unavailab LUISITO Boggs Primary Care Unavailab c[place] Attending LUISITO Pickard MD Primary Care Unavaila ble PROBLEMS DATE TYPE CONDITION / CODE ATTENDING STATUS [facility] 10/17/2022 Active Type 2 diabetes mellitus with stage 3 chronic kidney disease, with long-term current use of insulin, unspecified whether stage 3a or 3b CKD (HCC) / E11.22(ICD-10) NA Active [facility] 10/17/2022 Active Type 2 diabetes mellitus with stage 3 chronic kidney disease, with long-term current use of insulin, unspecified whether stage 3a or 3b CKD (HCC) / N18.30(ICD-10) NA Active [facility] 10/17/2022 Active Type 2 diabetes mellitus with stage 3 chronic kidney disease, with long-term current use of insulin, unspecified whether stage 3a or 3b CKD (HCC) / Z79.4(ICD-10) Active [facility] 10/17/2022 Active Type 2 diabetes mellitus with stage 3b chronic kidney disease, with long-term current use of insulin (HCC) / E11.22(ICD-10) [facility] 10/17/2022 Active Type 2 diabetes mellitus with stage 3b chronic kidney disease, with long-term current use of insulin (HCC) / N18.32(ICD-10) [facility] 10/17/2022 Active Type 2 diabetes mellitus with stage 3b chronic kidney disease, with long-term current use of insulin (HCC) / Z79.4(ICD-10) [facility] 10/17/2022 Active Polyneuropathy / G62.9(ICD-10) LUISITO CULLEN [facility] 01/02/2025 Active Allergic rhiniti s, unspecified seasonality, unspecified trigger / J30.9(ICD-10) LUISITO CULLEN [facility] 01/02/2025 Active [facility] (curre nt) use of insulin (HCC) / Z79.4(ICD-10) LUISITO CULLEN [facility] 10/17/2022 Active Type 2 diabetes mellitus with diabetic polyneuropathy, with long-term current use of insulin (HCC) / E11.42(ICD-10) [facility] 10/17/2022 Active Type 2 diabetes mellitus with diabetic polyneuropathy, with long-term current use of insulin (HCC) / Z79.4(ICD-10) [facility] 05/27/2015 Active Mixed hyperlipid emia / E78.2(ICD-10) [facility] 08/23/2019 Active CATHY (obstructive sleep apnea) / G47.33(ICD-10) LUISITO CULLEN [facility] 08/04/2017 Active Benign prostatic hyperplasia with nocturia / N40.1(ICD-10) LUISITO CULLEN Active [facility] 08/04/2017 Active Benign prostatic hyperplasia with nocturia / R35.1(ICD-10) LUISITO CULLEN Active [facility] 06/16/2011 Active ASHD (arterioscl erotic heart disease) / I25.10(ICD-10) LUISITO CULLEN Active [facility] 02/21/2011 Active Primary hyperten chester / I10(ICD-10) LUISITO CULLEN Active [facility] 07/06/2010 Active Gastroesophageal reflux disease, unspecified whether esophagitis present / K21.9(ICD-10) LUISITO CULLEN Active [facility] PROCEDURES No Procedure Records Found RESULTS PROGRESS Observed: 03/20/2025 9:30 AM Status: COMPLETED Source: [facility] HNO ID: [id number] Author: ROXY KAPLAN RPh Service: ? Author Type: Pharmacist Type: Progress Notes Filed: 03/20/2025 09:51 Note Text: Primary Care Pharmacy Visit CC (Reason for Consult): (E11.22, N18.30, Z79.4) Type 2 diabetes mellitus with stage 3 chronic kidney disease, with long-term current use of insulin, unspecified whether stage 3a or 3b CKD (HCC) (primary encounter diagnosis) Goal(s): A1c <7% per consult; however, would target goal of <8% given age Last Collaborating Provider Visit: 01/02/[address] Cullen Jeet Castaneda is a 84 year old male presenting for follow up visit in person. Patient consents to pharmacy collaborative practice agreement. Last Pharmacy Visit: 12/19/24 HPI: Reports doing well Reports had a low last night, treated with orange juice Sometimes gives an extra 4 units if BG is higher in between meals Has good supply of insulins Current DM Medications: Basaglar 32 units once daily at bedtime Humalog 10 units TID before meals - adds 1 unit if BG>200 before meal Previously Trialed DM Meds: Ozempic - GI side effects Metformin - stopped due to kidney fxn Farxiga - dizziness Diet Denies any recent changes GLYCEMIC CONTROL: Glucometer present at visit: Yes - Juan 2 reader Hypoglycemia: No CGM Data Past medical history reviewed. ALLERGIES Allergen Reactions Trazodone GI Upset Acyclovir Shortness of Breath Alfuzosin GI Upset Dilaudid [Hydromorp* Mental Status Change Doxepin Mental Status Change Effexor [Venlafaxin* panic Farxiga [Dapagliflo* Other: See Comments lightheadedness Flomax [Tamsulosin * GI Upset Hydromorphone Mental Status Change Keflex [Cephalexin] Hives Levaquin [Levofloxa* panic attack Lopid [Gemfibrozil] Losartan Mental Status Change hyponatremia Luvox Unknown Metformin GI Upset Metoprolol Tartrate Intolerance bradycardia at 12.5 w heart rate 48/ fatigue Mold Nortriptyline decrease libido Ozempic [Semaglutid* Vomiting Prozac [Fluoxetine * panic Ramipril Cough Serzone [Nefazodone* GI Upset Zyrtec [Cetirizine] Rash Current Outpatient Medications Medication Sig Dispense Refill amLODIPine (NORVASC) 10 mg tablet Take 1 tablet by mouth once daily. 90 tablet 1 atorvastatin (LIPITOR) 80 mg tablet Take 1 tablet by mouth once daily. [address] (PROTONIX) 40 mg tablet Take 1 tablet by mouth two times a day. 1/2 hour before meal 180 tablet 1 valsartan (DIOVAN) 320 mg tablet Take 1 tablet by mouth once daily. 90 tablet 1 finasteride (PROSCAR) 5 mg tablet Take 1 tablet by mouth once daily. 90 tablet 1 Insulin Dalton, Disposable, (BD ULTRA-FINE RHODA PEN NEEDLE) 32 gauge x 5/32 Use 4 needles daily with insulin pen for Lantus and Novolog. DX:E11.22 200 each 11 dicyclomine (BENTYL) 10 mg capsule TAKE 1 CAPSULE BY MOUTH BEFORE MEALS AND AT BEDTIME 360 capsule 1 clopidogrel (PLAVIX) 75 mg tablet Take 1 tablet by mouth once daily. 90 tablet 1 simethicone, chewable (GAS RELIEF, SIMETHICONE,) 80 mg chewable tablet Take 1 tablet by mouth every 6 hours as needed. 90 tablet 1 insulin glargine 100 unit/mL (3 mL) Inject 32 Units subcutaneously daily at bedtime. Gets through [employer] [facility]. insulin lispro (HUMALOG KWIKPEN INSULIN) 100 unit/mL Inject 10 Units subcutaneously three times a day before meals. Patient assistance medication ([facility]) tamsulosin (FLOMAX) 0.4 mg Take 1 capsule by mouth every afternoon. nitroglycerin sublingual (NITROQUICK) 0.4 mg SL tablet Dissolve 1 tablet under the tongue every 5 minutes as needed for chest pain. 25 tablet 1 flash glucose sensor (FREESTYLE JUAN 2 SENSOR) kit 2 Each five times a day. DX E11.42 Insulin Yes 2 Kit 11 multivit-min/folic/vit K/lycop (ONE-A-DAY MEN'S MULTIVITAMIN ORAL) Take 1 tablet by mouth once daily. blood sugar diagnostic (BLOOD GLUCOSE TEST) test strip Test blood sugar four times daily. Dx E11.22, N18.3, Z79.4. Insulin: yes. Freestyle Lite brand preferred. 200 Strip 11 Lancets lancets Test blood sugar(s) 4 times daily. Dx: Type 2 DM - Uncontrolled E11.65 Insulin: Yes 200 Each 11 flash glucose sensor (FREESTYLE JUAN 14 DAY SENSOR) kit 2 Each four times daily. DX E11.9 Insulin Yes 2 Each 5 flash glucose scanning reader (FREESTYLE JUAN 14 DAY READER) 1 Device four times daily. DX E11.9 Insulin Yes 1 Each 0 Blood-Glucose Meter (FREESTYLE LITE METER) monitoring kit 1 Each as directed. 1 Each 0 clonazePAM (KLONOPIN) 0.5 mg tablet take 1 tablet by mouth twice a day if needed for anxiety 45 tablet 0 aspirin, enteric coated (ASPIR-LOW) 81 mg EC tablet Take 1 tablet by mouth once daily. cyanocobalamin (VITAMIN B-12) 1,000 mcg tab Take 1 tablet by mouth once daily. 0 Cholecalciferol, Vitamin D3, 1,000 unit cap Take 1,000 Units by mouth once daily. Taking 2000 units daily 0 No current facility-administered medications for this visit. Pill bottles are not present. Adherence: denies missed doses. Rx coverage: Payor: MEDICARE / Plan: MEDICARE A AND B / Product Type: Medicare / Medications affordable? Yes Patient Assistance Programs being utilized: [employer] Medication Status Renewal Due Where Delivered [employer] Approved 08/06/25 Patient home Humalog U100 PHARMACOTHERAPY PREVENTATIVE MEDS: On BARBARA/ARB: Yes On Statin: Yes On ASA: Yes EXAM: There were no vitals taken for this visit. Last 3 Encounter BP Readings: Date: BP: 01/02/2025 128/58 07/05/2024 124/56 05/01/2024 132/58 Wt: 88.9 kg (196 lb) BMI: 28.94 kg/(m2) LABS: Lab Results Component Value Date HBA1C 7.3 01/02/2025 HBA1C 7.6 07/05/2024 HBA1C 7.9 01/04/2024 HBA1C 9.3 08/21/2021 HBA1C 8.5 02/23/2021 HBA1C 7.4 11/23/2020 Glucose 136 01/02/2025 BUN 23 01/02/2025 Creatinine 1.64 01/02/2025 Sodium 139 01/02/2025 Potassium 4.7 01/02/2025 Chloride 104 01/02/2025 CO2 22 01/02/2025 Protein, Total 6.9 01/02/2025 Albumin 4.2 01/02/2025 Calcium 9.4 01/02/2025 Alkaline Phosphatase 134 01/02/2025 Bilirubin, Total 0.4 01/02/2025 AST 34 01/02/2025 ALT 35 01/02/2025 Lab Results Component Value Date CHOL 120 07/05/2024 CHOL 110 02/23/2021 CHOL 138 11/20/2018 LDL 65 07/05/2024 LDL 40 12/19/2022 LDL 53 02/23/2021 LDL 77 11/20/2018 HDL 27 07/05/2024 HDL 26 02/23/2021 HDL 25 11/20/2018 TG 141 07/05/2024 TG 156 02/23/2021 TG 179 11/20/2018 Albumin/Creat Ratio (mg/g) Date Value 01/02/2025 39 (H) eGFR-All Other Races (.) Date Value 08/21/2021 46 Estimated Glomerular Filtration Rate (mL/min/1.73m?) Date Value 01/02/2025 42 ASSESSMENT/PLAN: 1. Type 2 diabetes mellitus with stage 3 chronic kidney disease, with long-term current use of insulin, unspecified whether stage 3a or 3b CKD (HCC) - ICD9: 250.40, 585.3, V58.67, ICD10: E11.22, N18.30, Z79.4 - Controlled - Continue current medications - Statin prescribed - atorvastatin - Blood glucose monitoring on a continuous glucose monitoring schedule - Counseled on healthy diet and regular exercise - Discussed diabetic education issues of hypoglycemic/hyperglycemic symptoms - Advised against taking additional rapid-acting insulin in between meals to avoid risk of hypoglycemia - Follow up in 3 months per patient preference, sooner should any other issues arise. Overdue Diabetes Health Maintenance: Up to date on diabetes-related health maintenance Follow Up: Next PCP visit: 07/07/25 Next PharmD visit: 06/19/25 Roxy Kaplan, KatieD, BCACP Primary Care Clinical Electroencephalogram Technologist I spent a total of 20 minutes on the date of the service which included preparing to see the patient, [id number] patient care, completing clinical documentation, and counseling and educating the patient/family/caregiver. CNOV Observed: 03/20/2025 9:30 AM Status: COMPLETED Source: [facility] Office Visit (MEWO) JEET CASTANEDA ([id number]) 1940 M Date Time Provider Department 03/20/25 9:30 AM ROXY KAPLAN During your visit today, we recorded the following information about you: Roxy Kaplan RPh 03/20/2025 9:51 AM Signed Primary Care Pharmacy Visit CC (Reason for Consult): (E11.22, N18.30, Z79.4) Type 2 diabetes mellitus with stage 3 chronic kidney disease, with long-term current use of insulin, unspecified whether stage 3a or 3b CKD (HCC) (primary encounter diagnosis) Goal(s): A1c <7% per consult; however, would target goal of <8% given age Last Collaborating Provider Visit: 01/02/[address] Subhash Castaneda is a 84 year old male presenting for follow up visit in person. Patient consents to pharmacy collaborative practice agreement. Last Pharmacy Visit: 12/19/24 HPI: Reports doing well Reports had a low last night, treated with orange juice Sometimes gives an extra 4 units if BG is higher in between meals Has good supply of insulins Current DM Medications: Basaglar 32 units once daily at bedtime Humalog 10 units TID before meals - adds 1 unit if BG>200 before meal Previously Trialed DM Meds: Ozempic - GI side effects Metformin - stopped due to kidney fxn Farxiga - dizziness Diet Denies any recent changes GLYCEMIC CONTROL: Glucometer present at visit: Yes - Juan 2 reader Hypoglycemia: No CGM Data Past medical history reviewed. ALLERGIES Allergen Reactions Trazodone GI Upset Acyclovir Shortness of Breath Alfuzosin GI Upset Dilaudid [Hydromorp* Mental Status Change Doxepin Mental Status Change Effexor [Venlafaxin* panic Farxiga [Dapagliflo* Other: See Comments lightheadedness Flomax [Tamsulosin * GI Upset Hydromorphone Mental Status Change Keflex [Cephalexin] Hives Levaquin [Levofloxa* panic attack Lopid [Gemfibrozil] Losartan Mental Status Change hyponatremia Luvox Unknown Metformin GI Upset Metoprolol Tartrate Intolerance bradycardia at 12.5 w heart rate 48/ fatigue Mold Nortriptyline decrease libido Ozempic [Semaglutid* Vomiting Prozac [Fluoxetine * panic Ramipril Cough Serzone [Nefazodone* GI Upset Zyrtec [Cetirizine] Rash Current Outpatient Medications Medication Sig Dispense Refill amLODIPine (NORVASC) 10 mg tablet Take 1 tablet by mouth once daily. 90 tablet 1 atorvastatin (LIPITOR) 80 mg tablet Take 1 tablet by mouth once daily. [address] (PROTONIX) 40 mg tablet Take 1 tablet by mouth two times a day. 1/2 hour before meal 180 tablet 1 valsartan (DIOVAN) 320 mg tablet Take 1 tablet by mouth once daily. 90 tablet 1 finasteride (PROSCAR) 5 mg tablet Take 1 tablet by mouth once daily. 90 tablet 1 Insulin Dalton, Disposable, (BD ULTRA-FINE RHODA PEN NEEDLE) 32 gauge x Use 4 needles daily with insulin pen for Lantus and Novolog. DX:E11.22 200 each 11 dicyclomine (BENTYL) 10 mg capsule TAKE 1 CAPSULE BY MOUTH BEFORE MEALS AND AT BEDTIME 360 capsule 1 clopidogrel (PLAVIX) 75 mg tablet Take 1 tablet by mouth once daily. 90 tablet 1 simethicone, chewable (GAS RELIEF, SIMETHICONE,) 80 mg chewable tablet Take 1 tablet by mouth every 6 hours as needed. 90 tablet 1 insulin glargine 100 unit/mL (3 mL) Inject 32 Units subcutaneously daily at bedtime. Gets through [employer]. insulin lispro (HUMALOG KWIKPEN INSULIN) 100 unit/mL Inject 10 Units subcutaneously three times a day before meals. Patient assistance medication ([employer]) tamsulosin (FLOMAX) 0.4 mg Take 1 capsule by mouth every afternoon. nitroglycerin sublingual (NITROQUICK) 0.4 mg SL tablet Dissolve 1 tablet under the tongue every 5 minutes as needed for chest pain. 25 tablet 1 flash glucose sensor (FREESTYLE JUAN 2 SENSOR) kit 2 Each five times a day. DX E11.42 Insulin Yes 2 Kit 11 multivit-min/folic/vit K/lycop (ONE-A-DAY MEN'S MULTIVITAMIN ORAL) Take 1 tablet by mouth once daily. blood sugar diagnostic (BLOOD GLUCOSE TEST) test strip Test blood sugar four times daily. Dx E11.22, N18.3, Z79.4. Insulin: yes. Freestyle Lite brand preferred. 200 Strip 11 Lancets lancets Test blood sugar(s) 4 times daily. Dx: Type 2 DM - Uncontrolled E11.65 Insulin: Yes 200 Each 11 flash glucose sensor (FREESTYLE JUAN 14 DAY SENSOR) kit 2 Each four times daily. DX E11.9 Insulin Yes 2 Each 5 flash glucose scanning reader (FREESTYLE JUAN 14 DAY READER) 1 Device four times daily. DX E11.9 Insulin Yes 1 Each 0 Blood-Glucose Meter (FREESTYLE LITE METER) monitoring kit 1 Each as directed. 1 Each 0 clonazePAM (KLONOPIN) 0.5 mg tablet take 1 tablet by mouth twice a day if needed for anxiety 45 tablet 0 aspirin, enteric coated (ASPIR-LOW) 81 mg EC tablet Take 1 tablet by mouth once daily. cyanocobalamin (VITAMIN B-12) 1,000 mcg tab Take 1 tablet by mouth once daily. 0 Cholecalciferol, Vitamin D3, 1,000 unit cap Take 1,000 Units by mouth once daily. Taking 2000 units daily 0 No current facility-administered medications for this visit. Pill bottles are not present. Adherence: denies missed doses. Rx coverage: Payor: MEDICARE / Plan: MEDICARE A AND B / Product Type: Medicare / Medications affordable? Yes Patient Assistance Programs being utilized: [employer] Medication Status Renewal Due Where Delivered [employer] Approved 08/06/25 Patient home Humalog U100 PHARMACOTHERAPY PREVENTATIVE MEDS: On BARBARA/ARB: Yes On Statin: Yes On ASA: Yes EXAM: There were no vitals taken for this visit. Last 3 Encounter BP Readings: Date: BP: 01/02/2025 128/58 07/05/2024 124/56 05/01/2024 132/58 Wt: 88.9 kg (196 lb) BMI: 28.94 kg/(m2) LABS: Lab Results Component Value Date HBA1C 7.3 01/02/2025 HBA1C 7.6 07/05/2024 HBA1C 7.9 01/04/2024 HBA1C 9.3 08/21/2021 HBA1C 8.5 02/23/2021 HBA1C 7.4 11/23/2020 Glucose 136 01/02/2025 BUN 23 01/02/2025 Creatinine 1.64 01/02/2025 Sodium 139 01/02/2025 Potassium 4.7 01/02/2025 Chloride 104 01/02/2025 CO2 22 01/02/2025 Protein, Total 6.9 01/02/2025 Albumin 4.2 01/02/2025 Calcium 9.4 01/02/2025 Alkaline Phosphatase 134 01/02/2025 Bilirubin, Total 0.4 01/02/2025 AST 34 01/02/2025 ALT 35 01/02/2025 Lab Results Component Value Date CHOL 120 07/05/2024 CHOL 110 02/23/2021 CHOL 138 11/20/2018 LDL 65 07/05/2024 LDL 40 12/19/2022 LDL 53 02/23/2021 LDL 77 11/20/2018 HDL 27 07/05/2024 HDL 26 02/23/2021 HDL 25 11/20/2018 TG 141 07/05/2024 TG 156 02/23/2021 TG 179 11/20/2018 Albumin/Creat Ratio (mg/g) Date Value 01/02/2025 39 (H) eGFR-All Other Races (.) Date Value 08/21/2021 46 Estimated Glomerular Filtration Rate (mL/min/1.73m?) Date Value 01/02/2025 42 ASSESSMENT/PLAN: 1. Type 2 diabetes mellitus with stage 3 chronic kidney disease, with long-term current use of insulin, unspecified whether stage 3a or 3b CKD (HCC) - ICD9: 250.40, 585.3, V58.67, ICD10: E11.22, N18.30, Z79.4 - Controlled - Continue current medications - Statin prescribed - atorvastatin - Blood glucose monitoring on a continuous glucose monitoring schedule - Counseled on healthy diet and regular exercise - Discussed diabetic education issues of hypoglycemic/hyperglycemic symptoms - Advised against taking additional rapid-acting insulin in between meals to avoid risk of hypoglycemia - Follow up in 3 months per patient preference, sooner should any other issues arise. Overdue Diabetes Health Maintenance: Up to date on diabetes-related health maintenance Follow Up: Next PCP visit: 07/07/25 Next PharmD visit: 06/19/25 Roxy Kaplan, KatieD, BCACP Primary Care Clinical Electroencephalogram Technologist I spent a total of 20 minutes on the date of the service which included preparing to see the patient, [id number] patient care, completing clinical documentation, and counseling and educating the patient/family/caregiver. Allergies As of Date: 03/20/2025 Noted Allergy Reaction TRAZODONE 03/25/2005 8 - GI Upset ACYCLOVIR 05/10/2006 12 - Shortness of Breath ALFUZOSIN 11/27/2020 8 - GI Upset DILAUDID (HYDROMORPHONE (BULK)) 05/07/2015 1 - Mental Status Change DOXEPIN 03/25/2005 1 - Mental Status Change EFFEXOR (VENLAFAXINE HCL) 03/25/2005 Comments: panic FARXIGA (DAPAGLIFLOZIN) 09/20/2022 14 - Other: See Comments Comments: lightheadedness FLOMAX (TAMSULOSIN HCL) 05/23/2018 8 - GI Upset HYDROMORPHONE 05/02/2014 1 - Mental Status Change KEFLEX (CEPHALEXIN) 06/18/2019 4 - Hives LEVAQUIN (LEVOFLOXACIN) 03/25/2005 Comments: panic attack LOPID (GEMFIBROZIL) 03/25/2005 LOSARTAN 06/16/2011 1 - Mental Status Change Comments: hyponatremia LUVOX 09/20/2023 16 - Unknown METFORMIN 09/15/2010 8 - GI Upset METOPROLOL TARTRATE 11/27/2013 5 - Intolerance Comments: bradycardia at 12.5 w heart rate 48/ fatigue MOLD 03/25/2005 NORTRIPTYLINE 03/25/2005 Comments: decrease libido OZEMPIC (SEMAGLUTIDE) 02/28/2023 11 - Vomiting PROZAC (FLUOXETINE HCL) 03/25/2005 Comments: panic RAMIPRIL 09/15/2010 3 - Cough SERZONE (NEFAZODONE HCL) 03/25/2005 8 - GI Upset ZYRTEC (CETIRIZINE) 03/25/2005 2 - Rash Date Reviewed: 03/20/2025 Reviewed by: Roxy Kaplan RPh - Fully Assessed Reason for Visit: Diabetes [34] Primary Visit Diagnosis:Type 2 diabetes mellitus with stage 3 chronic kidney disease, with long-term current use of insulin, unspecified whether stage 3a or 3b CKD (HCC) [E11.22, N18.30, Z79.4] Prescriptions as of 03/20/2025 - amLODIPine (NORVASC) 10 mg tablet Take 1 tablet by mouth once daily. - atorvastatin (LIPITOR) 80 mg tablet Take 1 tablet by mouth once daily. - pantoprazole DR (PROTONIX) 40 mg tablet Take 1 tablet by mouth two times a day. 1/2 hour before meal - valsartan (DIOVAN) 320 mg tablet Take 1 tablet by mouth once daily. - finasteride (PROSCAR) 5 mg tablet Take 1 tablet by mouth once daily. - Insulin Dalton, Disposable, (BD ULTRA-FINE RHODA PEN NEEDLE) 32 gauge x 5/32 Use 4 needles daily with insulin pen for Lantus and Novolog. DX:E11.22 - dicyclomine (BENTYL) 10 mg capsule TAKE 1 CAPSULE BY MOUTH BEFORE MEALS AND AT BEDTIME - clopidogrel (PLAVIX) 75 mg tablet Take 1 tablet by mouth once daily. - simethicone, chewable (GAS RELIEF, SIMETHICONE,) 80 mg chewable tablet Take 1 tablet by mouth every 6 hours as needed. - insulin glargine 100 unit/mL (3 mL) Inject 32 Units subcutaneously daily at bedtime. Gets through [employer]. - insulin lispro (HUMALOG KWIKPEN INSULIN) 100 unit/mL Inject 10 Units subcutaneously three times a day before meals. Patient assistance medication ([facility]) - tamsulosin (FLOMAX) 0.4 mg Take 1 capsule by mouth every afternoon. - nitroglycerin sublingual (NITROQUICK) 0.4 mg SL tablet Dissolve 1 tablet under the tongue every 5 minutes as needed for chest pain. - flash glucose sensor (FREESTYLE JUAN 2 SENSOR) kit 2 Each five times a day. DX E11.42 Insulin Yes - multivit-min/folic/vit K/lycop (ONE-A-DAY MEN'S MULTIVITAMIN ORAL) Take 1 tablet by mouth once daily. - blood sugar diagnostic (BLOOD GLUCOSE TEST) test strip Test blood sugar four times daily. Dx E11.22, N18.3, Z79.4. Insulin: yes. Freestyle Lite brand preferred. - Lancets lancets Test blood sugar(s) 4 times daily. Dx: Type 2 DM - Uncontrolled E11.65 Insulin: Yes - flash glucose sensor (FREESTYLE JUAN 14 DAY SENSOR) kit 2 Each four times daily. DX E11.9 Insulin Yes - flash glucose scanning reader (FREESTYLE JUAN 14 DAY READER) 1 Device four times daily. DX E11.9 Insulin Yes - Blood-Glucose Meter (FREESTYLE LITE METER) monitoring kit 1 Each as directed. - clonazePAM (KLONOPIN) 0.5 mg tablet take 1 tablet by mouth twice a day if needed for anxiety - aspirin, enteric coated (ASPIR-LOW) 81 mg EC tablet Take 1 tablet by mouth once daily. - cyanocobalamin (VITAMIN B-12) 1,000 mcg tab Take 1 tablet by mouth once daily. - Cholecalciferol, Vitamin D3, 1,000 unit cap Take 1,000 Units by mouth once daily. Taking 2000 units daily Meds Comments as of 09/14/2023: 09/14/23 No medication changes with the past 30 days. Senait Armstrong RN Problem List As Of Date 03/20/2025 Noted Resolved CONSUELO (generalized anxiety disorder) [F41.1] 03/25/2005 Unspecified sleep apnea [G47.30] 03/25/2005 09/27/2016 Pure hypercholesterolemia [E78.00] 03/25/2005 09/27/2016 DYSMETABOLIC SYNDROME X [E88.810] 03/25/2005 Nonspecific abnormal results of liver function *03/25/2005 09/27/2016 CHRONIC LIVER DIS NEC [K76.89] 03/25/2005 Type 2 diabetes mellitus with hyperglycemia, wi*03/28/2005 IRRITABLE COLON [K58.9] 03/07/2006 Esophageal reflux [K21.9] 05/30/2006 08/21/2017 CVA [I67.89] DIABETES MELLITUS TYPE II UNCONTR UNCOMPL [IMO0* 03/03/2009 Mixed hyperlipidemia [E78.2] 07/10/2006 ROSACEA [L71.9] 02/02/2007 INTERTRIGO///ERYTHEMATOUS COND NEC [L53.8] 02/02/2007 03/14/2016 ACNE NEC [L70.8] 02/02/2007 03/03/2009 DERMATITIS NOS [L25.9] 02/02/2007 03/03/2009 HERPES SIMPLEX NOS [B00.9] 03/23/2007 FOLLICULITIS///HAIR DISEASES NEC [L67.8, L73.8] 09/18/2007 03/14/2016 CUTANEOUS CANDIDIASIS [B37.2] 09/18/2007 Pyoderma, unspecified [L08.0] 09/18/2007 08/23/2019 Balanoposthitis [N47.6] 10/22/2007 08/23/2019 Phlebitis and thrombophlebitis of other deep ve*01/01/2008 08/21/2017 Other and unspecified superficial injury of oth*03/19/2009 03/14/2016 DERMATITIS NOS [L25.9] 03/19/2009 Unspecified pruritic disorder [L29.9] 03/19/2009 03/14/2016 Other specified disease of sebaceous glands [L7*04/16/2009 08/23/2019 Scar condition and fibrosis of skin [L90.5] 04/16/2009 08/23/2019 Other specified disease of nail [L60.8] 04/16/2009 03/14/2016 Other malaise and fatigue [R53.81, R53.83] 08/13/2009 08/23/2019 Rectal bleeding [K62.5] 10/07/2009 08/21/2017 Right Inguinal Hernia [K40.90] 10/07/2009 History of DVT (deep vein thrombosis) [Z86.718] 11/24/2009 Rotator cuff (capsule) sprain [S43.429A] 04/07/2010 08/23/2019 Hyperglycemia [R73.9] 05/31/2010 09/27/2016 Panic disorder [F41.0]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 is a 83 year old male who presents here today for Above Complaints.. DIABETES MELLITUS: Mr. Castaneda was last seen 6 months ago by our office. Following up with pharmacist with last OV on 06/13 without change to regimen with improving control with his Brandpotionstyle juan monitor. Since our last visit he denies excessive thirst or increased frequency of urination, and low sugar/hypoglycemic reactions. Positive for neuropathy in his feet and occasional blurred vision. Follows a diabetic diet most of the time. He is compliant with medication(s) and is tolerating med(s) without any side effects. He reports checking his glucose on a four times a day schedule with sugars in the <150 range typically. 30 day average 152. Patient's last HgA1C was Hemoglobin A1C (%) Date Value 01/04/2024 7.9 06/23/2023 7.7 08/21/2021 9.3 02/23/2021 8.5 ) Last Ophthalmology exam was within the past 12 months Last Podiatry exam was within the past 12 months HTN: Patient admits to headache recently with some high blood pressure readings at home. The other day was 161/70. Specifically denies. Patient denies any side effects of his medication(s) and is compliant with their regimen. Jeet gets minimal exercise. He watches his diet for sodium, low fat and low cholesterol most of the time. Last 3 Encounter BP Readings: Date: BP: 07/05/2024 144/62 05/01/2024 132/58 03/14/2024 126/56 CAD: Last OV about 1 year ago with [facility] cardiology. Patient thinks he has appointment in August. Asymptomatic on current regimen. BPH: No changes to regimen at last OV with urology in april. Continues with flomax and finasteride. Getting up 2-3 times per night. GERD improved with protonix. Uses mylanta PRN for breakthrough. Refusing vaccinations today. Past medical history, appointments, medications, allergies reviewed. Previous Medical History PAST MEDICAL HISTORY Diagnosis Date Acute, but ill-defined, cerebrovascular disease Anxiety state, unspecified 03/25/2005 [facility] BPH (benign prostatic hyperplasia) CAD (coronary artery disease) s/p stent, seeing Dr. Duque Chronic deep vein thrombosis (DVT) (HCC) left popliteal. diagnosed 2013 Chronic kidney disease DVT (deep venous thrombosis) (HCC) after appendectomy Dysmetabolic syndrome X 03/25/2005 Fatty liver disease, nonalcoholic GERD (gastroesophageal reflux disease) Hemorrhage of gastrointestinal tract, unspecified Hepatitis unknown type IBS (irritable bowel syndrome) Meralgia paraesthetica Neuralgia Nonspecific abnormal results of liver function study 03/25/2005 Onychomycosis CATHY on CPAP Not using CPAP currently Overweight Panic disorder Pure hypercholesterolemia 03/25/2005 Right inguinal hernia Rosacea Type II or unspecified type diabetes mellitus without mention of complication, uncontrolled Dr. Modi Umbilical hernia Previous Surgical History PAST SURGICAL HISTORY Procedure Laterality Date APPENDECTOMY 06/15/1993 CHOLECYSTECTOMY [id number] Cholecystectomy COLONOSCOPY FLX DX W/COLLJ SPEC WHEN PFRMD 01/04/2002 Colonoscopy COLONOSCOPY W/BIOPSY SINGLE/MULTIPLE 10/23/2009 Hemorrhoids DEBRIDEMENT OPEN WOUND 20 SQ CM/< 04/15/2014 ABDOMEN ENTERORRHAPHY MULTIPLE PERFORATIONS 04/15/2014 ABDOMEN LEFT HEART CATH,PERCUTANEOUS 08/07/1998 PAST SURGICAL HISTORY OF Left 10/27/2023 hydrocelectomy-Dr. Arellano RPR 1ST INGUN HRNA AGE 5 YRS/> REDUCIBLE 10/27/2009 Right RPR UMBILICAL HERNIA < 5 YRS REDUCIBLE [id number] Hernia repair, umbilical Family History FAMILY HISTORY Problem Relation Age of Onset Heart Mother [place] Diabetes Mother Coronary Artery Disease Father Diabetes Sister Schizophrenia Sister Diabetes Maternal Grandmother Cancer Maternal Grandfather Patient Allergies ALLERGIES Allergen Reactions Trazodone GI Upset Acyclovir Shortness of Breath Alfuzosin GI Upset Dilaudid [Hydromorp* Mental Status Change Doxepin Mental Status Change Effexor [Venlafaxin* panic Farxiga [Dapagliflo* Other: See Comments lightheadedness Flomax [Tamsulosin * GI Upset Hydromorphone Mental Status Change Keflex [Cephalexin] Hives Levaquin [Levofloxa* panic attack Lopid [Gemfibrozil] Losartan Mental Status Change hyponatremia Luvox Unknown Metformin GI Upset Metoprolol Tartrate Intolerance bradycardia at 12.5 w heart rate 48/ fatigue Mold Nortriptyline decrease libido Ozempic [Semaglutid* Vomiting Prozac [Fluoxetine * panic Ramipril Cough Serzone [Nefazodone* GI Upset Zyrtec [Cetirizine] Rash Current Medications Current Outpatient Medications on File Prior to Visit Medication Sig simethicone, chewable (GAS RELIEF, SIMETHICONE,) 80 mg chewable tablet Take 1 tablet by mouth every 6 hours as needed. insulin glargine 100 unit/mL (3 mL) Inject 32 Units subcutaneously daily at bedtime. Gets through [employer] [facility]. insulin lispro (HUMALOG KWIKPEN INSULIN) 100 unit/mL Inject 10 Units subcutaneously three times a day before meals. [facility] dicyclomine (BENTYL) 10 mg capsule TAKE 1 CAPSULE BY MOUTH BEFORE MEALS AND AT BEDTIME pantoprazole DR (PROTONIX) 40 mg tablet Take 1 tablet by mouth two times a day. 1/2 hour before meal amLODIPine (NORVASC) 10 mg tablet Take 1 tablet by mouth once daily. valsartan (DIOVAN) 320 mg tablet Take 1 tablet by mouth once daily. atorvastatin (LIPITOR) 80 mg tablet Take 1 tablet by mouth once daily. finasteride (PROSCAR) 5 mg tablet Take 1 tablet by mouth once daily. Insulin Dalton, Disposable, (BD ULTRA-FINE RHODA PEN NEEDLE) 32 gauge x 5/32 Use 4 needles daily with insulin pen for Lantus and Novolog. DX:E11.22 tamsulosin (FLOMAX) 0.4 mg Take 1 capsule by mouth every afternoon. nitroglycerin sublingual (NITROQUICK) 0.4 mg SL tablet Dissolve 1 tablet under the tongue every 5 minutes as needed for chest pain. flash glucose sensor (FREESTYLE JUAN 2 SENSOR) kit 2 Each five times a day. DX E11.42 Insulin Yes multivit-min/folic/vit K/lycop (ONE-A-DAY MEN'S MULTIVITAMIN ORAL) Take 1 tablet by mouth once daily. blood sugar diagnostic (BLOOD GLUCOSE TEST) test strip Test blood sugar four times daily. Dx E11.22, N18.3, Z79.4. Insulin: yes. Freestyle Lite brand preferred. Lancets lancets Test blood sugar(s) 4 times daily. Dx: Type 2 DM - Uncontrolled E11.65 Insulin: Yes flash glucose sensor (FREESTYLE JUAN 14 DAY SENSOR) kit 2 Each four times daily. DX E11.9 Insulin Yes flash glucose scanning reader (FREESTYLE JUAN 14 DAY READER) 1 Device four times daily. DX E11.9 Insulin Yes Blood-Glucose Meter (FREESTYLE LITE METER) monitoring kit 1 Each as directed. clonazePAM (KLONOPIN) 0.5 mg tablet take 1 tablet by mouth twice a day if needed for anxiety aspirin, enteric coated (ASPIR-LOW) 81 mg EC tablet Take 1 tablet by mouth once daily. cyanocobalamin (VITAMIN B-12) 1,000 mcg tab Take 1 tablet by mouth once daily. Cholecalciferol, Vitamin D3, 1,000 unit cap Take 1,000 Units by mouth once daily. Taking 2000 units daily clopidogrel 75 mg ORAL tablet Take 1 tablet by mouth once daily. No current facility-administered medications on file prior to visit. Social History Social History Tobacco Use Smoking status: Former Types: Cigarettes Smokeless tobacco: Never Substance Use Topics Alcohol use: No Drug use: No Review of Symptoms REVIEW OF SYSTEMS GENERAL: No weight loss, malaise or fevers RESPIRATORY: Negative for cough, hemoptysis, wheezing, COPD, dyspnea or shortness of breath CARDIOVASCULAR: Negative for chest pain, leg swelling, hypertension, CHF or palpitations GI: No nausea, vomiting. Admits to chronic diarrhea. SKIN: Negative for lesions, rash, and itching EXAM: BP 124/56 Pulse 64 Resp 16 Wt 88.2 kg (194 lb 6.4 oz) SpO2 97% BMI 28.71 kg/m? General Appearance: Well appearing, alert, in no acute distress, well-hydrated, well nourished.. Skin: Skin color, texture, turgor normal, no suspicious rashes or lesions. Lungs: Lungs clear to auscultation. No wheezing, rhonchi, rales.. Heart: RRR without murmur, gallop, or rubs. No ectopy. Abdomen: Normal abdominal exam, Abdomen soft, non-tender. Bowel sounds normal. No masses, organomegaly. Extremities: No deformities, edema, skin discoloration, clubbing or cyanosis. Good capillary refill. Health Maintenance List Depression Screening Never done Advance Directive Discussion due on 08/07/2023 Influenza Vaccine(1) due on 04/07/2024 Covid-19 Vaccine( - season) due on 04/07/2024 Hepatitis A Vaccine(1 of 2 - Risk 2-dose series) due on 09/04/2024 RSV Vaccine(1 - 1-dose 75+ series) due on 09/04/2024 Shingrix Vaccine(1 of 2) due on 09/04/2024 Pneumococcal Vaccine: 65+(2 of 2 - PCV) due on 09/04/2024 HbA1C due on 07/06/2024 Dilated Retinal Exam due on 09/08/2024 Urine Albumin:Creatinine Ratio due on 09/22/2024 Diabetic Foot Exam due on 01/02/2025 LDL Cholesterol due on 01/03/2025 DTaP,Tdap,Td Vaccine(4 - Tdap) due on 11/22/2027 Colorectal Cancer Screening Discontinued Data reviewed Latest Ref Rng 01/04/2024 Cholesterol, Total <200 mg/dL 109 Triglyceride <150 mg/dL 145 HDL Cholesterol >39 mg/dL 27 (L) Non HDL Cholesterol <130 mg/dL 82 Fasting Time hrs 16 VLDL Cholesterol <30 mg/dL 29 TC:HDL Ratio <5.10 4.04 LDL Cholesterol <100 mg/dL 53 LDL:HDL Ratio <2.54 1.96 Hemoglobin A1C 4.3 - 5.6 % 7.9 (H) Estimated Average Glucose mg/dL 180 Legend: (L) Low (H) High ASSESSMENT/PLAN: 1. Type 2 diabetes mellitus with diabetic polyneuropathy, with long-term current use of insulin (HCC) - ICD9: 250.60, 357.2, V58.67, ICD10: E11.42, Z79.4 (primary diagnosis) - Control undetermined, due for labs - Continue current medications - Statin prescribed - atorvastatin - Blood glucose monitoring on a four times daily schedule - Counseled on healthy diet and regular exercise - Discussed need for and benefit of weight loss. BMI 28.71 kg/(m2) - Discussed diabetic education issues of diabetes complications and monitoring required, hypoglycemic/hyperglycemic symptoms, and medication-specific side effects and monitoring - Follow up in 6 months, sooner should any other issues arise. - COMPREHENSIVE METABOLIC PANEL - HEMOGLOBIN A1C - LIPID PANEL, NONFASTING 2. Primary hypertension - ICD9: 401.9, ICD10: I10 - Controlled - Continue current medications - Recommend home blood pressure monitoring, to bring results to next visit - Encouraged sodium restriction, DASH or Mediterranean diet - Recommend regular aerobic exercise 3. Mixed hyperlipidemia - ICD9: 272.2, ICD10: E78.2 - Control undetermined, due for labs - Continue current medications - Counseled on healthy diet and regular exercise 4. ASHD (arteriosclerotic heart disease) - ICD9: 414.00, ICD10: I25.10 Asymptomatic on medical management. F/u with cardiology as scheduled. No changes to regimen. 5. CATHY (obstructive sleep apnea) - ICD9: 327.23, ICD10: G47.33 Managed by sleep medicine. No change in regimen at last OV. F/u in 1 year. Continue nightly use. 6. Gastroesophageal reflux disease, unspecified whether esophagitis present - ICD9: 530.81, ICD10: K21.9 - Discussed lifestyle modifications including losing weight, limiting caffeine, no meals three hours before sleep, and head of bed elevation - Continue treatment with Protonix 7. Benign prostatic hyperplasia with nocturia - ICD9: 600.01, 788.43, ICD10: N40.1, R35.1 Managed by urology. No change in regimen. Red flags for re-assessment reviewed with patient in detail. Luisito Cullen MD PROGRESS Observed: 06/13/2024 11:00 AM Status: COMPLETED Source: [facility] HNO ID: [id number] Author: ROXY KAPLAN [facility] Service: ? Author Type: Pharmacist Type: Progress Notes Filed: 06/13/2024 11:17 Note Text: Primary Care Pharmacy Visit CC (Reason for Consult): (E11.22, N18.30, Z79.4) Type 2 diabetes mellitus with stage 3 chronic kidney disease, with long-term current use of insulin, unspecified whether stage 3a or 3b CKD (HCC) (primary encounter diagnosis) Goal(s): A1c <7% Last Collaborating Provider Visit: 03/14/[address] Subhash Curiel Brittni is a 83 year old male presenting for follow up visit in person. Patient consents to pharmacy collaborative practice agreement. Last Pharmacy Visit: 03/21/24 HPI: Reports doing well Recently came back from [place] after being there for a month Had 1 low alert but double checked with fingerstick and was not low so thinks it was because it was close to changing sensor Current DM Medications: Basaglar 32 units once daily at bedtime Humalog 10 units TID before meals - adds 1 unit if BG>200 before meal Previously Trialed DM Meds: Ozempic - GI side effects Metformin - stopped due to kidney fxn Farxiga - dizziness Diet Denies any recent changes GLYCEMIC CONTROL: Glucometer present at visit: Yes - Juan 2 reader Hypoglycemia: Yes per CGM report however patient denies symptoms/true low given recheck with fingersticks CGM Data Past medical history reviewed. ALLERGIES Allergen Reactions Trazodone GI Upset Acyclovir Shortness of Breath Alfuzosin GI Upset Dilaudid [Hydromorp* Mental Status Change Doxepin Mental Status Change Effexor [Venlafaxin* panic Farxiga [Dapagliflo* Other: See Comments lightheadedness Flomax [Tamsulosin * GI Upset Hydromorphone Mental Status Change Keflex [Cephalexin] Hives Levaquin [Levofloxa* panic attack Lopid [Gemfibrozil] Losartan Mental Status Change hyponatremia Luvox Unknown Metformin GI Upset Metoprolol Tartrate Intolerance bradycardia at 12.5 w heart rate 48/ fatigue Mold Nortriptyline decrease libido Ozempic [Semaglutid* Vomiting Prozac [Fluoxetine * panic Ramipril Cough Serzone [Nefazodone* GI Upset Zyrtec [Cetirizine] Rash Current Outpatient Medications Medication Sig Dispense Refill simethicone, chewable (GAS RELIEF, SIMETHICONE,) 80 mg chewable tablet Take 1 tablet by mouth every 6 hours as needed. 90 tablet 1 insulin glargine 100 unit/mL (3 mL) Inject 32 Units subcutaneously daily at bedtime. Gets through [employer] [facility]. insulin lispro (HUMALOG KWIKPEN INSULIN) 100 unit/mL Inject 10 Units subcutaneously three times a day before meals. Patient assistance medication ([facility]) dicyclomine (BENTYL) 10 mg capsule TAKE 1 CAPSULE BY MOUTH BEFORE MEALS AND AT BEDTIME [address] (PROTONIX) 40 mg tablet Take 1 tablet by mouth two times a day. 1/2 hour before meal 180 tablet 1 amLODIPine (NORVASC) 10 mg tablet Take 1 tablet by mouth once daily. 90 tablet 1 valsartan (DIOVAN) 320 mg tablet Take 1 tablet by mouth once daily. 90 tablet 1 atorvastatin (LIPITOR) 80 mg tablet Take 1 tablet by mouth once daily. 90 tablet 1 finasteride (PROSCAR) 5 mg tablet Take 1 tablet by mouth once daily. 90 tablet 3 Insulin Dalton, Disposable, (BD ULTRA-FINE RHODA PEN NEEDLE) 32 gauge x 5/32 Use 4 needles daily with insulin pen for Lantus and Novolog. DX:E11.22 200 Each 11 tamsulosin (FLOMAX) 0.4 mg Take 1 capsule by mouth every afternoon. nitroglycerin sublingual (NITROQUICK) 0.4 mg SL tablet Dissolve 1 tablet under the tongue every 5 minutes as needed for chest pain. 25 tablet 1 flash glucose sensor (FREESTYLE JUAN 2 SENSOR) kit 2 Each five times a day. DX E11.42 Insulin Yes 2 Kit 11 multivit-min/folic/vit K/lycop (ONE-A-DAY MEN'S MULTIVITAMIN ORAL) Take 1 tablet by mouth once daily. blood sugar diagnostic (BLOOD GLUCOSE TEST) test strip Test blood sugar four times daily. Dx E11.22, N18.3, Z79.4. Insulin: yes. Freestyle Lite brand preferred. 200 Strip 11 Lancets lancets Test blood sugar(s) 4 times daily. Dx: Type 2 DM - Uncontrolled E11.65 Insulin: Yes 200 Each 11 flash glucose sensor (FREESTYLE JUAN 14 DAY SENSOR) kit 2 Each four times daily. DX E11.9 Insulin Yes 2 Each 5 flash glucose scanning reader (FREESTYLE JUAN 14 DAY READER) 1 Device four times daily. DX E11.9 Insulin Yes 1 Each 0 Blood-Glucose Meter (FREESTYLE LITE METER) monitoring kit 1 Each as directed. 1 Each 0 clonazePAM (KLONOPIN) 0.5 mg tablet take 1 tablet by mouth twice a day if needed for anxiety 45 tablet 0 aspirin, enteric coated (ASPIR-LOW) 81 mg EC tablet Take 1 tablet by mouth once daily. cyanocobalamin (VITAMIN B-12) 1,000 mcg tab Take 1 tablet by mouth once daily. 0 Cholecalciferol, Vitamin D3, 1,000 unit cap Take 1,000 Units by mouth once daily. Taking 2000 units daily 0 clopidogrel 75 mg ORAL tablet Take 1 tablet by mouth once daily. 30 tablet 0 No current facility-administered medications for this visit. Pill bottles are not present. Adherence: denies missed doses. Rx coverage: Payor: MEDICARE / Plan: MEDICARE A AND B / Product Type: Medicare / Medications affordable? Enrolled in [employer] (Basaglar and [employer]) PHARMACOTHERAPY PREVENTATIVE MEDS: On BARBARA/ARB: Yes On Statin: Yes On ASA: Yes EXAM: There were no vitals taken for this visit. Last 3 Encounter BP Readings: Date: BP: 05/01/2024 132/58 03/14/2024 126/56 01/03/2024 118/62 Wt: 88.8 kg (195 lb 12.3 oz) BMI: 28.91 kg/(m2) LABS: Lab Results Component Value Date HBA1C 7.9 01/04/2024 HBA1C 7.7 06/23/2023 HBA1C 7.2 03/14/2023 HBA1C 9.3 08/21/2021 HBA1C 8.5 02/23/2021 HBA1C 7.4 11/23/2020 Glucose 193 11/02/2023 BUN 30 11/02/2023 Creatinine 1.56 11/02/2023 Sodium 134 11/02/2023 Potassium 4.6 11/02/2023 Chloride 103 11/02/2023 CO2 18 11/02/2023 Protein, Total 6.4 11/02/2023 Albumin 3.9 11/02/2023 Calcium 8.7 11/02/2023 Alkaline Phosphatase 111 11/02/2023 Bilirubin, Total 0.3 11/02/2023 AST 36 11/02/2023 ALT 51 11/02/2023 Lab Results Component Value Date CHOL 109 01/04/2024 CHOL 110 02/23/2021 CHOL 138 11/20/2018 LDL 53 01/04/2024 LDL 40 12/19/2022 LDL 53 02/23/2021 LDL 77 11/20/2018 HDL 27 01/04/2024 HDL 26 02/23/2021 HDL 25 11/20/2018 TG 145 01/04/2024 TG 156 02/23/2021 TG 179 11/20/2018 Albumin/Creat Ratio (mg/g) Date Value 09/22/2023 45 (H) eGFR-All Other Races (.) Date Value 08/21/2021 46 Estimated Glomerular Filtration Rate (mL/min/1.73m?) Date Value 11/02/2023 44 ASSESSMENT/PLAN: 1. Type 2 diabetes mellitus with stage 3 chronic kidney disease, with long-term current use of insulin, unspecified whether stage 3a or 3b CKD (HCC) - ICD9: 250.40, 585.3, V58.67, ICD10: E11.22, N18.30, Z79.4 - Improving control - Continue current medications - Statin prescribed - atorvastatin - Blood glucose monitoring on a continuous glucose monitoring schedule - Counseled on healthy diet and regular exercise - Discussed diabetic education issues of hypoglycemic/hyperglycemic symptoms - Follow up in 3 months, sooner should any other issues arise. Follow Up: Next PCP visit: 07/05/24 Next PharmD visit: 09/12/24 Roxy Kaplan, KatieD, BCACP Primary Care Clinical Electroencephalogram Technologist I spent a total of 25 minutes on the date of the service which included preparing to see the patient, [id number] patient care, completing clinical documentation, and counseling and educating the patient/family/caregiver. CNOV Observed: 06/13/2024 11:00 AM Status: COMPLETED Source: [facility] Office Visit (MEWO) JEET CASTANEDA ([id number]) 1940 M Date Time Provider Department 06/13/24 11:00 AM ROXY KAPLAN CLAY During your visit today, we recorded the following information about you: Roxy Kaplan [facility] 06/13/2024 11:17 AM Signed Primary Care Pharmacy Visit CC (Reason for Consult): (E11.22, N18.30, Z79.4) Type 2 diabetes mellitus with stage 3 chronic kidney disease, with long-term current use of insulin, unspecified whether stage 3a or 3b CKD (HCC) (primary encounter diagnosis) Goal(s): A1c <7% Last Collaborating Provider Visit: 03/14/[address] Subhash Curiel Brittni is a 83 year old male presenting for follow up visit in person. Patient consents to pharmacy collaborative practice agreement. Last Pharmacy Visit: 03/21/24 HPI: Reports doing well Recently came back from [place] after being there for a month Had 1 low alert but double checked with fingerstick and was not low so thinks it was because it was close to changing sensor Current DM Medications: Basaglar 32 units once daily at bedtime Humalog 10 units TID before meals - adds 1 unit if BG>200 before meal Previously Trialed DM Meds: Ozempic - GI side effects Metformin - stopped due to kidney fxn Farxiga - dizziness Diet Denies any recent changes GLYCEMIC CONTROL: Glucometer present at visit: Yes - Juan 2 reader Hypoglycemia: Yes per CGM report however patient denies symptoms/true low given recheck with fingersticks CGM Data Past medical history reviewed. ALLERGIES Allergen Reactions Trazodone GI Upset Acyclovir Shortness of Breath Alfuzosin GI Upset Dilaudid [Hydromorp* Mental Status Change Doxepin Mental Status Change Effexor [Venlafaxin* panic Farxiga [Dapagliflo* Other: See Comments lightheadedness Flomax [Tamsulosin * GI Upset Hydromorphone Mental Status Change Keflex [Cephalexin] Hives Levaquin [Levofloxa* panic attack Lopid [Gemfibrozil] Losartan Mental Status Change hyponatremia Luvox Unknown Metformin GI Upset Metoprolol Tartrate Intolerance bradycardia at 12.5 w heart rate 48/ fatigue Mold Nortriptyline decrease libido Ozempic [Semaglutid* Vomiting Prozac [Fluoxetine * panic Ramipril Cough Serzone [Nefazodone* GI Upset Zyrtec [Cetirizine] Rash Current Outpatient Medications Medication Sig Dispense Refill simethicone, chewable (GAS RELIEF, SIMETHICONE,) 80 mg chewable tablet Take 1 tablet by mouth every 6 hours as needed. 90 tablet 1 insulin glargine 100 unit/mL (3 mL) Inject 32 Units subcutaneously daily at bedtime. Gets through [employer]. insulin lispro (HUMALOG KWIKPEN INSULIN) 100 unit/mL Inject 10 Units subcutaneously three times a day before meals. [facility] [facility]) dicyclomine (BENTYL) 10 mg capsule TAKE 1 CAPSULE BY MOUTH BEFORE MEALS AND AT BEDTIME [address] (PROTONIX) 40 mg tablet Take 1 tablet by mouth two times a day. 1/2 hour before meal 180 tablet 1 amLODIPine (NORVASC) 10 mg tablet Take 1 tablet by mouth once daily. 90 tablet 1 valsartan (DIOVAN) 320 mg tablet Take 1 tablet by mouth once daily. 90 tablet 1 atorvastatin (LIPITOR) 80 mg tablet Take 1 tablet by mouth once daily. 90 tablet 1 finasteride (PROSCAR) 5 mg tablet Take 1 tablet by mouth once daily. 90 tablet 3 Insulin Dalton, Disposable, (BD ULTRA-FINE RHODA PEN NEEDLE) 32 gauge x Use 4 needles daily with insulin pen for Lantus and Novolog. DX:E11.22 200 Each 11 tamsulosin (FLOMAX) 0.4 mg Take 1 capsule by mouth every afternoon. nitroglycerin sublingual (NITROQUICK) 0.4 mg SL tablet Dissolve 1 tablet under the tongue every 5 minutes as needed for chest pain. 25 tablet 1 flash glucose sensor (FREESTYLE JUAN 2 SENSOR) kit 2 Each five times a day. DX E11.42 Insulin Yes 2 Kit 11 multivit-min/folic/vit K/lycop (ONE-A-DAY MEN'S MULTIVITAMIN ORAL) Take 1 tablet by mouth once daily. blood sugar diagnostic (BLOOD GLUCOSE TEST) test strip Test blood sugar four times daily. Dx E11.22, N18.3, Z79.4. Insulin: yes. Freestyle Lite brand preferred. 200 Strip 11 Lancets lancets Test blood sugar(s) 4 times daily. Dx: Type 2 DM - Uncontrolled E11.65 Insulin: Yes 200 Each 11 flash glucose sensor (FREESTYLE JUAN 14 DAY SENSOR) kit 2 Each four times daily. DX E11.9 Insulin Yes 2 Each 5 flash glucose scanning reader (FREESTYLE JUAN 14 DAY READER) 1 Device four times daily. DX E11.9 Insulin Yes 1 Each 0 Blood-Glucose Meter (FREESTYLE LITE METER) monitoring kit 1 Each as directed. 1 Each 0 clonazePAM (KLONOPIN) 0.5 mg tablet take 1 tablet by mouth twice a day if needed for anxiety 45 tablet 0 aspirin, enteric coated (ASPIR-LOW) 81 mg EC tablet Take 1 tablet by mouth once daily. cyanocobalamin (VITAMIN B-12) 1,000 mcg tab Take 1 tablet by mouth once daily. 0 Cholecalciferol, Vitamin D3, 1,000 unit cap Take 1,000 Units by mouth once daily. Taking 2000 units daily 0 clopidogrel 75 mg ORAL tablet Take 1 tablet by mouth once daily. 30 tablet 0 No current facility-administered medications for this visit. Pill bottles are not present. Adherence: denies missed doses. Rx coverage: Payor: MEDICARE / Plan: MEDICARE A AND B / Product Type: Medicare / Medications affordable? Enrolled in [employer] (Basaglar and [employer]) PHARMACOTHERAPY PREVENTATIVE MEDS: On BARBARA/ARB: Yes On Statin: Yes On ASA: Yes EXAM: There were no vitals taken for this visit. Last 3 Encounter BP Readings: Date: BP: 05/01/2024 132/58 03/14/2024 126/56 01/03/2024 118/62 Wt: 88.8 kg (195 lb 12.3 oz) BMI: 28.91 kg/(m2) LABS: Lab Results Component Value Date HBA1C 7.9 01/04/2024 HBA1C 7.7 06/23/2023 HBA1C 7.2 03/14/2023 HBA1C 9.3 08/21/2021 HBA1C 8.5 02/23/2021 HBA1C 7.4 11/23/2020 Glucose 193 11/02/2023 BUN 30 11/02/2023 Creatinine 1.56 11/02/2023 Sodium 134 11/02/2023 Potassium 4.6 11/02/2023 Chloride 103 11/02/2023 CO2 18 11/02/2023 Protein,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 [id number] [place] [address] [facility] 07/05/2024 Primary Insurance:MEDICARE A AND BPolicy Number: [id number] Date:8329-97-25Ljig Name:Bren MONCADA: [id number] [place], [place] [address] [place] [address] 07/05/2024 Secondary Insura nce:MMO MEDICARE SUPPLEMENTPolicy Number: [id number] Date:7361-33-25Sttw Name:Windy MONCADA: [id number] [address] 06/13/2024 Primary Insurance:MEDICARE A AND BPolicy Number: [id number] Date:5840-71-19Fitc Name:Bren MONCADA: [id number] [address] 06/13/2024 Secondary Insura nce:MMO MEDICARE SUPPLEMENTPolicy Number: [id number] Date:8795-71-98Ouhm Name:Windy MONCADA: [id number] [place], [place] [address] [place] [address]
[2025-05-06 11:51] LABS: PSA,Total - Annual Screen 0.75 ng/mL (0.02-4.00)
== END | disposition home or self-care (01) ==
LOC: LAB 10:22
PROVIDERS: PCP Family Medicine; Referring Provider Urology; Visit Provider Urology
DX: Z12.5 Encounter for screening for malignant neoplasm of prostate (principal)
CPT/HCPCS: 36415; 84153; G0103

== ENCOUNTER → 2025-06-05 | Outpatient (CLI) | payer MEDICARE, OTHER, SELFPAY ==
[2025-06-05 10:30] LABS: PTHIN 37 pg/mL (11-61)
[2025-06-05 10:34] LABS: Creatinine, Urine (random) 122.00 mg/dL (39.00-259.00); Protein, Urine (Random) 10.6 mg/dL (0.0-12.0); Protein:Creat Ratio 87 mg/g CRE (0-200)
[2025-06-05 10:35] LABS: Albumin, Serum 3.9 g/dL (3.4-4.8); Anion Gap 10 (5-15); BUN 25 mg/dL (4-19); BUN/Creat Ratio 13.8 RATIO (10-20); Calcium,Total 9.0 mg/dL (7.6-11.0); Carbon Dioxide 23.3 mmol/L (21.0-32.0); Chloride 104 mmol/L (98-108); Glucose 135 mg/dL (70-99); Potassium 4.9 mmol/L (3.3-5.1)
== END | disposition home or self-care (01) ==
LOC: LAB.FUTURE 08:43 → LAB 08:43
PROVIDERS: PCP Family Medicine; Visit Provider Internal Medicine Nephrology
DX: E11.22 Type 2 diabetes mellitus with diabetic chronic kidney disease (principal); N18.32 Chronic kidney disease, stage 3b
CPT/HCPCS: 36415; 80069; 82570; 83970; 84156